=== PATIENT | female | born 1935 | race Caucasian/White ===

== ENCOUNTER 2022-01-13 19:15 | Inpatient (IN) | payer MEDICARE, BC, SELFPAY ==
[2022-01-13 19:25] VITALS: BP 219/109; PULSE 74; RESP 18; TEMP 36.2; O2SAT 95; BMI 26.1
[2022-01-13 19:30] VITALS: BP 208/107; PULSE 71; RESP 16; O2SAT 97
--- NOTE | 2022-01-13 19:49 | ED.GENADULT ---
HPI - General Adult General Chief complaint: Weakness Stated complaint: Diarrhea, Shaking, med reaction Time Seen by Provider: 01/13/22 19:42 History of Present Illness HPI narrative: This 86-year-old female comes in reporting 3 days of symptoms including generalized weakness, nausea, lightheadedness, dry mouth, decreased appetite. She states that she started taking Zoloft 25 mg just before these symptoms began. Prior to this she was in her normal health with prior history of hypertension and back pain. It was after taking the Zoloft that she began having these symptoms. She states that she did not take this medicine today. Her last dose was yesterday morning. She does not report any fevers or chest pain. She does not have any shortness of breath. Related Data Home Medications Medication Instructions Recorded Confirmed hydrochlorothiazide 25 mg tablet mg 01/13/22 potassium chloride 20 mEq meq PO 01/13/22 tablet,extended release(part/cryst) sertraline 25 mg tablet mg 01/13/22 simvastatin 20 mg tablet mg 01/13/22 triamcinolone acetonide 0.1 % applic topical 01/13/22 topical cream Allergies Allergy/AdvReac Type Severity Reaction Status Date / Time lisinopril Allergy Mild Verified 01/13/22 19:35 losartan Allergy Verified 01/13/22 19:35 Penicillins Allergy Verified 01/13/22 19:35 Review of Systems Status of ROS: Reports: 10 or more systems reviewed and unremarkable except as noted in History and below Narrative: Constitutional: No fevers, no weight gain or loss. Eyes: No discharge. No vision changes. HENT: No congestion, no sore throat, no ear pain. Cardiovascular: No chest pain, no palpitations. Respiratory: No shortness of breath, no wheezes, no cough. Gastrointestinal: No abdominal pain, no vomiting, no diarrhea. She does report nausea and loss of appetite. Genitourinary: No dysuria, no hematuria. Musculoskeletal: Normal range of motion. Skin: No rashes, no pruritis. Neurological: No dizziness, weakness, sensory change, speech change. Endo/Heme/Allergies: No bruising or bleeding. No polydipsia. Pysch: no suicidality, no anxiety, no insomnia. All other systems reviewed and are negative. [facility] Medical History (Updated 01/13/22 @ 23:58 by Rajiv Roberts MD) Anxiety Cholesteatoma HTN (hypertension) Hypokalemia Osteoarthritis of right knee Osteopenia Squamous cell carcinoma in situ Social History Smoking Status: Never smoker Do you use any of these nicotine containing products: None Non-prescribed substance use: denies use Exam Narrative: Exam Narrative: Constitutional: Well-developed, well-nourished, no acute distress. HEENT: Normocephalic, atraumatic. Neck: Normal range of motion. Nontender. Supple. Heart: Regular. No murmurs. Normal rate. Intact distal pulses. Lungs: Clear to auscultation. No chest discomfort. No wheezes, rhonchi, or rales. Abdomen: Normal bowel sounds. Nontender. No rebound tenderness. Genitalia: Deferred. Back: No midline tenderness. Normal range of motion. Extremities: Normal range of motion. No injury. Skin: Intact. No rash. Warm. No erythema or pallor. Neurologic: No altered sensation. No weakness. Alert and oriented. Psychiatric: No suicidality. No anxiety or depression. No insomnia. Nursing notes and vitals signs are reviewed. Const: Vital Signs, click to edit/add: Vital Signs - 24 hr 01/13/22 19:25 01/13/22 20:32 01/13/22 20:00 Temperature 97.1 F L Pulse Rate [Pulse Oximeter] 74 74 75 Respiratory Rate 18 16 16 Blood Pressure [Ri ght Upper Arm] 219/109 H 206/106 H 204/111 H Pulse Oximetry 95 98 98 Oxygen Delivery Me thod Room Air Room Air Room Air 01/13/22 19:30 01/13/22 22:00 Temperature Pulse Rate [Pulse Oximeter] 71 80 Respiratory Rate 16 16 Blood Pressure [Ri ght Upper Arm] 208/107 H 177/94 H Pulse Oximetry 97 93 Oxygen Delivery Me thod Room Air Room Air Course Vital Signs Vital signs: Initial Vital Signs Temperature 97.1 F L 01/13/22 19:25 Temperature Source Temporal Artery Scan 01/13/22 19:25 Pulse Rate 74 01/13/22 19:25 Pulse Rhythm 01/13/22 19:25 Respiratory Rate 18 01/13/22 19:25 Blood Pressure 219/109 H 01/13/22 19:25 Blood Pressure Mean 145 01/13/22 19:25 Blood Pressure Position Supine 01/13/22 19:25 Pulse Oximetry 95 01/13/22 19:25 Oxygen Delivery Method 01/13/22 19:25 Vital Signs Temperature 97.1 F L 01/13/22 19:25 Pulse Rate 74 01/13/22 19:25 Respiratory Rate 18 01/13/22 19:25 Blood Pressure 219/109 H 01/13/22 19:25 Pulse Oximetry 95 01/13/22 19:25 Oxygen Delivery Method 01/13/22 19:25 Temperature 97.1 F L 01/13/22 19:25 Pulse Rate 80 01/13/22 22:00 Respiratory Rate 16 01/13/22 22:00 Blood Pressure 177/94 H 01/13/22 22:00 Pulse Oximetry 93 01/13/22 22:00 Oxygen Delivery Method 01/13/22 22:00 Medical Decision Making MDM Narrative Medical decision making narrative: This patient comes in reporting generalized weakness with nausea and other vague complaints over the past few days. She was thinking that this is adverse effects related to taking a new medication for depression, namely Zoloft. Lab results however give a better explanation with significant hyponatremia with sodium at 118. In addition to this her potassium is at 2.8. The patient did receive a bolus of 500 mL of normal saline. After this I attempted to admit this patient but the hospital is full for the time being but beds were to open up and become available close to midnight. I was instructed by the hospitalist occupational therapy supervisor, Dr. Mcbride, to speak with the overnight physician about admitting this patient. So the patient received a maintenance IV fluids at 150 mL/hr and a 10 mEq infusion of potassium. Her hyponatremia and hypokalemia may have been brewing for several days so replenishing these deficiencies needs to happen slowly. Lab Data Labs: Lab Results 01/13/22 01/13/22 01/13/22 Range/Units 20:02 20:02 20:02 WBC 7.17 (4.50-11.00) K/uL RBC 5.08 (4.00-5.20) m/uL Hgb 14.5 (12.0-16.0) gm/dL Hct 40.9 (33.0-51.0) % MCV 81 (80-100) fL MCH 29 (26-34) pg MCHC 36 (32-36) gm/dL RDW Coeff of Aimee 12.1 (11.5-15.5) % Plt Count 223 (140-440) K/uL Neut % (Auto) 73.6 H (42.0-72.0) % Lymph % (Auto) 17.0 L (20-44) % [place] % (Auto) 8.4 (0.0-11.0) % Eos % (Auto) 0.3 (0.0-7.0) % Baso % (Auto) 0.4 (0.0-3.0) % Neut # (Auto) 5.30 (1.7-7.0) K/uL Lymph # (Auto) 1.20 (0.90-2.90) K/uL [place] # (Auto) 0.60 (0.00-0.90) K/UL Eos # (Auto) 0.02 (0.00-0.50) K/uL Baso # (Auto) 0.03 (0.00-0.30) K/uL Abs Immat Gran (auto) 0.02 (0.00-0.30) K/uL Sodium 118 L* (135-149) mmol/L Potassium 2.8 L* (3.6-5.1) mmol/L Chloride 81 L (96-114) mmol/L Carbon Dioxide 26 (20-32) mmol/L BUN 9 (7-30) mg/dL Creatinine 0.5 (0.5-1.5) mg/dL Estimated Creat Clear 40.72 Estimated GFR 92 ml/min Glucose 131 H (60-115) mg/dL Calcium 9.0 (8.4-10.6) mg/dL SARS-CoV-2 (PCR) (Negative) POC Troponin I 0.00 L (0.01-0.04) ng/ml 01/13/22 Range/Units 22:35 WBC (4.50-11.00) K/uL RBC (4.00-5.20) m/uL Hgb (12.0-16.0) gm/dL Hct (33.0-51.0) % MCV (80-100) fL MCH (26-34) pg MCHC (32-36) gm/dL RDW Coeff of Aimee (11.5-15.5) % Plt Count (140-440) K/uL Neut % (Auto) (42.0-72.0) % Lymph % (Auto) (20-44) % [place] % (Auto) (0.0-11.0) % Eos % (Auto) (0.0-7.0) % Baso % (Auto) (0.0-3.0) % Neut # (Auto) (1.7-7.0) K/uL Lymph # (Auto) (0.90-2.90) K/uL [place] # (Auto) (0.00-0.90) K/UL Eos # (Auto) (0.00-0.50) K/uL Baso # (Auto) (0.00-0.30) K/uL Abs Immat Gran (auto) (0.00-0.30) K/uL Sodium (135-149) mmol/L Potassium (3.6-5.1) mmol/L Chloride (96-114) mmol/L Carbon Dioxide (20-32) mmol/L BUN (7-30) mg/dL Creatinine (0.5-1.5) mg/dL Estimated Creat Clear Estimated GFR ml/min Glucose (60-115) mg/dL Calcium (8.4-10.6) mg/dL SARS-CoV-2 (PCR) Negative SARS-CoV-2 (Negative) POC Troponin I (0.01-0.04) ng/ml ECG Data Attestation: I personally reviewed and interpreted this ECG as follows: Interpretation: Normal sinus rhythm. Rate is 71 beats per minute. There are no specific ST or T-wave abnormalities. Discharge Plan Discharge Clinical Impression: Hyponatremia, Hypokalemia Patient Disposition: Admitted As Inpatient Condition: Unchanged Prescriptions: No Action triamcinolone acetonide 0.1 % cream TOPICAL Label Comments: APPLY TOPICALLY TO THE AFFECTED AREA TWICE DAILY. DO NOT USE ON FACE potassium chloride 20 mEq tablet,ER particles/crystals PO simvastatin 20 mg tablet sertraline 25 mg tablet hydrochlorothiazide 25 mg tablet Follow Up/Referrals: Trav Kinney MD [Primary Care Provider] -
[2022-01-13 20:00] VITALS: BP 204/111; PULSE 75; RESP 16; O2SAT 98
[2022-01-13] MEDS: 0.9 % SODIUM CHLORIDE 500 ML 500 ML IV (20:12)
[2022-01-13] MEDS: ONDANSETRON 2 MG/ML inj 4 MG IVP (20:12)
[2022-01-13 20:15] LABS: Basophils Absolute Auto 0.03 K/uL (0.00-0.30); Basophils Percent Auto 0.4 % (0.0-3.0); Eosinophils Absolute Auto 0.02 K/uL (0.00-0.50); Eosinophils Percent Auto 0.3 % (0.0-7.0); Hematocrit 40.9 % (33.0-51.0); Hemoglobin* 14.5 gm/dL (12.0-16.0); Immature Granulocytes Abs Auto 0.02 K/uL (0.00-0.30); Mean Corpuscular HGB Conc 36 gm/dL (32-36); Mean Corpuscular Hemoglobin 29 pg (26-34); Mean Corpuscular Volume 81 fL (80-100); Monocytes Percent Auto 8.4 % (0.0-11.0); Neutrophils Percent Auto 73.6 % (42.0-72.0); Platelet Count* 223 K/uL (140-440); RDW Coefficient of Variation % 12.1 % (11.5-15.5); Red Blood Count 5.08 m/uL (4.00-5.20); White Blood Count* 7.17 K/uL (4.50-11.00)
[2022-01-13 20:17] LABS: Slide Review Reflex No
[2022-01-13 20:30] LABS: Chloride* 81 mmol/L (96-114)
[2022-01-13 20:32] VITALS: BP 206/106; PULSE 74; RESP 16; O2SAT 98
[2022-01-13 20:33] LABS: Blood Urea Nitrogen* 9 mg/dL (7-30); Carbon Dioxide* 26 mmol/L (20-32); Creatinine* 0.5 mg/dL (0.5-1.5); Est. Creatinine Clearance* 40.72; Estimated Glomerular Filt Rate 92 ml/min; Glucose* 131 mg/dL (60-115)
--- NOTE | 2022-01-13 20:37 | ED.NURSE ---
MD Roberts updated on pt VS.
[2022-01-13 20:38] LABS: Potassium* 2.8 mmol/L (3.6-5.1)
[2022-01-13 20:39] LABS: Sodium* 118 mmol/L (135-149)
[2022-01-13] MEDS: POTASSIUM CHLORIDE 10 MEQ/100 ML PIGGYBACK 100 MEQ IVPB (21:11)
[2022-01-13] MEDS: 0.9 % SODIUM CHLORIDE 1000 ml 1,000 ML 150 ML IV (21:11)
[2022-01-13] MEDS: cloNIDine HCL 0.1 MG TABLET 0.2 MG PO (21:14)
--- NOTE | 2022-01-13 21:40 | ED.NURSE ---
- Lisbet friend/contact - pt states this person is allowed any information on her care here.
[2022-01-13 22:00] VITALS: BP 177/94; PULSE 80; RESP 16; O2SAT 93
--- NOTE | 2022-01-13 22:34 | ED.NURSE ---
Pt oxygen saturation 86-89% while sleeping, when awake pt returns to mid 90%, MD Roberts updated, 2L nc applied for sleeping. pt denies any SOB or change from normal breathing.
[2022-01-13 23:00] VITALS: BP 144/82; PULSE 76; RESP 16; O2SAT 95
[2022-01-13 23:28] LABS: SARS PCR* Negative SARS-CoV-2 (Negative)
[2022-01-14] VITALS (11 sets, daily range): BP systolic 127–155; BP diastolic 65–89; PULSE 66–83; RESP 14–20; TEMP 36.6–36.7; O2SAT 93–96; BMI 25.7
--- NOTE | 2022-01-14 03:00 | P.CCN_ITS ---
Subjective Subjective Interval history: Thank you for [facility]. This service is available for further assistance as requested by your care team by calling [phone].
--- NOTE | 2022-01-14 03:00 | W.PM.CROSSCO ---
Subjective Subjective Interval history: [facility] This service is available for further assistance as requested by your care team by calling [phone].
--- NOTE | 2022-01-14 03:38 | PM.IMPN1 ---
Subjective Interval history: [facility] hospitalist eHospitalist was contacted with request of consultation on Kiley Mccord. Ms Mccord presented to the hospital with 3 days of nasuea and vomiting as well as feeling tired/weak. she started taking zoloft few days ago and she takes HCTZ for HTN for many years. she indicated she had no fever or chills. no abd pain, chest pain or shortness of breath. Home medications: see EMR PMH: see EMR PSH: see EMR exam: performed via interactive vidoe with the help of her nurse at the bedside alert, cooperative, not in acute distress oral mucosa moist CTAB, no added sounds S1S2+0 no tenderness in the abodmen when palpated by her primary nurse alert and oriented, no focal deficit no rash, ulcers or lesions no pitting edema labs and imaging were reviewed A/P: hyponatremia hypokaelmia likely related to HCTZ and zoloft I couneled the pt she should not take any again in the future aggressive K replacement gentle IV NS will trend BMP Thanks for contacting [facility] Exam Const: Vital Signs, click to edit/add: Vital Signs - 24 hr 01/13/22 19:25 01/13/22 20:32 01/13/22 20:00 Temperature 97.1 F L Pulse Rate [Left P ulse Oximeter] Pulse Rate [Pulse Oximeter] 74 74 75 Respiratory Rate 18 16 16 Blood Pressure [Ri ght Arm] Blood Pressure [Ri ght Upper Arm] 219/109 H 206/106 H 204/111 H Pulse Oximetry 95 98 98 Oxygen Delivery Me thod Room Air Room Air Room Air Oxygen Flow Rate 01/13/22 19:30 01/13/22 22:00 01/13/22 23:00 Temperature Pulse Rate [Left P ulse Oximeter] Pulse Rate [Pulse Oximeter] 71 80 76 Respiratory Rate 16 16 16 Blood Pressure [Ri ght Arm] Blood Pressure [Ri ght Upper Arm] 208/107 H 177/94 H 144/82 H Pulse Oximetry 97 93 95 Oxygen Delivery Me thod Room Air Room Air Nasal Cannula Oxygen Flow Rate 2 01/14/22 00:07 01/14/22 01:32 Temperature 97.9 F Pulse Rate [Left P ulse Oximeter] 66 Pulse Rate [Pulse Oximeter] 80 Respiratory Rate 16 16 Blood Pressure [Ri ght Arm] 141/78 H Blood Pressure [Ri ght Upper Arm] 155/89 H Pulse Oximetry 96 94 Oxygen Delivery Me thod Nasal Cannula Room Air Oxygen Flow Rate 2 Labs Labs: Laboratory Results - last 24 hr 01/13/22 01/13/22 01/13/22 20:02 20:02 20:02 WBC 7.17 RBC 5.08 Hgb 14.5 Hct 40.9 MCV 81 MCH 29 MCHC 36 RDW Coeff of Aimee 12.1 Plt Count 223 Neut % (Auto) 73.6 H Lymph % (Auto) 17.0 L [place] % (Auto) 8.4 Eos % (Auto) 0.3 Baso % (Auto) 0.4 Neut # (Auto) 5.30 Lymph # (Auto) 1.20 [place] # (Auto) 0.60 Eos # (Auto) 0.02 Baso # (Auto) 0.03 Abs Immat Gran (auto) 0.02 Sodium 118 L* Potassium 2.8 L* Chloride 81 L Carbon Dioxide 26 BUN 9 Creatinine 0.5 Estimated Creat Clear 40.72 Estimated GFR 92 Glucose 131 H Calcium 9.0 SARS-CoV-2 (PCR) POC Troponin I 0.00 L 01/13/22 22:35 WBC RBC Hgb Hct MCV MCH MCHC RDW Coeff of Aimee Plt Count Neut % (Auto) Lymph % (Auto) [place] % (Auto) Eos % (Auto) Baso % (Auto) Neut # (Auto) Lymph # (Auto) [place] # (Auto) Eos # (Auto) Baso # (Auto) Abs Immat Gran (auto) Sodium Potassium Chloride Carbon Dioxide BUN Creatinine Estimated Creat Clear Estimated GFR Glucose Calcium SARS-CoV-2 (PCR) Negative SARS-CoV-2 POC Troponin I
[2022-01-14 04:05] LABS: Chloride* 85 mmol/L (96-114)
[2022-01-14 04:07] LABS: Creatinine* 0.5 mg/dL (0.5-1.5); Est. Creatinine Clearance* 42.25; Estimated Glomerular Filt Rate 92 ml/min
--- NOTE | 2022-01-14 04:07 | PM.IMCN1 ---
Date of Consult Consult date: 01/14/22 Primary Care Provider: Trav Kinney MD Consult Narrative Narrative[facility] with request of consultation on Kiley Mccord. Ms Mccord presented to the hospital with 3 days of nasuea and vomiting as well as feeling tired/weak. she started taking zoloft few days ago and she takes HCTZ for HTN for many years. she indicated she had no fever or chills. no abd pain, chest pain or shortness of breath. Home medications: see EMR PMH: see EMR PSH: see EMR exam: performed via interactive vidoe with the help of her nurse at the bedside alert, cooperative, not in acute distress oral mucosa moist CTAB, no added sounds S1S2+0 no tenderness in the abodmen when palpated by her primary nurse alert and oriented, no focal deficit no rash, ulcers or lesions no pitting edema labs and imaging were reviewed A/P: hyponatremia hypokaelmia likely related to HCTZ and zoloft I couneled the pt she should not take any again in the future aggressive K replacement gentle IV NS will trend BMP [facility] Please reach out to us with any questions or concerns. [facility] Medical History (Updated 01/13/22 @ 23:58 by Rajiv Roberts MD) Anxiety Cholesteatoma HTN (hypertension) Hypokalemia Osteoarthritis of right knee Osteopenia Squamous cell carcinoma in situ Surgical History (Updated 01/14/22 @ 01:23 by Jessica Jolly RN) History of hysterectomy Social History Highest level of school completed/degree received: some college, no degree Smoking Status: Never smoker Do you use any of these nicotine containing products: None Second hand tobacco smoke exposure: No How often do you have a drink containing alcohol: 2-3 times a week How many standard drinks containing alcohol do you have on a typical day: 1 or 2 How often do you have six or more drinks on one occasion: Never AUDIT-C Alcohol total score: 3 Non-prescribed substance use: denies use Caffeine: Yes (2-3 cups of coffee) service: No Meds Home Medications and Allergies Home Medications Medication Instructions Recorded Confirmed Type hydrochlorothiazide 25 mg tablet mg 01/13/22 History potassium chloride 20 mEq meq PO 01/13/22 History tablet,extended release(part/cryst) sertraline 25 mg tablet mg 01/13/22 History simvastatin 20 mg tablet mg 01/13/22 History triamcinolone acetonide 0.1 % applic topical 01/13/22 History topical cream Allergies Allergy/AdvReac Type Severity Reaction Status Date / Time lisinopril Allergy Mild Verified 01/13/22 19:35 losartan Allergy Verified 01/13/22 19:35 Penicillins Allergy Verified 01/13/22 19:35 Exam Const: Vital Signs, click to edit/add: Vital Signs - 24 hr 01/13/22 19:25 01/13/22 20:32 01/13/22 20:00 Temperature 97.1 F L Pulse Rate [Left P ulse Oximeter] Pulse Rate [Pulse Oximeter] 74 74 75 Respiratory Rate 18 16 16 Blood Pressure [Ri ght Arm] Blood Pressure [Ri ght Upper Arm] 219/109 H 206/106 H 204/111 H Pulse Oximetry 95 98 98 Oxygen Delivery Me thod Room Air Room Air Room Air Oxygen Flow Rate 01/13/22 19:30 01/13/22 22:00 01/13/22 23:00 Temperature Pulse Rate [Left P ulse Oximeter] Pulse Rate [Pulse Oximeter] 71 80 76 Respiratory Rate 16 16 16 Blood Pressure [Ri ght Arm] Blood Pressure [Ri ght Upper Arm] 208/107 H 177/94 H 144/82 H Pulse Oximetry 97 93 95 Oxygen Delivery Me thod Room Air Room Air Nasal Cannula Oxygen Flow Rate 2 01/14/22 00:07 01/14/22 01:32 Temperature 97.9 F Pulse Rate [Left P ulse Oximeter] 66 Pulse Rate [Pulse Oximeter] 80 Respiratory Rate 16 16 Blood Pressure [Ri ght Arm] 141/78 H Blood Pressure [Ri ght Upper Arm] 155/89 H Pulse Oximetry 96 94 Oxygen Delivery Me thod Nasal Cannula Room Air Oxygen Flow Rate 2 Labs Labs: Short CBC 01/13/22 Range/Units 20:02 WBC 7.17 (4.50-11.00) K/uL Hgb 14.5 (12.0-16.0) gm/dL Hct 40.9 (33.0-51.0) % Plt Count 223 (140-440) K/uL BMP 01/13/22 20:02 Sodium 118 L* Potassium 2.8 L* Chloride 81 L Carbon Dioxide 26 BUN 9 Creatinine 0.5 Glucose 131 H Calcium 9.0
[2022-01-14 04:08] LABS: Blood Urea Nitrogen* 8 mg/dL (7-30); Carbon Dioxide* 29 mmol/L (20-32); Glucose* 107 mg/dL (60-115)
[2022-01-14 04:10] LABS: Potassium* 2.7 mmol/L (3.6-5.1); Sodium* 120 mmol/L (135-149)
[2022-01-14] MEDS: 0.9 % SODIUM CHLORIDE 1000 ml 1,000 ML 75 ML IV (04:20)
[2022-01-14] MEDS: POTASSIUM CHLORIDE 10 MEQ/100 ML PIGGYBACK 100 MEQ IVPB ×2 (04:20→06:53)
[2022-01-14] MEDS: POTASSIUM CHLORIDE 10 MEQ CAPSULE ER 40 MEQ PO (04:26)
--- NOTE | 2022-01-14 04:31 | PC.NURSE ---
Called by lab Na+ 120, K+2.7 with replacement medications yet to be administered so no calls made
--- NOTE | 2022-01-14 06:05 | PC.NURSE ---
Admission Note [id number]: Pt pleasant and cooperative, VSS, afebrile, back pain consistently 0/10. Episode of nausea post PO medication intake x1, order for Zofran obtained, see eMAR for medication administration. Pt marginally tolerating infusion of potassium. Pt O2 sats noted to dip into 80s while sleeping, Pt denies Dx of BARBARA. No episodes of diarrhea reported since early AM 01/13, BS active upon admission, hyperactive post PO intake, audible without stethoscope.
[2022-01-14 08:57] LABS: Magnesium* 1.3 mg/dL (1.5-2.6)
[2022-01-14] MEDS: POTASSIUM CHLORIDE 10 MEQ, LIDOCAINE 1 % 1 ML in 0.9 % SODIUM CHLORIDE 100 ml 100 ML 106 MEQ IVPB (09:12)
[2022-01-14] MEDS: POTASSIUM BICARB 25 MEQ EFFERVESCENT TAB 50 MEQ PO (10:40)
[2022-01-14 13:52] LABS: Chloride* 88 mmol/L (96-114); Potassium* 4.4 mmol/L (3.6-5.1)
--- NOTE | 2022-01-14 13:52 | PC.NURSE ---
End of Shift Note: Patient has been alert and orientated for all of my shift. She has sat up in the chair for a while. Is not tolerating her diet very well c/o having diarrhea right after eating. States this has been going on even before she came into the hospital. Explain that we will continue to monitor and update MD as needed. Will give report to the next shift shortly.
[2022-01-14 13:55] LABS: Blood Urea Nitrogen* 9 mg/dL (7-30); Carbon Dioxide* 29 mmol/L (20-32); Creatinine* 0.6 mg/dL (0.5-1.5); Est. Creatinine Clearance* 42.25; Estimated Glomerular Filt Rate 88 ml/min; Glucose* 117 mg/dL (60-115)
[2022-01-14 13:56] LABS: Calcium* 8.4 mg/dL (8.4-10.6)
[2022-01-14 14:03] LABS: Sodium* 123 mmol/L (135-149)
--- NOTE | 2022-01-14 14:18 | PM.IMHP1 ---
Hospitalist- H&P: HPI History of Present Illness Date Seen: 01/14/22 Chief complaint: Diarrhea, Shaking, med reaction Narrative: Kiley Mccord is a 86 year old female admitted to the hospital with several days of progressive shakiness, weakness, diarrhea. Patient reports that 1-2 weeks ago she was in her usual state of good health. She began to feel shakiness and unsteadiness. She reports her head was in a fog. She developed diarrhea and lost her appetite as well. She does note that her appetite has been poor for up to a month. She has not had vomiting but she has had nausea as well. She was seen in clinic where she was found to have low sodium and was referred to the hospital for that. She is at longstanding therapy for hypertension with hydrochlorothiazide 25 mg daily. Her sodium was last checked in clinic in June and was 134. Few days ago she was started on sertraline 25 mg daily for anxiety. She has been prescribed potassium 20 mEq to take 3 times a day chronically. She reports that the pills are big and hard to swallow and she typically takes these pills only twice a day. Review of Systems Narrative: Patient reports that she has been having back problems in the past few months. She was scheduled for a an injection in her back today. She was advised to lose weight as a part of a treatment for her back problems. She did have some intentional weight loss but then reports in the last month she thinks she has been losing weight because she has lost her appetite. She is not having any postprandial pain or nausea. Just reports a poor appetite. Normally she is constipated but in the last few days she has also had diarrhea. There is no black or bloody stools. Not had a fever or abdominal pain. [facility] Medical History (Updated 01/14/22 @ 14:29 by Rick Grimes MD) Anxiety Cholesteatoma HTN (hypertension) Hypokalemia Osteoarthritis of right knee Osteopenia Squamous cell carcinoma in situ Surgical History History of hysterectomy Family History (Updated 01/14/22 @ 14:23 by Rick Grimes MD) Mother High blood pressure Social History (Updated 01/14/22 @ 14:24 by Rick Grimes MD) Narrative: She lives at [address] [place] [address], independent apartments. She reports generally this is going well for her. She was a few years ago and does find that sometimes his heart being alone. 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 Her son Danny is healthcare power of soybean specialties cook. Code status is full. Highest level of school completed/degree received: some college, no degree Smoking Status: Never smoker Do you use any of these nicotine containing products: None Second hand tobacco smoke exposure: No How often do you have a drink containing alcohol: 2-3 times a week How many standard drinks containing alcohol do you have on a typical day: 1 or 2 How often do you have six or more drinks on one occasion: Never AUDIT-C Alcohol total score: 3 Non-prescribed substance use: denies use Caffeine: Yes (2-3 cups of coffee) service: No Meds Home Medications and Allergies Home Medications Medication Instructions Recorded Confirmed Type hydrochlorothiazide 25 mg tablet 25 mg PO DAILY 01/13/22 01/14/22 History potassium chloride 20 mEq 20 meq PO TIDWM 01/13/22 01/14/22 History tablet,extended release(part/cryst) sertraline 25 mg tablet 25 mg PO DAILY 01/13/22 01/14/22 History simvastatin 20 mg tablet 20 mg PO HS 01/13/22 01/14/22 History calcium carbonate 600 mg-vitamin 1 tab PO BID 01/14/22 01/14/22 History D3 20 mcg (800 unit) tablet (Caltrate with Vitamin D3) lorazepam 0.5 mg tablet (Ativan) 0.25 mg PO DAILY PRN 01/14/22 01/14/22 History polyethylene glycol 3350 17 17 g PO DAILY PRN 01/14/22 01/14/22 History gram/dose oral powder (Miralax) Allergies Allergy/AdvReac Type Severity Reaction Status Date / Time lisinopril Allergy Mild Verified 01/13/22 19:35 losartan Allergy Verified 01/13/22 19:35 Penicillins Allergy Verified 01/13/22 19:35 Exam Narrative: Exam Narrative: She is alert and appears in no distress. She gives her own history with good detail. Head is without trauma. Eyes are normal. Extraocular movements are full. Visual ruiz are intact. Oropharynx with dry mucous membranes. No facial asymmetry. Neck is supple without mass or adenopathy. Respirations are clear to auscultation. Cardiovascular: S1, S2, regular rate and rhythm. No murmur gallop or rub. Abdomen: Bowel sounds active. Abdomen is soft without tenderness or mass. Extremities without significant edema. She has intact pulses. She moves all 4 extremities well. Const: Vital Signs, click to edit/add: Vital Signs - 24 hr 01/13/22 19:25 01/13/22 20:32 01/13/22 20:00 Temperature 97.1 F L Pulse Rate Pulse Rate [Left P ulse Oximeter] Pulse Rate [Pulse Oximeter] 74 74 75 Respiratory Rate 18 16 16 Blood Pressure [Ri ght Arm] Blood Pressure [Ri ght Upper Arm] 219/109 H 206/106 H 204/111 H Pulse Oximetry 95 98 98 Oxygen Delivery Me thod Room Air Room Air Room Air Oxygen Flow Rate 01/13/22 19:30 01/13/22 22:00 01/13/22 23:00 Temperature Pulse Rate Pulse Rate [Left P ulse Oximeter] Pulse Rate [Pulse Oximeter] 71 80 76 Respiratory Rate 16 16 16 Blood Pressure [Ri ght Arm] Blood Pressure [Ri ght Upper Arm] 208/107 H 177/94 H 144/82 H Pulse Oximetry 97 93 95 Oxygen Delivery Me thod Room Air Room Air Nasal Cannula Oxygen Flow Rate 2 01/14/22 00:07 01/14/22 01:32 01/14/22 04:41 Temperature 97.9 F Pulse Rate Pulse Rate [Left P ulse Oximeter] 66 Pulse Rate [Pulse Oximeter] 80 Respiratory Rate 16 16 16 Blood Pressure [Ri ght Arm] 141/78 H Blood Pressure [Ri ght Upper Arm] 155/89 H Pulse Oximetry 96 94 94 Oxygen Delivery Me thod Nasal Cannula Room Air Room Air Oxygen Flow Rate 2 01/14/22 01:01 01/14/22 05:25 01/14/22 08:25 Temperature 97.9 F 97.8 F 98.1 F Pulse Rate Pulse Rate [Left P ulse Oximeter] 66 71 74 Pulse Rate [Pulse Oximeter] Respiratory Rate 16 18 20 Blood Pressure [Ri ght Arm] 141/78 H 127/74 141/79 H Blood Pressure [Ri ght Upper Arm] Pulse Oximetry 94 94 96 Oxygen Delivery Me thod Room Air Room Air Room Air Oxygen Flow Rate 2 01/14/22 10:54 Temperature Pulse Rate 70 Pulse Rate [Left P ulse Oximeter] Pulse Rate [Pulse Oximeter] Respiratory Rate Blood Pressure [Ri ght Arm] Blood Pressure [Ri ght Upper Arm] Pulse Oximetry Oxygen Delivery Me thod Oxygen Flow Rate Hospitalist - H&P: Result Labs Labs: Short CBC 01/13/22 Range/Units 20:02 WBC 7.17 (4.50-11.00) K/uL Hgb 14.5 (12.0-16.0) gm/dL Hct 40.9 (33.0-51.0) % Plt Count 223 (140-440) K/uL BMP 01/13/22 01/14/22 01/14/22 20:02 03:45 13:32 Sodium 118 L* 120 L* 123 L* Potassium 2.8 L* 2.7 L* 4.4 Chloride 81 L 85 L 88 L Carbon Dioxide 26 29 29 BUN 9 8 9 Creatinine 0.5 0.5 0.6 Glucose 131 H 107 117 H Calcium 9.0 8.0 L 8.4 Assessment and Plan Assessment and plan (1) Hyponatremia: Problem comment: Likely due to hydrochlorothiazide, sertraline, recent diarrhea and loss of appetite. Status: Acute Assessment and Plan: Gradual correction by fluid restriction, holding hydrochlorothiazide, hydration and increased sodium in the diet. (2) Hypokalemia: Status: Acute Assessment and Plan: Replace with oral potassium. (3) HTN (hypertension): Status: Acute Assessment and Plan: Will stop her hydrochlorothiazide and replace it with torsemide. I did discuss heard possible adverse drug reaction to lisinopril which is a cough and losartan which sounds like it might be a rash. Patient tells me that she has chronic rash so losartan may not be the cause for this and may be consideration for blood pressure control in the future. It might decrease her need for potassium supplementation. (4) Anorexia: Problem comment: Cause is uncertain. Will see how she responds to correction of her sodium Status: Acute Assessment and Plan: Reassess her appetite and oral intake as her sodium corrects. (5) Diarrhea: Status: Acute Assessment and Plan: Continue to monitor. Further evaluation is warranted if this does not resolve on its own (6) Hypomagnesemia: Status: Acute Assessment and Plan: Replaced with IV and oral. Plan Patient will be admitted to the hospital for correction and monitoring of electrolytes, as well as symptoms of diarrhea, nausea, anorexia, shakiness and sense of head in the fog. Some of the symptoms should improve with correction of her sodium. Total time spent today is 70 minutes, 40 minutes in coordination of care and discussing with patient and other providers management of symptoms, hypertension and abnormal electrolytes.
[2022-01-14] MEDS: TORSEMIDE 5 MG TABLET PO (16:30)
[2022-01-14] MEDS: SODIUM CHLORIDE 1 GM TABLET PO (17:50)
[2022-01-14] MEDS: POTASSIUM CHLORIDE 10 MEQ CAPSULE ER 30 MEQ PO (17:50)
[2022-01-14] MEDS: SIMVASTATIN 20 MG TABLET PO (20:48)
--- NOTE | 2022-01-14 22:47 | PC.NURSE ---
Shift [id number]- Patient is up ad toi and tolerates well. She denies pain and is alert and oriented. Appetite is intact. She appears to sleep this evening.
[2022-01-15 02:49] VITALS: BP 137/77; PULSE 72; RESP 16; TEMP 36.6; O2SAT 93
--- NOTE | 2022-01-15 06:10 | PC.NURSE ---
Shift Note 23-07: Pt pleasant and cooperative, VSS, afebrile, denies pain, up ad toi in the room. Pt slept soundly for most of the shift.
[2022-01-15 07:31] LABS: Chloride* 95 mmol/L (96-114); Potassium* 3.9 mmol/L (3.6-5.1); Sodium* 130 mmol/L (135-149)
[2022-01-15 07:33] LABS: Creatinine* 0.6 mg/dL (0.5-1.5); Est. Creatinine Clearance* 42.25; Estimated Glomerular Filt Rate 88 ml/min
[2022-01-15 07:34] LABS: Blood Urea Nitrogen* 12 mg/dL (7-30); Calcium* 8.5 mg/dL (8.4-10.6); Carbon Dioxide* 30 mmol/L (20-32); Glucose* 99 mg/dL (60-115)
[2022-01-15 07:35] LABS: Magnesium* 2.1 mg/dL (1.5-2.6)
[2022-01-15 07:45] VITALS: BP 152/77; PULSE 85; RESP 18; TEMP 36.5; O2SAT 93
[2022-01-15] MEDS: TORSEMIDE 5 MG TABLET PO (07:50)
[2022-01-15] MEDS: POTASSIUM CHLORIDE 10 MEQ CAPSULE ER 30 MEQ PO (07:51)
[2022-01-15] MEDS: SODIUM CHLORIDE 1 GM TABLET PO (07:51)
[2022-01-15] MEDS: MAGNESIUM OXIDE 400 MG TABLET PO (07:51)
[2022-01-15 08:55] VITALS: PULSE 78
--- NOTE | 2022-01-15 08:59 | PM.DS1 ---
DS: Providers Provider Date Seen: 01/15/22 Date of admission: 01/14/22 08:57 Primary care physician: Clover Kerr Admitting Clinician: Rajiv Roberts MD Attending Physician on discharge: Crispin Grimes MD Date of Discharge: 01/15/22 DS: Diagnosis Discharge Diagnosis (1) Hyponatremia: Status: Acute Problem details: Likely due to hydrochlorothiazide, sertraline, recent diarrhea and loss of appetite. Sodium on discharge is 130 (2) Anorexia: Status: Acute Problem details: Appetite is improved today. Continue to monitor as outpatient (3) Hypomagnesemia: Status: Acute Problem details: Magnesium 2.1 on discharge (4) Hypokalemia: Status: Acute Problem details: Resolved with potassium replacement. Change size of potassium pill to 10 mEq so they are easier to swallow and twice daily dosing to improve compliance (5) Diarrhea: Status: Acute Problem details: Improved. Follow up as an outpatient. (6) HTN (hypertension): Status: Acute Problem details: Follow up as outpatient with medication changes DS: Summary Hospital Course Hospital Course: 86-year-old female admitted to the hospital with recent onset of dizziness, loss of appetite, diarrhea, weakness. At the time of admission she was found to have low potassium, low sodium and low magnesium. During her hospital stay her electrolyte abnormalities were corrected. Sodium today is 130. Her low sodium was thought secondary to hydrochlorothiazide and possibly also sertraline so these were discontinued. With this all of her symptoms improved as well. Specifically her diarrhea seems better. Her appetite is improved and she feels that the sense that her head was in a fog is also better. Status at Discharge Functional status at discharge: independent ambulation Overall status at discharge: patient is back to baseline Time Spent with Patient Time attestation: Total time spent providing and/or coordinating discharge services: 35 minutes Time spent: Greater than 30 minutes Exam Narrative: Exam Narrative: She is alert and appears in no distress. Speech is normal. She is oriented to her circumstances. Respirations are clear to auscultation. Cardiovascular: S1, S2, regular rate and rhythm. Abdomen: Bowel sounds active. Abdomen is soft without tenderness or mass. She has no edema. Const: Vital Signs, click to edit/add: Vital Signs - 24 hr 01/14/22 10:54 01/14/22 16:05 01/14/22 15:28 Temperature 98.1 F Pulse Rate 70 68 Pulse Rate [Left P ulse Oximeter] 73 Respiratory Rate 16 Blood Pressure [Ri ght Arm] 144/69 H Pulse Oximetry 94 Oxygen Delivery Me thod Room Air 01/14/22 19:13 01/14/22 23:30 01/14/22 23:30 Temperature 97.8 F Pulse Rate 68 Pulse Rate [Left P ulse Oximeter] 83 68 Respiratory Rate 16 14 Blood Pressure [Ri ght Arm] 133/65 Pulse Oximetry 93 Oxygen Delivery Me thod Room Air 01/14/22 23:30 01/15/22 02:49 Temperature 97.9 F Pulse Rate Pulse Rate [Left P ulse Oximeter] 68 72 Respiratory Rate 14 16 Blood Pressure [Ri ght Arm] 137/77 Pulse Oximetry 93 Oxygen Delivery Me thod Room Air Documenting provider has reviewed patient's vital signs: yes DS: Data Data Completed and Pending Labs on day of discharge: Labs from last 24 hours 01/15/22 01/14/22 01/14/22 06:07 13:32 03:45 Sodium 130 L 123 L* Potassium 3.9 4.4 Chloride 95 L 88 L Carbon Dioxide 30 29 BUN 12 9 Creatinine 0.6 0.6 Estimated Creat Clear 42.25 42.25 Estimated GFR 88 88 Glucose 99 117 H Calcium 8.5 8.4 Magnesium 2.1 1.3 L Discharge Plan Discharge Disposition: Home, Self-Care Date of Admission: 01/14/22 08:57 Attending Provider on Discharge: Rick Grimes Primary Care Provider: Trav Kinney Condition: Unchanged Anticipated Discharge Date/Time: 01/15/22 10:00 Discharge Medications: New potassium chloride 10 mEq Capsule, Extended Release 30 meq PO BIDWM Qty: 180 0RF magnesium oxide 400 mg (241.3 mg magnesium) Tablet 400 mg PO DAILY Qty: 30 0RF torsemide 10 mg tablet 10 mg PO DAILY Qty: 30 2RF Continued simvastatin 20 mg tablet 20 mg PO HS lorazepam [Ativan] 0.5 mg tablet 0.25 mg PO DAILY PRN calcium carbonate-vitamin D3 [Caltrate with Vitamin D3] 600 mg-20 mcg (800 unit) tablet 1 tab PO BID polyethylene glycol 3350 [Miralax] 17 gram/dose powder 17 g PO DAILY PRN Discontinued potassium chloride 20 mEq tablet,ER particles/crystals 20 meq PO TIDWM sertraline 25 mg tablet 25 mg PO DAILY hydrochlorothiazide 25 mg tablet 25 mg PO DAILY Discharge Orders: Discharge Order (Routine); Ordered 01/15/22 Ordered By: Rick Grimes Activity Level: No Restrictions Discharge Diet: Regular Follow Up Appointments: Clover Rice, THU [Referring] - (Appointment in 1 week to follow up abnormal electrolytes including sodium, potassium, magnesium as well as follow-up blood pressure, headache, loss of appetite, diarrhea) Forms: [facility] Info Instructions Discharge Comment: Check magnesium, basic metabolic panel
== END 2022-01-15 10:35 | disposition home or self-care (01) | DRG 641 ==
LOC: ED 23:58 → MEDSURG 01-14 00:49
PROVIDERS: Family Medicine; Student in an Organized Health Care Education/Training Program; Admitting Provider Emergency Medicine Emergency Medical Services; Emergency Provider Emergency Medicine Emergency Medical Services; PCP Family Medicine; Visit Provider Family Medicine
DX: E87.1 Hypo-osmolality and hyponatremia (principal); E87.6 Hypokalemia; I10 Essential (primary) hypertension; F41.9 Anxiety disorder, unspecified; Z85.828 Personal history of other malignant neoplasm of skin; R63.0 Anorexia; R19.7 Diarrhea, unspecified; E83.42 Hypomagnesemia; F32.A Depression, unspecified
CPT/HCPCS: 36415; 80048; 83735; 84484; 85025; 87635; 93005; 97162; 99284; 99285; A9270; G0378; J2405; J3475; J3480; J7030; J7120

== ENCOUNTER 2022-03-18 07:45 | Outpatient (CLI) | payer MEDICARE, BC, SELFPAY | END 2022-03-18 07:46 | disposition home or self-care (01) | PROVIDERS: PCP Physician Assistant Medical; Visit Provider Family Medicine | DX: M54.16 Radiculopathy, lumbar region (principal); M51.36 Other intervertebral disc degeneration, lumbar region | CPT/HCPCS: 62323; J0702; Q9966 ==

== ENCOUNTER 2022-09-23 14:45 | Outpatient (CLI) | payer MEDICARE, BC, SELFPAY | END 2022-09-23 14:46 | disposition home or self-care (01) | PROVIDERS: PCP Physician Assistant Medical; Visit Provider Family Medicine | DX: M17.12 Unilateral primary osteoarthritis, left knee (principal); M25.562 Pain in left knee | CPT/HCPCS: 64454 ==

== ENCOUNTER 2022-11-19 06:37 | Day surgery (SDC) | payer MEDICARE, BC, SELFPAY ==
[2022-11-19] MEDS: KETOROLAC OPHTH 0.5% 1 DROP EYE-RIGHT ×3 (06:51→07:34)
[2022-11-19] MEDS: TETRACAINE 0.5% OPHTH 1 DROP EYE-RIGHT ×2 (06:51→07:09)
[2022-11-19 07:05] VITALS: BMI 26.4
[2022-11-19 07:10] VITALS: BP 153/90; PULSE 79; RESP 16; TEMP 36.7; O2SAT 98
[2022-11-19] MEDS: SODIUM CHLORIDE 0.9 % (FLUSH) 10 ML SYRINGE IVF (07:15)
--- NOTE | 2022-11-19 07:45 | W.ANESCHARGE ---
Anesthesia Charges Start Date/Time Anesthesia Start Date: 11/19/22 Anesthesia Start Time: 07:47 Stop Date/Time Anesthesia Stop Date: 11/19/22 Anesthesia Stop Time: 08:28 Summary Extremes of Age - Over 70 or under 1: MDA
[2022-11-19] MEDS: TETRACAINE 0.5% OPHTH 2 DROP EYE-RIGHT (07:55)
[2022-11-19] MEDS: BALANCED SALT IRRIG SOLN 15 ML EYE-RIGHT (07:55)
--- NOTE | 2022-11-19 07:57 | W.ANESCHARGE ---
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
--- NOTE | 2022-11-19 08:11 | SUR.PREOP ---
The eye drops brought by the patient (Ketorolac and Prednisolone) are examined and I have determined they are labeled by the patient's pharmacy for this patient as prescribed by the surgeon. The bottles are intact, recently obtained and appear to be correct. Paulie RUDD
[2022-11-19 08:26] VITALS: BP 158/82; PULSE 85; RESP 16; TEMP 36.4; O2SAT 96
--- NOTE | 2022-11-19 09:12 | P.OPTPRC_ITS ---
Procedure Note Date of procedure: 11/19/22 Will [facility] bill your pro fee for this procedure?: Yes Procedure Description: SURGEON: Ina Villalpando MD PREOPERATIVE DIAGNOSIS: Mature cataract, right eye. POSTOPERATIVE DIAGNOSIS: Mature cataract, right eye. NAME OF OPERATION: Phacoemulsification of cataract with posterior chamber intraocular lens implantation in the right eye. ANESTHESIA: Topical. ESTIMATED BLOOD LOSS: Less than 2 cc. COMPLICATIONS: None. PATHOLOGY SPECIMEN: None. INDICATIONS: See consult note for details. The risks, benefits and alternatives of the procedure were explained to the patient, who elected to proceed and signed informed consent to do so. PROCEDURE: The patient was brought to the pre-holding area where the right eye was identified as the operative eye. I placed my initials above this eye. The patient received eye drops consisting of 0.5% tetracaine, 1% tropicamide, 10% phenylephrine, and 0.5% ketorolac. The patient was then brought to the operating room where the right eye was again identified as the operative eye. The eye was prepped with Betadine and draped in the usual sterile ophthalmic fashion. A #15 super-sharp blade was used to create a paracentesis site. 1% non-preserved intracameral lidocaine was injected into the anterior chamber. Endocoat was injected into the anterior chamber. A 2.4 mm keratome was used to create a three-plane self-sealing incision 1 mm anterior to the temporal limbus. A cystotome was used to create an anterior capsular leaflet. The Utrata forceps were used to extend this to form a continuous curvilinear capsulorrhexis. Hydrodissection was performed. The cataract was removed with phacoemulsification using the [id number] technique. The irrigation and aspiration tip was used to remove the remaining cortex. Healon was injected into the capsular bag. An OJ ZCB00 intraocular lens of 20.5 diopters was injected into the capsular bag. The irrigation and aspiration tip was used to remove the remaining viscoelastic. Balanced salt solution on a cannula was used to hydrate the wound, and the wound was found to be watertight. The pupil was noted to be round. DISPOSITION: The patient was taken to the recovery room and discharged to home in stable condition. The patient was instructed to call me or go to the emergency department with any sudden change, including dramatic loss of vision, severe pain in the eye or eyebrow region, nausea, or vomiting. The patient will follow up in the clinic tomorrow morning.
== END 2022-11-19 09:04 | disposition home or self-care (01) ==
PROVIDERS: PCP Physician Assistant Medical; Visit Provider Ophthalmology
PROC: (CPT 66984; principal; 2022-11-19 06:45)
DX: H25.89 Other age-related cataract (principal)
CPT/HCPCS: 66984; 00142; 99100; A9270; J2250; J3010; V2632

== ENCOUNTER 2022-12-03 06:45 | Day surgery (SDC) | payer MEDICARE, BC, SELFPAY ==
[2022-12-03] MEDS: KETOROLAC OPHTH 0.5% 1 DROP EYE-LEFT ×3 (07:00→07:10)
[2022-12-03] MEDS: TETRACAINE 0.5% OPHTH 1 DROP EYE-LEFT ×2 (07:00→07:05)
[2022-12-03 07:01] VITALS: BP 141/75; PULSE 79; RESP 16; TEMP 36.5; O2SAT 97; BMI 26.6
--- NOTE | 2022-12-03 07:10 | SUR.PREOP ---
The eye drops brought by the patient (Ketorolac, Olaxacin and Prednisolone) are examined and I have determined they are labeled by the patient's pharmacy for this patient as prescribed by the surgeon. The bottles are intact, recently obtained and appear to be correct.
[2022-12-03] MEDS: SODIUM CHLORIDE 0.9 % (FLUSH) 10 ML SYRINGE IVF (07:31)
--- NOTE | 2022-12-03 07:49 | W.ANESCHARGE ---
Anesthesia Charges Start Date/Time Anesthesia Start Date: 12/03/22 Anesthesia Start Time: 07:52 Stop Date/Time Anesthesia Stop Date: 12/03/22 Anesthesia Stop Time: 08:25 Summary Extremes of Age - Over 70 or under 1: MDA
[2022-12-03] MEDS: TETRACAINE 0.5% OPHTH 2 DROP EYE-LEFT (07:55)
[2022-12-03] MEDS: BALANCED SALT IRRIG SOLN 15 ML EYE-LEFT (07:59)
--- NOTE | 2022-12-03 08:01 | W.ANESCHARGE ---
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
[2022-12-03 08:22] VITALS: BP 162/81; PULSE 84; RESP 16; TEMP 36.7; O2SAT 95
--- NOTE | 2022-12-03 08:27 | W.PM.OPTPROC ---
Procedure Note Date of procedure: 12/03/22 Will [facility] bill your pro fee for this procedure?: Yes Procedure Description: SURGEON: Ina Villalpando MD PREOPERATIVE DIAGNOSIS: Nuclear sclerotic cataract, left eye. POSTOPERATIVE DIAGNOSIS: Nuclear sclerotic cataract, left eye. NAME OF OPERATION: Phacoemulsification of cataract with posterior chamber intraocular lens implantation in the left eye. ANESTHESIA: Topical. ESTIMATED BLOOD LOSS: Less than 2 cc. COMPLICATIONS: None. PATHOLOGY SPECIMEN: None. INDICATIONS: See consult note for details. The risks, benefits and alternatives of the procedure were explained to the patient, who elected to proceed and signed informed consent to do so. PROCEDURE: The patient was brought to the pre-holding area where the left eye was identified as the operative eye. I placed my initials above this eye. The patient received eye drops consisting of 0.5% tetracaine, 1% tropicamide, 10% phenylephrine, and 0.5% ketorolac. The patient was then brought to the operating room where the left eye was again identified as the operative eye. The eye was prepped with Betadine and draped in the usual sterile ophthalmic fashion. A #15 super-sharp blade was used to create a paracentesis site. 1% non-preserved intracameral lidocaine was injected into the anterior chamber. Endocoat was injected into the anterior chamber. A 2.4 mm keratome was used to create a three-plane self-sealing incision 1 mm anterior to the temporal limbus. A cystotome was used to create an anterior capsular leaflet. The Utrata forceps were used to extend this to form a continuous curvilinear capsulorrhexis. Hydrodissection was performed. The cataract was removed with phacoemulsification using the [id number] technique. The irrigation and aspiration tip was used to remove the remaining cortex. Healon was injected into the capsular bag. An OJ ZCB00 intraocular lens of 20.5 diopters was injected into the capsular bag. The irrigation and aspiration tip was used to remove the remaining viscoelastic. Balanced salt solution on a cannula was used to hydrate the wound, and the wound was found to be watertight. The pupil was noted to be round. DISPOSITION: The patient was taken to the recovery room and discharged to home in stable condition. The patient was instructed to call me or go to the emergency department with any sudden change, including dramatic loss of vision, severe pain in the eye or eyebrow region, nausea, or vomiting. The patient will follow up in the clinic tomorrow morning.
== END 2022-12-03 08:47 | disposition home or self-care (01) ==
PROVIDERS: PCP Physician Assistant Medical; Visit Provider Ophthalmology
PROC: (CPT 66984; principal; 2022-12-03 06:45)
DX: H25.12 Age-related nuclear cataract, left eye (principal)
CPT/HCPCS: 66984; 00142; 99100; A9270; J2250; J3010; V2632

== ENCOUNTER 2023-04-07 06:53 | Day surgery (SDC) | payer MEDICARE, BC, SELFPAY ==
[2023-04-07] MEDS: LACTATED RINGERS 1000 ML 1,000 ML 100 ML IV (07:25)
[2023-04-07 07:55] VITALS: BP 143/77; PULSE 76; RESP 16; TEMP 36.7; O2SAT 95
[2023-04-07] MEDS: SODIUM CHLORIDE 0.9 % (FLUSH) 10 ML SYRINGE IVF (07:59)
--- NOTE | 2023-04-07 08:40 | W.PM.H&PU ---
History & Physical Update History & Physical Update H&P Reviewed and patient assessed: No changes noted
--- NOTE | 2023-04-07 08:40 | PM.GSPRC ---
Operative Note Pre-op diagnosis: 1. Left lower leg squamous cell carcinoma. Post-op diagnosis: Same Type of Procedure: 1. Excision of left lower anterior leg squamous cell carcinoma with complex incisional closure. Indications: 87-year-old female was seen in clinic for evaluation of a new left lower leg lesion over her rocha. Patient states that she noticed this lesion about 3 weeks ago. She feels that the lesion has increased in size. This was biopsied in clinic and pathology returned as well-differentiated squamous cell carcinoma. On clinical exam over the left lower mid anterior rocha there was a raised lesion measuring approximately 9 mm in diameter. There was no evidence of ulceration. The skin laxity of the lower leg is limited. Given patient's biopsy diagnosis and location of the lesion, excision of this lesion in the operating room was recommended. The procedure was discussed in detail. The risks associated procedure including infection, bleeding, and recurrence were all discussed with the patient, and she agreed to proceed. Procedure Description: After discussing the risks and benefits of the procedure, the patient signed informed consent.? The operative site was marked and the patient was brought to the operating room and placed on the operating table in supine position.? Care was taken to pad the patient's pressure points.?? The patient was then sedated by anesthesia.?? The operative site was then prepped and draped in the usual sterile fashion.? A time-out was then performed. Negative margins were marked medially and laterally in the left lower leg. The incision was marked with a marking pen. Local anesthetic was injected at the surgical site. A vertical elliptical skin incision was made with a scalpel excising the 1.3 cm in diameter squamous cell carcinoma with 0.3 cm medial and 0.3 cm lateral margins. Subcutaneous fat was dissected with cautery until ellipse of skin was excised. It was marked with a single stitch superior and double lateral and sent to pathology for frozen section. The excised ellipse of skin was measuring 15 x 2 cm. Pathologist confirmed that the margins were negative. Lateral and medial skin flaps were then created with cautery. Additional local anesthetic was injected at the surgical site. The incision was then closed in layers with interrupted 2-0 and 3-0 Vicryl sutures. The length of the incision was 15 cm. Steri-Strips and sterile pressure dressings were placed over the incision. The left lower leg was then wrapped in an Ryan wrap. ? The patient was then woken and transported to the recovery area in stable condition. ? The patient tolerated the procedure well. Anesthesia: MAC and local Surgeon: Estrella Ambrosio MD Estimated blood loss (mL): 5 Additional Specimen Information: 1. Left lower anterior leg squamous cell carcinoma. Condition: stable Disposition: same day Date of procedure: 04/07/23
--- NOTE | 2023-04-07 08:53 | W.ANESCHARGE ---
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
[2023-04-07] MEDS: CEFAZOLIN 2 GM INJ IVP (08:57)
[2023-04-07 09:47] VITALS: BP 142/84; PULSE 76; RESP 16; TEMP 36.4; O2SAT 100
[2023-04-07 10:00] VITALS: BP 132/77; PULSE 74; RESP 16; O2SAT 100
--- NOTE | 2023-04-07 10:39 | W.ANESCHARGE ---
Anesthesia Charges Start Date/Time Anesthesia Start Date: 04/07/23 Anesthesia Start Time: 08:41 Stop Date/Time Anesthesia Stop Date: 04/07/23 Anesthesia Stop Time: 09:43 Summary Extremes of Age - Over 70 or under 1: MDA
== END 2023-04-07 10:14 | disposition home or self-care (01) ==
PROVIDERS: PCP Physician Assistant Medical; Visit Provider Surgery
PROC: (CPT 11602; principal; 2023-04-07 08:45)
DX: C44.729 Squamous cell carcinoma of skin of left lower limb, including hip (principal)
CPT/HCPCS: 11602; 12035; 00400; 99100; J0690; J2704; J3010; J7120

== ENCOUNTER 2024-01-01 16:46 | Emergency (ER) | payer MEDICARE, BC, SELFPAY ==
[2024-01-01 16:49] VITALS: BP 161/97; PULSE 94; RESP 18; TEMP 36.3; O2SAT 96; BMI 27.4
--- NOTE | 2024-01-01 17:04 | ED_ITS ---
HPI - General Adult General Chief complaint: Hypertension Stated complaint: high blood pressure, difficulty swallowing Time Seen by Provider: 01/01/24 16:56 Source: patient Mode of arrival: ambulatory Limitations: no limitations History of Present Illness HPI narrative: A 8-year-old female coming in today concerned about a few things. 1. Elevated blood pressure. Patient takes her blood pressure is fairly regularly and they are usually very well controlled. She takes home certain a and torsemide. She states that she took her blood pressure today and it was elevated in the 170 systolic which is very unusual for her. She denies any chest pain, shortness of breath, weakness or lethargy. She denies headaches or blurry vision. No ringing in her ears. No changes in her appetite. Her 2nd issue she is con cerned about is she believes that the gabapentin she started taking 20 days ago was giving her side effects. She is taking 300 mg daily for what sounds like back pain. She states that it is not really doing anything for her back. She was also told would help her sleep, is not helping her sleep. At this point she would like to stop taking it and she read in her instructions that you need a doctor's permission to stop taking it. Lastly, she had an episode this morning she was trying to swallow the gabapentin and she kind of choked on it momentarily. She was able to finally get it down. She has been eating and drinking without difficulty since. Again no coughing or shortness of breath. Related Data Home Medications ?Medication ?Instructions ?Recorded ?Confirmed simvastatin 20 mg tablet 20 mg PO HS 01/13/22 01/01/24 calcium carbonate 600 mg-vitamin 1 tab PO BID 01/14/22 01/01/24 D3 20 mcg (800 unit) tablet (Caltrate with Vitamin D3) polyethylene glycol 3350 17 17 g PO DAILY PRN 01/14/22 01/01/24 gram/dose oral powder (Miralax) olmesartan 20 mg tablet 20 mg PO DAILY 11/02/22 01/01/24 gabapentin 300 mg capsule 300 mg PO DAILY 01/01/24 01/01/24 Previous Rx's ?Medication ?Instructions ?Recorded potassium chloride 10 mEq 30 meq (3 x 10 mEq) PO BIDWM #180 01/15/22 capsule,extended release caps torsemide 10 mg tablet 10 mg PO DAILY #30 tabs 01/15/22 hydrocodone 5 mg-acetaminophen 325 1 tab PO Q6H PRN pain #7 tabs 04/07/23 mg tablet Allergies Allergy/AdvReac Type Severity Reaction Status Date / Time aluminum [From Drysol] Allergy Severe Blister Verified 01/01/24 16:54 lisinopril Allergy Mild Verified 01/01/24 16:54 losartan Allergy Verified 01/01/24 16:54 Penicillins Allergy Verified 01/01/24 16:54 sertraline [From Zoloft] Allergy Verified 01/01/24 16:54 Review of Systems Status of ROS: Reports: 10 or more systems reviewed and unremarkable except as noted in History and below [facility] Medical History Major depressive disorder, single episode, mild ?F32.0 - Major depressive disorder, single episode, mild (ICD-10) Sensorineural hearing loss, bilateral ?H90.3 - Sensorineural hearing loss, bilateral (ICD-10) Hyperlipidemia, unspecified ?E78.5 - Hyperlipidemia, unspecified (ICD-10) Osteoarthritis of right knee ?M17.11 - Unilateral primary osteoarthritis, right knee (ICD-10) Hypokalemia ?E87.6 - Hypokalemia (ICD-10) Anxiety ?F41.9 - Anxiety disorder, unspecified (ICD-10) Squamous cell carcinoma in situ ?D09.9 - Carcinoma in situ, unspecified (ICD-10) Cholesteatoma ?H71.90 - Unspecified cholesteatoma, unspecified ear (ICD-10) HTN (hypertension) ?I10 - Essential (primary) hypertension (ICD-10) Osteopenia ?M85.80 - Other specified disorders of bone density and structure, unspecified site (ICD-10) Surgical History History of hysterectomy ?Z90.710 - Acquired absence of both cervix and uterus (ICD-10) Family History Mother High blood pressure Social History Narrative: She lives at [address] [place] [address], independent apartments. She reports generally this is going well for her. She was a few years ago and does find that sometimes his heart being alone. 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 Her son Danny is healthcare power of commonwealth attorney. Code status is full. Highest level of school completed/degree received: some college, no degree Smoking Status: Never smoker Do you use any of these nicotine containing products: None Second hand tobacco smoke exposure: No How often do you have a drink containing alcohol: 2-3 times a week How many standard drinks containing alcohol do you have on a typical day: 1 or 2 How often do you have six or more drinks on one occasion: Never AUDIT-C Alcohol total score: 3 Non-prescribed substance use: denies use Caffeine: Yes (2-3 cups of coffee) Are you using contraception or practicing any form of control: No service: No Exam Narrative: Exam Narrative: Well-nourished well-developed patient in no acute distress. Alert and oriented. Answers questions appropriately. Mood and affect are appropriate. Thoughts are goal oriented and rational. No tangential or magical thinking noted. Patient speaks in full sentences without needing to catch her breath. HEENT: Normocephalic atraumatic. Pupils are equally round reactive to light. Extraocular muscles are intact. Conjunctivae are moist without any icterus not ed. Moist mucous membranes. Cardiovascular: Heart is regular rate and rhythm . Lungs: Clear to auscultation bilaterally no wheezes rhonchi or rales are appreciated. Patient takes deep breaths without any discomfort. Skin: Well perfused. Const: Vital Signs, click to edit/add: Vital Signs - 24 hr 01/01/24 16:49 Temperature 97.3 F L Pulse Rate [Right Pulse Oximeter] 94 Respiratory Rate 18 Blood Pressure [Ri ght Upper Arm] 161/97 H Pulse Oximetry 96 Oxygen Delivery Me thod Room Air Course Vital Signs Vital signs: Initial Vital Signs Temperature 97.3 F L 01/01/24 16:49 Temperature Source Temporal Artery Scan 01/01/24 16:49 Pulse Rate 94 01/01/24 16:49 Pulse Rhythm Regular 01/01/24 16:49 Respiratory Rate 18 01/01/24 16:49 Blood Pressure 161/97 H 01/01/24 16:49 Blood Pressure Mean 118 H 01/01/24 16:49 Blood Pressure Position Sitting 01/01/24 16:49 Pulse Oximetry 96 01/01/24 16:49 Oxygen Delivery Method Room Air 01/01/24 16:49 Vital Signs Temperature 97.3 F L 01/01/24 16:49 Pulse Rate 94 01/01/24 16:49 Respiratory Rate 18 01/01/24 16:49 Blood Pressure 161/97 H 01/01/24 16:49 Pulse Oximetry 96 01/01/24 16:49 Oxygen Delivery Method Room Air 01/01/24 16:49 Temperature 97.3 F L 01/01/24 16:49 Pulse Rate 94 01/01/24 16:49 Respiratory Rate 18 01/01/24 16:49 Blood Pressure 161/97 H 01/01/24 16:49 Pulse Oximetry 96 01/01/24 16:49 Oxygen Delivery Method Room Air 01/01/24 16:49 Medical Decision Making MDM Narrative Medical decision making narrative: 88-year-old female with the followin. Hypertension no changes at this time. We discussed multiple causes of elevated blood pressures. This is just 1 day that her blood pressures have been elevated. Would follow up as needed with her primary doctor. 2. Gabapentin dosing. We discussed that she is on a low-dose she can try increasing the instead to see if it will help with her pain, patient states she wished not to do that wants to stop it instead. 3. Difficulty swallowing pills time 1 this morning without any residual symptoms. Patient reassured. Discharge Plan Discharge Clinical Impression: Hypertension Patient Disposition: Home, Self-Care Condition: Stable Additional Instructions: Would not be concerned about elevated blood pressure readings today. Would not recommend increasing the frequency which you check your blood pressures. However, they continue to be elevated I would follow-up with your primary care provider. Okay to stop the gabapentin, but let Dr. Lopze know. Return to the ER if you develop weakness, vomiting, or severe headache. Prescriptions: No Action simvastatin 20 mg tablet 20 mg PO HS calcium carbonate-vitamin D3 [Caltrate with Vitamin D3] 600 mg-20 mcg (800 unit) tablet 1 tab PO BID polyethylene glycol 3350 [Miralax] 17 gram/dose powder 17 g PO DAILY PRN potassium chloride 10 mEq Capsule, Extended Release 30 meq PO BIDWM Qty: 180 0RF torsemide 10 mg tablet 10 mg PO DAILY Qty: 30 2RF olmesartan 20 mg tablet 20 mg PO DAILY hydrocodone-acetaminophen 5-325 mg tablet 1 tab PO Q6H PRN (Reason: pain) Qty: 7 0RF gabapentin 300 mg capsule 300 mg PO DAILY Follow Up/Referrals: Clover Rice PA-C [Primary Care Provider] - Stand Alone Forms: MyHealth Info Instructions
--- OUTSIDE RECORDS SUMMARY | 2024-01-01 17:15 | XMS_ITS | Clinical Summary ---
Author Organization [facility] Address [place], [place] [address] Care Team Providers Care Retail Account Specialist Name Role Phone Ofelia Mina MD Unavailable [phone] Cori Castellon Unavailable Unavailab Clover Blackmon Primary Care Provider Allergies Active Allergy Reactions Criticality Noted Date Comments Aluminum Chloride Rash 12/22/2022 Lisinopril Cough 07/21/2019 Losartan Rash 10/14/2021 Penicillins Rash 03/19/2007 Sertraline Diarrhea 02/18/2022 Electrolyte imbalance due to diarrhea Medications Medication Sig Dispensed Refills Start Date End Date Status CALTRATE PLUS 600 MG-400 UNIT TAB twice daily 0 04/20/2009 Active clotrimazole (LOTRIMIN) 1 % creamIndications:Tin ea corporis Apply topically to affected area(s) 2 times daily. 30 g 07/10/2021 Active glycerin suppository Insert 1 Suppository (1 g) rectally once daily if needed for Constipation. 0 11/22/2021 Active polyethylene glycoL (MIRALAX) 17 gram/scoop powder Mix in liquid then take by mouth. 01/14/2022 Active torsemide (DEMADEX) 10 mg tabletIndications:Es sential hypertension,Ankle edema, bilateral Take 1 Tablet (10 mg) by mouth once daily. 90 Tablet 3 05/27/2023 Active olmesartan (BENICAR) 20 mg tabletIndications:Es sential hypertension Take 1 Tablet (20 mg) by mouth once daily. 90 Tablet 3 09/04/2023 Active simvastatin (ZOCOR) 20 mg tabletIndications:Mi xed hyperlipidemia Take 1 Tablet (20 mg) by mouth at bedtime. 90 Tablet 3 09/04/2023 Active potassium chloride (MICRO-K) 10 mEq Controlled-release capsuleIndications:E ssential hypertension Take 3 Capsules (30 mEq) by mouth two times daily with meals. 540 Capsule 3 09/04/2023 Active gabapentin (NEURONTIN) 300 mg capsuleIndications:L umbar radiculopathy Take 1 Capsule (300 mg) by mouth at bedtime. 30 Capsule 3 12/09/2023 Active Active Problems Problem Noted Date Diagnosed Date SCC (spinal cord compression) 09/04/2023 Depression, major, single episode, mild 06/30/19 23 Left leg pain 03/19/2022 Overview: ~ February 2022: L4-L5 [place] epidural steroid injection by Dr. Miller. Primary osteoarthritis of right knee 08/07/2021 Overview: July 2021: Dr. Young did cortisone injection to right knee. At 2 weeks, is 100% pain relief per [facility] Message. Muscle cramps 10/01/2020 Hypokalemia 07/21/2019 Anxiety 10/12/2015 Routine general medical exam ination at a health care facility 07/28/2014 Overview: Colonoscopy 2011. No need for further testing. Squamous cell carcinoma in situ 04/18/2014 Overview: Calf. 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 Discussed and will not repeat test. Diana Kay M.D. 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 07/20/2012 Pelvic mass 05/30/2011 07/20/2012 Encounters Date Type Department Care Team Description 01/01/2024 Nurse Triage [facility] [address] [facility] [place] [address] Clover Rice PA Throat Problem; High Blood Pressure 01/01/2024 Telephone [facility] [address] [facility] [place] [address] Clover Rice PA Questions (COVID-19 QUESTIONS ) 01/01/[address] [address] Clover Rice PA Refill Request (Triamcinolone) 12/31/2023 11:45 AM CDT Ancillary Procedure [address] [place] [address] Arrived 12/31/2023 Travel 12/28/2023 Travel 12/09/2023 9:40 AM CDT Office Visit [address] [address] Werner Miller MD Musculoskeletal Problem (Follow up back and knee pain) 12/09/2023 Travel 12/06/2023 Travel 12/02/2023 Nurse Triage [address] [address] Clover Rice PA Questions 10/07/2023 1:30 PM CDT Orders Only [address] [address] [facility], [place] [facility] 10/07/2023 Travel from Last 3 Months Immunizations Name Administration Dates Next Due AMB INFLUENZA IIV3 (AGE 65+ YRS) PF (Flu Clinic Only) 03/08/2019 AMB Influenza, IIV3 (Age >=3 years)(Flu Clinic Only) 03/05/2012 Amb Influenza, Inact (High-d ose) (Flu Clinic Only) 03/02/2015,02/28/2014 Amb Influenza, Inactivated A IIV4 (Age 65+ Years) Preserv Free 02/09/2020 COVID-19 Vaccine Spikevax (M oderna 50mcg/0.5mL) 12YO+ 6617-1504 Formula PF 02/18/2023 COVID-19 vaccine (Moderna 50mcg/0.5mL) 12YO+ BIVALENT PF, MDV 02/10/2022 COVID-19 vaccine (Pfizer-Bio NTech 30mcg/0.3mL) PF, MDV 02/15/2021,07/14/2020,06/23/2020 Influenza, High-dose Inactivated 03/28/2016,100 01/2015,02/28/2014 Influenza, IIV3 (Age 6-35 mos) 04/20/2009 Influenza, IIV3 (Age >=3 years) 03/08/20 13,03/05/2012,05/30/2011,2009,04/20/2009,03/24/2008,03/19/2007,1 06/22/2005,04/12/2005,03/14/2004, 003 Influenza, Inactivated AIIV4 (Age 65+ Years) Preserv Free 03/06/2023,02/18/2022,03/06/2021 Influenza, Inactivated IIV3 (Age 65+ Years) Preserv Free 01/20/2018,03/19/2017 Pneumococcal Poly,23-Valent (Pneumovax) 12/05/2003 Pneumococcal conj 13-Valent (Prevnar 13) 07/28/2014 Td (Age >=7 Years) 01/28/2006 Tdap 06/04/2012 Zoster (Shingrix-RZV, recombinant) 12/11/2020,,05/30/2020 Zoster (Zostavax-ZVL, live) 05/30/2011 Family History Medical History Relation Name Comments Hypertension Mother Other Mother bowel obstructi on Psychiatric illness Mother Relation Name Status Comments Father (Age 55) cirrosis o f Liver Mother (Age 61) post surgi ariel complications Social History Tobacco Use Types Packs/Day Years Used Date Smoking Tobacco: Never Smokeless Tobacco: Never Tobacco Cessation:Counseling Given: Yes Alcohol Use Standard Drinks/Week Comments Yes 5 (1 standard drink = 0.6 oz pur e alcohol) PHQ-2 Answer Date Recorded PHQ-2 TOTAL SCORE 0 09/04/2023 Social Connections Answer Date Recorded Frequency of Communication with Friends and Fami ly Not on file 12/24/2023 Financial Resource Strain Answer Date R ecorded Difficulty of Paying Living Expenses 3 12/22/2022 Difficulty of Paying Living Expenses Not on file 12/22/2022 Food Insecurity Answer Date Recorded Worried About Running Out of Food in the Last Ye ar 1 12/22/2022 Transportation Needs Answer Date Record ed Lack of Transportation (Medical) 1 12/22/2022 Housing Stability Answer Date Recorded Unable to Pay for Housing in the Last Year 1 12/22/2022 Sex and Gender Information Value Date Recorded Sex Assigned at Not on file Gender Identity Not on file Sexual Orientation Not on file Obstetrics History Last Filed Vital Signs Vital Sign Reading Time Taken Comments Blood Pressure 134/87 12/09/2023 9:45 AM CDT Pulse 86 12/09/2023 9:45 AM CDT Temperature 36.5 ??C (97.7 ??F) 12/09/2023 9:45 AM CD T Respiratory Rate 16 05/17/2022 12:12 PM [employer]HE[employer]IR Oxygen Saturation 97% 12/09/2023 9:45 AM CDT Inhaled Oxygen Concentration - - Weight 77.7 kg (171 lb 3.2 oz) 12/09/2023 9:45 A M CDT shoes on Height 167.6 cm (5' 6) 09/04/2023 10:43 AM CDT Body Mass Index 27.63 09/04/2023 10:43 AM CDT Plan of Treatment Health Maintenance Due Date Last Done Comments Tetanus booster 06/04/2022 06/04/2012, 01/28/2006 COVID-19 vaccine series ( season) 2023 02/18/2023, 02/10/2022, 08/28/2021, Additional history exists Influenza for age 65+ 01/24/2024 03/06/2023 , 02/18/2022, 03/06/2021, Additional history exists BMI (ht and wt on same day) for age 18+ 09/03/2024 09/04/2023, 12/22/2022, 09/01/2022, Additional history exists Depression screening for age 12+ 09/03/2024 09/04/2023, 09/12/2022, 09/02/2022, Additional history exists Medicare Wellness for age 65+ 09/04/2024, 09/01/2022, 08/29/2016, Additional history exists Tdap Completed 06/04/2012 Pneumococcal series for age 65+ Completed 5, 12/05/2003 DEXA/DXA scan for age 65+ Completed 08/23/2015, 03/2009 Zoster (shingles) series for age 50+ Completed 12/11/2020, 09/18/2020, 05/30/2020, Additional history exists Procedures Procedure Name Priority Date/Time Associated Diagnosis Comments MR SPINE LUMBAR WO Routine 12/31/2023 12 :12 PM CDT Lumbar radiculopathy Lumbar degenerative disc disease DDD (degenerative disc disease), lumbar HEMOGLOBIN A1C SCREENING Routine 10/07/2023 1:22 PM CDT Elevated glucose XR DXA BONE DENSITY 2 SITES AXIAL Routine 08/23/2015 8:42 AM CDT Osteopenia from Last 3 Months or Most Recently Relevant to Health Maintenance Results * MR SPINE LUMBAR WO (12/31/2023 12:12 PM CDT) Anatomical Region Laterality Modality Spine, LUMBAR SPINE Magnetic Res onance 01/01/2024 12:4 9 PM CDT Narrative 01/01/2024 12:49 PM CDT For Patients: ??As a result of the Century Cures Act, medical imaging exams and procedure reports are released immediately into your electronic medical record. ??You may view this report before your referring provider. ??If you have questions, please contact your health care provider. Indication: Lumbar radiculopathy. Technique: Multisequence multiplanar MRI of the lumbar spine without the use of intravenous contrast. Comparison: MRI lumbar spine dated 12/10/2021. Findings: Stable lumbar curvature to the left with apex at the L2-L3 level. Vertebral body heights are preserved. The conus medullaris terminates normally at the lower L1 level. Multilevel disc desiccation and height loss again most pronounced at L3- L4, where there is edema the opposing endplates likely representing Modic type 1 degenerative signal. T12-L1: No significant spinal canal or neural foraminal stenosis. L1-L2: Shallow symmetric disc bulge. No significant spinal canal or neural foraminal stenosis. L2-L3: No significant spinal canal stenosis. Mild right and no significant left neural foraminal narrowing. L3-L4: Mild posterior endplate osteophytic ridging. Shallow symmetric disc bulge. Mild facet joint hypertrophy. Similar mild spinal canal stenosis and mild- moderate right neural foraminal narrowing. No significant left neural foraminal narrowing. L4-L5: Symmetric disc bulge. Mild facet joint hypertrophy. No significant spinal canal or right neural foraminal narrowing. Similar mild-moderate left neural foraminal narrowing. L5-S1: Symmetric disc bulge. Mild facet joint hypertrophy. No significant spinal canal or right neural foraminal stenosis. Mild left neural foraminal narrowing and prominent far left lateral endplate osteophytic ridging. Impression: 1. Unchanged lumbar curvature to the left with apex at L2-L3. 2. Similar advanced multilevel disc height loss with edema in the opposing endplates at L3-L4 likely reflecting Modic type I degenerative signal. 3. At L3-L4, similar mild spinal canal stenosis and mild-moderate right neural foraminal narrowing. 4. At L4-L5, similar mild-moderate left neural foraminal narrowing. 5. At L5-S1, similar mild left neural foraminal narrowing and prominent far left lateral endplate osteophytic ridging. Dictated by Bhupinder Rowe MD @ 01/01/2024 12:49:05 PM (Electronically Signed) Procedure Note Anthony Rowe MD - 01/01/2024 For Patients: As a result of the Century Cures Act, medical imagingexams and procedure reports are released immediately into your electronicmedical record. You may view this report before your referring provider.If you have questions, please contact your health care provider. Indication: Lumbar radiculopathy. Technique: Multisequence multiplanar MRI of the lumbar spine without the use ofintravenous contrast. Comparison: MRI lumbar spine dated 12/10/2021. Findings: Stable lumbar curvature to the left with apex at the L2-L3 level.Vertebral body heights are preserved. The conus medullaris terminatesnormally at the lower L1 level. Multilevel disc desiccation and heightloss again most pronounced at L3-L4, where there is edema the opposingendplates likely representing Modic type 1 degenerative signal. T12-L1: No significant spinal canal or neural foraminal stenosis. L1-L2: Shallow symmetric disc bulge. No significant spinal canal or neuralforaminal stenosis. L2-L3: No significant spinal canal stenosis. Mild right and no significantleft neural foraminal narrowing. L3-L4: Mild posterior endplate osteophytic ridging. Shallow symmetric discbulge. Mild facet joint hypertrophy. Similar mild spinal canal stenosisand mild-moderate right neural foraminal narrowing. No significant leftneural foraminal narrowing. L4-L5: Symmetric disc bulge. Mild facet joint hypertrophy. No significantspinal canal or right neural foraminal narrowing. Similar mild-moderateleft neural foraminal narrowing. L5-S1: Symmetric disc bulge. Mild facet joint hypertrophy. No significantspinal canal or right neural foraminal stenosis. Mild left neuralforaminal narrowing and prominent far left lateral endplate osteophyticridging. Impression: 1. Unchanged lumbar curvature to the left with apex at L2-L3. 2. Similar advanced multilevel disc height loss with edema in the opposingendplates at L3-L4 likely reflecting Modic type I degenerative signal. 3. At L3-L4, similar mild spinal canal stenosis and mild-moderate rightneural foraminal narrowing. 4. At L4-L5, similar mild-moderate left neural foraminal narrowing. 5. At L5-S1, similar mild left neural foraminal narrowing and prominentfar left lateral endplate osteophytic ridging. Dictated by Bhupinder Rowe MD @ 01/01/2024 12:49:05 PM (Electronically Signed) Werner Miller MD MR * HEMOGLOBIN A1C SCREENING (10/07/2023 1:22 PM CDT) HEMOGLOBIN A1C SCREENING 6.1 <=6.4 % 10/08/2023 7:04 AM CDT [facility] Blood BLOOD SPECIMEN / Unknown Venipuncture / Unknown 10/07/2023 1:22 PM CDT 10/07/2023 1:23 PM CDT Narrative [facility] - 10/08/2023 7:04 AM CDT ? (<5.7%) ?Normal ? (5.7% to 6.4%) ? Indicates prediabetes ? (>=6.5%) ? Confirms diabetes Falsely low levels may be seen with: Recent Transfusion, Recent Significant Blood Loss, Hemolytic Diseases, or Falsely elevated levels may be seen with: Untreated Anemias, Splenectomy Clover PANTOJA [facility] [address] [place] [address], * (ABNORMAL) XR DEXA BONE DENSITY 2 SITES [99299.1] (08/23/2015 8:42 AM CDT) Anatomical Region Laterality Modality Spine, HIPS, HIPL, HIPR Other Narrative 08/28/2015 11:39 AM CDT Please see scanned document for results of this study. Clover PANTOJA DEXA from Last 3 Months or Most Recently Relevant to Health Maintenance Advance Directives Documents on File Type Date Recorded Patient Roll Tester Expl anation Healthcare Directive 09/01/2011 * Full Code (Latest Code Status on File) Date Activated Date Inactivated Comments 07/30/2012 10:09 AM 07/30/2012 5:38 PM * Full Code Date Activated Date Inactivated Comments 08/25/2011 9:55 AM 08/29/2011 1:03 PM * Full Code Date Activated Date Inactivated Comments 08/25/2011 5:50 AM 08/25/2011 9:55 AM Care Teams Retail Account Specialist Relationship Specialty Start Date End Date Clover Rice PA [address] [place] [address] PCP - General Physician Dobby Looms Pegger 01/13/22 Ofelia Mina MD Obstetrics and Gynecology 06/04/12 Cori Castellon [facility] 06/04/12
== END 2024-01-01 17:16 | disposition home or self-care (01) ==
LOC: ED 17:13
PROVIDERS: Emergency Provider Family Medicine; PCP Physician Assistant Medical
DX: I10 Essential (primary) hypertension (principal)
CPT/HCPCS: 99283

== ENCOUNTER 2024-01-13 09:45 | Outpatient (RCR) | payer MEDICARE, BC, SELFPAY | END 2024-05-02 15:55 | disposition home or self-care (01) | PROVIDERS: PCP Physician Assistant Medical; Visit Provider Family Medicine | DX: M51.36 Other intervertebral disc degeneration, lumbar region (principal); M50.30 Other cervical disc degeneration, unspecified cervical region; M21.062 Valgus deformity, not elsewhere classified, left knee; M62.81 Muscle weakness (generalized); M54.50 Low back pain, unspecified; M54.16 Radiculopathy, lumbar region; M17.12 Unilateral primary osteoarthritis, left knee; M17.11 Unilateral primary osteoarthritis, right knee; Z51.89 Encounter for other specified aftercare | CPT/HCPCS: 97110; 97161 ==

== ENCOUNTER 2024-02-16 07:30 | Outpatient (CLI) | payer MEDICARE, BC, SELFPAY ==
--- OUTSIDE RECORDS SUMMARY | 2024-02-16 07:32 | XMS_ITS | Clinical Summary ---
Author Organization [employer] [facility] [employer] [facility] Address [place], [place] [address] Care Team Providers Care Tool Clerk Name Role Phone Ofelia Mina MD Unavailable [phone] Cori Castellon Unavailable Unavailab Clover Blackmon Primary Care Provider Allergies Active Allergy Reactions Criticality Noted Date Comments Aluminum Chloride Rash 12/22/2022 Lisinopril Cough 07/21/2019 Losartan Rash 10/14/2021 Penicillins Rash 03/19/2007 Sertraline Diarrhea 02/18/2022 Electrolyte imbalance due to diarrhea Medications Medication Sig Dispensed Refills Start Date End Date Status CALTRATE PLUS 600 MG-400 UNIT TAB twice daily 0 04/20/2009 Active glycerin suppository Insert 1 Suppository (1 [...] with meals. 540 Capsule 3 09/04/2023 Active triamcinolone 0.5 % ointmentIndications: Skin irritation APPLY TOPICALLY TO THE AFFECTED AREA THREE TIMES DAILY 30 g 1 01/04/2024 Active ubidecarenone (coenzyme Q10) 100 mg tab Take 1 Tablet (100 mg) by mouth once every other day. 01/08/2024 Active Active Problems Problem Noted Date Diagnosed Date SCC (spinal cord compression) 09/04/2023 Depression, major, single episode, mild 06/30/19 23 Left leg pain 03/19/2022 Overview (03/19/2022): ~ February 2022: L4-L5 [place] epidural steroid injection by Dr. Miller. Primary osteoarthritis of right knee 08/07/2021 Overview (08/20/2021): July 2021: Dr. Young did cortisone injection to right knee. At 2 weeks, is 100% pain relief per [employer] Message. Muscle cramps 10/01/2020 Hypokalemia 07/21/2019 Anxiety 10/12/2015 Routine general medical exam ination at a health care facility 07/28/2014 Overview (07/28/2014): Colonoscopy 2011. No need for further testing. 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 Discussed and will not repeat test. Diana Kay M.D. 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 07/20/2012 Pelvic mass 05/30/2011 07/20/2012 Encounters Date Type Department Care Team Description 01/26/2024 Telephone [facility] [place] [address] [place] [address] Werner Miller MD SPINE INJECTIONS ORDERS 01/08/2024 1:50 PM CDT Office Visit [facility] [place] [address] [place] [address] Kristina Torres PA Blood Pressure (BP has been high-feeling 'out of sorts' like 'something is wrong'-recently off Gabapentin-feels like she did when electrolytes were off) 01/08/2024 Travel 01/08/2024 Telephone [facility] [place] [address] [place] [address] Werner Miller MD Results (MRI) 01/08/2024 Telephone [facility] [place] [address] [place] [address] Clover Rice PA General Illness/Other (BLOOD PRESSURE ) 01/06/2024 10:10 AM CDT Office Visit [address] [address] Clover Rice PA ER Follow up (Post ER - hypertension); Concerns (Was put on gabapentin by Angela but started to have side effects - rash- chest heaviness - elevate BP, has been off the medication 5 days now and sx are slowly improving. Wants to discuss) 01/06/2024 Travel 01/01/2024 Nurse Triage [facility] [place] [address] [place] [address] Clover Rice PA Throat Problem; High Blood Pressure 01/01/2024 Telephone [facility] [place] [address] [place] [address] Clover Rice PA Questions (COVID-19 QUESTIONS ) 01/01/[address] [address] Clover Rice PA Refill Request (Triamcinolone) 12/31/2023 11:45 AM CDT Ancillary Procedure [facility] [place] [address] [facility] [address] 12/31/2023 Travel 12/28/2023 Travel 12/09/2023 9:40 AM CDT Office Visit [facility] [place] [address] [place] [address] Werner Miller MD Musculoskeletal Problem (Follow up back and knee pain) 12/09/2023 Travel 12/06/2023 Travel 12/02/2023 Nurse Triage [facility] [place] [address] [facility] [address] Clover Rice PA Questions from Last 3 Months Immunizations Name Administration Dates Next Due AMB INFLUENZA IIV3 (AGE 65+ YRS) PF (Flu Clinic Only) 03/08/2019 AMB Influenza, IIV3 (Age >=3 years)(Flu Clinic Only) 03/05/2012 Amb Influenza, Inact (High-d ose) (Flu Clinic Only) 03/02/2015,02/28/2014 Amb Influenza, Inactivated A IIV4 (Age 65+ Years) Preserv Free 02/09/2020 COVID-19 VACCINE SPIKEVAX (M ODERNA 50MCG/0.5ML) 12YO+ PFS 02/18/2023 COVID-19 vaccine (Moderna 50mcg/0.5mL) 12YO+ BIVALENT PF, MDV 02/10/2022 COVID-19 vaccine (Pfizer-Bio NTech 30mcg/0.3mL) PF, MDV 02/15/2021,07/14/2020,06/23/2020 Influenza, High-dose Inactivated 03/28/2016,1001/2015,02/28/2014 Influenza, IIV3 (Age 6-35 mos) 04/20/2009 Influenza, [...] of Communication with Friends and Fami ly 0 01/06/2024 Financial Resource Strain Answer Date R ecorded Difficulty of Paying Living Expenses 3 01/06/2024 Difficulty of Paying Living Expenses Not on file 01/06/2024 Food Insecurity Answer Date Recorded Worried About Running Out of Food in the Last Ye ar 1 01/06/2024 Transportation Needs Answer Date Record ed Lack of Transportation (Medical) 1 01/06/2024 Housing Stability Answer Date Recorded Unable to Pay for Housing in the Last Year 1 01/06/2024 Sex and Gender Information Value Date Recorded Sex Assigned at Not on file Gender Identity Not on file Sexual Orientation Not on file Obstetrics History Last Filed Vital Signs Vital Sign Reading Time Taken Comments Blood Pressure 154/90 01/08/2024 1:47 PM CDT Pulse 91 01/08/2024 1:47 PM CDT Temperature 36.5 ??C (97.7 ??F) 12/09/2023 9:45 AM CD T Respiratory Rate 16 05/17/2022 12:12 PM 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 Oxygen Saturation 97% 01/08/2024 1:47 PM CDT Inhaled Oxygen Concentration - - Weight 75.8 kg (167 lb) 01/08/2024 1:47 PM CDT Height 167.6 cm (5' 6) 09/04/2023 10:43 AM CDT Body Mass Index 26.95 09/04/2023 10:43 AM CDT Plan of Treatment Upcoming Encounters Date Type Department Care Team (Late st Contact Info) Description 02/16/2024 8:20 AM CDT Office Visit [facility] [place] [facility] [address] [place] [phone] Werner Miller MD [address] [place] [address] Health Maintenance Due Date Last Done Comments RSV vaccine for adults or (1 - 1-dose 60+ series) 1997 Tetanus booster 06/04/2022 06/04/2012, 01/28/2006 COVID-19 vaccine series ( season) 2024 02/18/2023, 02/10/2022, 08/28/2021, Additional history exists Influenza [...] Procedure Name Priority Date/Time Associated Diagnosis Comments CBC WITH AUTO DIFFERENTIAL Routine 01/08/2024 2:37 PM CDT HTN (hypertension) MAGNESIUM Routine 01/08/2024 2:37 PM CDT HTN (hypertension) TSH Routine 01/08/2024 2:37 PM CDT HTN (hypertension) COMP METABOLIC PANEL Routine 01/08/2024 2:37 PM CDT HTN (hypertension) IRON PLUS IRON BINDING CAP Routine 01/08/2024 2:37 PM CDT Anemia of unknown etiology FERRITIN Routine 01/08/2024 2:37 PM CDT Anemia of unknown etiology CBC WITH AUTO DIFFERENTIAL Routine 01/08/2024 2:37 PM CDT HTN (hypertension) MR SPINE LUMBAR WO Routine 12/31/2023 12 :12 PM CDT Lumbar radiculopathy Lumbar degenerative disc disease DDD (degenerative disc disease), lumbar XR DXA BONE DENSITY 2 SITES AXIAL Routine 08/23/2015 8:42 AM CDT Osteopenia from Last 3 Months or Most Recently Relevant to Health Maintenance Results * CBC WITH AUTO DIFFERENTIAL (01/08/2024 2:37 PM CDT) Pathologist [facility] WHITE BLOOD COUNT 7.5 4.5 - 11.0 thou/cu mm 01/08/2024 2:43 PM CDT [facility] RED BLOOD COUNT 5.16 4.00 - 5.20 mil/cu mm 01/08/2024 2:43 PM CDT [facility] HEMOGLOBIN 15.3 12.0 - 16.0 g/dL 01/08/2024 2:43 PM CDT [facility] HEMATOCRIT 44.4 33.0 - 51.0 % 01/08/2024 2:43 PM CDT [facility] MCV 86 80 - 100 fL 01/08/2024 2:43 PM CDT [facility] MCH 29.7 26.0 - 34.0 pg 01/08/2024 2:43 PM CDT [facility] MCHC 34.5 32.0 - 36.0 g/dL 01/08/2024 2:43 PM CDT [facility] RDW 13.1 11.5 - 15.5 % 01/08/2024 2:43 PM CDT [facility] PLATELET COUNT 252 140 - 440 thou/cu mm 01/08/2024 2:43 PM CDT [facility] MPV 11.0 6.5 - 11.0 fL 01/08/2024 2:43 PM CDT [facility] % NEUT 60.8 % 01/08/2024 2:43 PM CDT [facility] % LYMPH 26.7 % 01/08/2024 2:43 PM CDT [facility] % MONO 10.9 % 01/08/2024 2:43 PM CDT [facility] % EOS 1.2 % 01/08/2024 2:43 PM CDT [facility] % BASO 0.4 % 01/08/2024 2:43 PM CDT [facility] ABSOLUTE NEUTROPHILS 4.6 1.7 - 7.0 thou/cu mm 01/08/2024 2:43 PM CDT [facility] ABSOLUTE LYMPHOCYTES 2.0 0.9 - 2.9 thou/cu mm 01/08/2024 2:43 PM CDT [facility] ABSOLUTE MONOCYTES 0.8 <0.9 thou/cu mm 01/08/2024 2:43 PM CDT [facility] ABSOLUTE EOSINOPHILS 0.1 <0.5 thou/cu mm 01/08/2024 2:43 PM CDT [facility] ABSOLUTE BASOPHILS 0.0 <0.3 thou/cu mm 01/08/2024 2:43 PM CDT [facility] Blood BLOOD SPECIMEN / Unknown Venipuncture / Unknown 01/08/2024 2:37 PM CDT 01/08/2024 2:38 PM CDT Kristina PANTOJA HEMATOLOGY Performing Organization Address [facility]/ZIP Co de Phone Number [facility] [address] [place] [address], [place] [phone] * TSH (01/08/2024 2:37 PM CDT) TSH 2.00 0.27 - 4.20 uIU/mL 01/08/2024 10:47 PM CDT [facility] Blood BLOOD SPECIMEN / Unknown Venipuncture / Unknown 01/08/2024 2:37 PM CDT 01/08/2024 2:38 PM CDT Narrative [facility] - 01/08/2024 10:47 PM CDT In Adults, TSH values between 5.00 and 10.00 uIU/ml do not necessarily indicate the presence of Hypothyroidism. Correlation with clinical findings such as presence of goiter and/or Thyroperoxidase (TPO) Antibody may be helpful. For more information please refer to KIMMY 2004; 291: 228-238. Kristina PANTOJA CHEMISTRY Performing Organization Address [facility] Co de Phone Number [facility] [address] [place] [address], [place] * IRON PLUS IRON BINDING CAP (01/08/2024 2:37 PM CDT) IRON 53 37 - 145 ug/dL 01/08/2024 10:47 PM CDT [facility] UIBC (UNSATURATED) 331 112 - 347 ug/dL 01/08/2024 10:47 PM CDT [facility] IRON BINDING CAPACITY 384 250 - 400 ug/dL 01/08/2024 10:47 PM CDT [facility] IRON,% SATURATION 14 14 - 50 % 01/08/2024 10:47 PM CDT [facility] Blood BLOOD SPECIMEN / Unknown Venipuncture / Unknown 01/08/2024 2:37 PM CDT 01/08/2024 2:38 PM CDT Kristina PANTOJA CHEMISTRY Performing Organization Address [facility]/ZIP Co de Phone Number [facility] [address] [place] [address], [place] * MAGNESIUM (01/08/2024 2:37 PM CDT) MAGNESIUM 1.7 1.6 - 2.4 mg/dL 01/08/2024 10:47 PM CDT [facility] Blood BLOOD SPECIMEN / Unknown Venipuncture / Unknown 01/08/2024 2:37 PM CDT 01/08/2024 2:38 PM CDT Kristina PANTOJA CHEMISTRY Performing Organization Address [facility] Co de Phone Number [facility] [address] [place] [address], [place] * (ABNORMAL) FERRITIN (01/08/2024 2:37 PM CDT) FERRITIN 368.0(H) 15.0 - 150.0 ng/mL 01/08/2024 10:47 PM CDT [facility] Blood BLOOD SPECIMEN / Unknown Venipuncture / Unknown 01/08/2024 2:37 PM CDT 01/08/2024 2:38 PM CDT Kristina PANTOJA CHEMISTRY Performing Organization Address [facility] Co de Phone Number [facility] [address] [place] [address], [place] * (ABNORMAL) COMP METABOLIC PANEL (01/08/2024 2:37 PM CDT) SODIUM 136 136 - 145 mmol/L 01/08/2024 10:47 PM CDT [facility] POTASSIUM 4.2 3.5 - 5.1 mmol/L 01/08/2024 10:47 PM CDT [facility] CHLORIDE 96(L) 98 - 107 mmol/L 01/08/2024 10:47 PM T [facility] CO2,TOTAL 26 22 - 29 mmol/L 01/08/2024 10:47 PM T [facility] ANION GAP 14 5 - 18 01/08/2024 10:47 PM T [facility] GLUCOSE 113(H) 70 - 99 mg/dL 01/08/2024 10:47 PM T [facility] CALCIUM 10.3(H) 8.8 - 10.2 mg/dL 01/08/2024 10:47 PM [facility] BUN 10 8 - 23 mg/dL 01/08/2024 10:47 PM [facility] CREATININE 0.92(H) 0.50 - 0.90 mg/dL 01/08/2024 10:47 PM [facility] BUN/CREAT RATIO 11 10 - 20 10:47 PM [facility] eGFR 61(L) >90 mL/min/1.7 3m2 01/08/2024 10:47 PM [facility] Comment:As of 2021, eG FR is calculated by the CKD-EPI creatinine equation without race adjustment. ??eGFR can be influenced by muscle mass, exercise, and diet. ??The reported eGFR is an estimation only and is only applicable if the renal function is stable. ALBUMIN 4.8 4.0 - 4.9 g/dL 01/08/2024 10:47 PM T [facility] PROTEIN,TOTAL 7.6 6.0 - 8.0 g/dL 01/08/2024 10:47 PM [facility] BILIRUBIN,TOTAL 0.4 0.0 - 1.2 mg/dL 01/08/2024 10:47 PM [facility] ALK PHOSPHATASE 76 35 - 104 IU/L 01/08/2024 10:47 PM [facility] ALT (SGPT) 26 10 - 35 IU/L 01/08/2024 10:47 PM CDT [facility] AST (SGOT) 38(H) 10 - 35 IU/L 01/08/2024 10:47 PM CDT [facility] Blood BLOOD SPECIMEN / Unknown Venipuncture / Unknown 01/08/2024 2:37 PM CDT 01/08/2024 2:38 PM CDT Kristina PANTOJA CHEMISTRY [facility] [address] [place] [address], * MR SPINE LUMBAR WO (12/31/2023 12:12 PM CDT) Anatomical Region Laterality Modality Spine, LUMBAR SPINE Magnetic Res onance 01/01/2024 12:4 9 PM CDT Narrative 01/01/2024 12:49 PM CDT For Patients: ??As a result of the Cures Act, medical imaging exams and procedure [...] (Electronically Signed) Werner Miller MD MR * (ABNORMAL) XR DEXA BONE DENSITY 2 SITES [96585.1] (08/23/2015 8:42 AM CDT) Anatomical Region Laterality Modality Spine, HIPS, HIPL, HIPR Other Narrative 08/28/2015 11:39 AM CDT Please see scanned document for results of this study. 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 Expl anation Healthcare Directive 09/01/2011 * Full Code (Latest Code Status on File) Date Activated Date Inactivated Comments 07/30/2012 10:09 AM 07/30/2012 5:38 PM * Full Code Date Activated Date Inactivated Comments 08/25/2011 9:55 AM 08/29/2011 1:03 PM * Full Code Date Activated Date Inactivated Comments 08/25/2011 5:50 AM 08/25/2011 9:55 AM Care Teams Tool Clerk Relationship Specialty Start Date End Date Clover Rice PA [address] [place] [address] PCP - General Physician Operations Dispatcher 01/13/22 Ofelia Mina MD Obstetrics and Gynecology 06/04/12 Cori Castellon [facility] 06/04/12
== END 2024-02-16 07:31 | disposition home or self-care (01) ==
LOC: INJ CL 07:30
PROVIDERS: PCP Physician Assistant Medical; Visit Provider Family Medicine
DX: M54.16 Radiculopathy, lumbar region (principal); M51.36 Other intervertebral disc degeneration, lumbar region
CPT/HCPCS: 62323; J0702; Q9966

== ENCOUNTER 2024-03-09 08:52 | Emergency (ER) | payer MEDICARE, BC, SELFPAY ==
[2024-03-09 09:05] VITALS: BP 176/85; PULSE 98; RESP 18; TEMP 36.4; O2SAT 98; BMI 25.8
--- NOTE | 2024-03-09 09:25 | ED.GENADULT ---
HPI - General Adult General Chief complaint: Diarrhea Stated complaint: Allergic reaction, swollen lips eyes rash Time Seen by Provider: 03/09/24 08:57 History of Present Illness HPI narrative: Leslie is an 88 year white female who presents with her son, she has had some itching about her body, little rash in her chest it got better with topical Benadryl. She also took some oral Benadryl and that seemed to help as well, she has had some left eye redness as well. No fevers, no chest pain, no shortness of breath. She has had some looser stools over the last couple of days, no blood in her stool. No lightheadedness dizziness. Patient is ambulatory without difficulty. No imbalance. She has been generally healthy. She has been on a statin blood pressure medicine for a long period of time. She reports the itching has been whole body but seemed to be the more reddened rash on her chest that is now better. Related Data Home Medications ?Medication ?Instructions ?Recorded ?Confirmed simvastatin 20 mg tablet 20 mg PO HS 01/13/22 03/09/24 calcium 600 mg (as 1 tab PO BID 01/14/22 03/09/24 carbonate)-vitamin D3 20 mcg (800 unit) tablet (Caltrate with Vitamin D3) polyethylene glycol 3350 17 17 g PO DAILY PRN 01/14/22 01/01/24 gram/dose oral powder (Miralax) olmesartan 20 mg tablet 20 mg PO DAILY 11/02/22 03/09/24 Previous Rx's ?Medication ?Instructions ?Recorded potassium chloride 10 mEq 30 meq (3 x 10 mEq) PO BIDWM #180 01/15/22 capsule,extended release caps torsemide 10 mg tablet 10 mg PO DAILY #30 tabs 01/15/22 prednisone 20 mg tablet 20 mg PO BID 3 days #6 tabs 03/09/24 sulfacetamide sodium 10 % eye drops 1 drp ophthalmic (eye) Q4H #15 mL 03/09/24 Allergies Allergy/AdvReac Type Severity Reaction Status Date / Time aluminum [From Drysol] Allergy Severe Blister Verified 02/16/24 08:35 lisinopril Allergy Mild Verified 02/16/24 08:35 losartan Allergy Verified 02/16/24 08:35 Penicillins Allergy Verified 02/16/24 08:35 sertraline [From Zoloft] Allergy Verified 01/01/24 16:54 Review of Systems Status of ROS: Reports: 6 or more systems reviewed and unremarkable except as noted in History and below [facility] Medical History Major depressive disorder, single episode, mild ?F32.0 - Major depressive disorder, single episode, mild (ICD-10) Sensorineural hearing loss, bilateral ?H90.3 - Sensorineural hearing loss, bilateral (ICD-10) Hyperlipidemia, unspecified ?E78.5 - Hyperlipidemia, unspecified (ICD-10) Osteoarthritis of right knee ?M17.11 - Unilateral primary osteoarthritis, right knee (ICD-10) Hypokalemia ?E87.6 - Hypokalemia (ICD-10) Anxiety ?F41.9 - Anxiety disorder, unspecified (ICD-10) Squamous cell carcinoma in situ ?D09.9 - Carcinoma in situ, unspecified (ICD-10) Cholesteatoma ?H71.90 - Unspecified cholesteatoma, unspecified ear (ICD-10) HTN (hypertension) ?I10 - Essential (primary) hypertension (ICD-10) Osteopenia ?M85.80 - Other specified disorders of bone density and structure, unspecified site (ICD-10) Surgical History History of hysterectomy ?Z90.710 - Acquired absence of both cervix and uterus (ICD-10) Family History Mother High blood pressure Social History Narrative: She lives at [address] [place] [address]. She reports generally this is going well for her. She was a few years ago and does find that sometimes his heart being alone. 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 Her son Danny is healthcare power of quality assurance tester. Code status is full. Highest level of school completed/degree received: some college, no degree Smoking Status: Never smoker Do you use any of these nicotine containing products: None Second hand tobacco smoke exposure: No How often do you have a drink containing alcohol: 2-3 times a week How many standard drinks containing alcohol do you have on a typical day: 1 or 2 How often do you have six or more drinks on one occasion: Never AUDIT-C Alcohol total score: 3 Non-prescribed substance use: denies use Caffeine: Yes (2-3 cups of coffee) Are you using contraception or practicing any form of control: No service: No Exam Narrative: Exam Narrative: Objective: The patient is afebrile Blood pressure slightly elevated HEENT shows left eye conjunctivitis No facial asymmetry Mouth clear Chest in skin exam shows some mild faint redness over anterior chest consistent with allergic-type rash. Not urticarial. No raised lesions, no infectious symptoms. Neck is supple Abdomen extremities unremarkable. She denies abdominal pain. Const: Vital Signs, click to edit/add: Vital Signs - 24 hr 03/09/24 09:05 Temperature 97.6 F Pulse Rate [Pulse Oximeter] 98 Respiratory Rate 18 Blood Pressure [Ri ght Upper Arm] 176/85 H Pulse Oximetry 98 Oxygen Delivery Me thod Room Air Course Vital Signs Vital signs: Initial Vital Signs Temperature 97.6 F 03/09/24 09:05 Temperature Source Temporal Artery Scan 03/09/24 09:05 Pulse Rate 98 03/09/24 09:05 Pulse Rhythm Regular 03/09/24 09:05 Respiratory Rate 18 03/09/24 09:05 Blood Pressure 176/85 H 03/09/24 09:05 Blood Pressure Mean 115 H 03/09/24 09:05 Pulse Oximetry 98 03/09/24 09:05 Oxygen Delivery Method Room Air 03/09/24 09:05 Vital Signs Temperature 97.6 F 03/09/24 09:05 Pulse Rate 98 03/09/24 09:05 Respiratory Rate 18 03/09/24 09:05 Blood Pressure 176/85 H 03/09/24 09:05 Pulse Oximetry 98 03/09/24 09:05 Oxygen Delivery Method Room Air 03/09/24 09:05 Temperature 97.6 F 03/09/24 09:05 Pulse Rate 98 03/09/24 09:05 Respiratory Rate 18 03/09/24 09:05 Blood Pressure 176/85 H 03/09/24 09:05 Pulse Oximetry 98 03/09/24 09:05 Oxygen Delivery Method Room Air 03/09/24 09:05 Medications Administered Medications: Generic Name Dose Route Start Last Admin Trade Name Freq PRN Reason Stop Dose Admin Prednisone 20 mg 03/09/24 09:21 03/09/24 09:26 Prednisone 10 Mg Tablet PO 03/09/24 09:22 20 mg ONCE ONE Administration Medical Decision Making [facility] Narrative Medical decision making narrative: [age] white female with left eye redness consistent with conjunctivitis, no foreign body exposure or chemical exposures. I think at this point will try some soon limit ophthalmic solution for her woke fax is sent to [facility]. Also she has symptoms of an allergic type reaction, perhaps even to the viral conjunctivitis. The patient at this point has not had any new exposures to allergens, new medications. She was using some saline I would solution but unlikely to be the issue. I think at this point we can give her a 20 mg prednisone tablet she can continue Benadryl 25 mg b.i.d. for the next couple of days. Will also have her due to prednisone 20 b.i.d. for 3 days. Will give her this to limit drops for her eye. Follow up with primary care as needed. I think some of her loose stool might be related to an allergic type reaction. Would recommend yogurt by mouth. If she continues to have symptoms or problems she should return to the ED otherwise follow-up with primary care as mention. She and her son were comfortable plan. Discharge Plan Discharge Clinical Impression: Conjunctivitis, Allergic reaction Patient Disposition: Home w/ Parent or Adult Condition: Stable Additional Instructions: Light activity, eye drops as prescribed, prednisone 2 times a day for 3 days, may use Benadryl 25 mg twice a day as well for 3 days. Light activity, fluids, return to primary care if not improving the next 2-3 days, return to the ER for worsening or changes. Activity Level: Light activity Discharge Diet: Regular Prescriptions: New sulfacetamide sodium 10 % drops 1 drp ophthalmic (eye) Q4H Qty: 15 0RF Rx Instructions: Apply 1 drop every 4-6 hours to the left eye for 3 days. prednisone 20 mg tablet 20 mg PO BID 3 Days Qty: 6 0RF No Action simvastatin 20 mg tablet 20 mg PO HS calcium carbonate-vitamin D3 [Caltrate with Vitamin D3] 600 mg-20 mcg (800 unit) tablet 1 tab PO BID polyethylene glycol 3350 [Miralax] 17 gram/dose powder 17 g PO DAILY PRN potassium chloride 10 mEq Capsule, Extended Release 30 meq PO BIDWM Qty: 180 0RF torsemide 10 mg tablet 10 mg PO DAILY Qty: 30 2RF olmesartan 20 mg tablet 20 mg PO DAILY Follow Up/Referrals: Clover Rice PA-C [Primary Care Provider] - Stand Alone Forms: MyHealth Info Instructions
[2024-03-09] MEDS: predniSONE 10 MG TABLET 20 MG PO (09:26)
--- OUTSIDE RECORDS SUMMARY | 2024-03-09 09:34 | XMS_ITS | Clinical Summary ---
Author Organization [employer] Address [place], [place] [address] Care Team Providers Care Java Oracle Developer Name Role Phone Ofelia Mina MD Unavailable Cori Castellon Unavailable Unavailab Clover Blackmon Primary [...] 2 weeks, is 100% pain relief per [employer] Message. Muscle cramps 10/01/2020 Hypokalemia 07/21/2019 Anxiety 10/12/2015 Routine general medical exam ination at a health care facility 07/28/2014 Overview (07/28/2014): Colonoscopy 2011. No need for further testing. 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 Discussed and will not repeat test. Diana Kay M.D. 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 07/20/2012 Pelvic mass 05/30/2011 07/20/2012 Encounters Date Type Department Care Team Description 03/08/2024 Nurse Triage [facility] [address] [place] [address] Clover Rice PA Derm Problem; Mouth/Lip Problem (swelling) 02/16/2024 8:20 AM CDT Office Visit [facility] at [facility] [address] [place] [address] Werner Miller MD Procedure (L4-5 ILESI) 01/26/2024 Telephone [facility] [address] [place] [address] Werner Miller MD SPINE INJECTIONS ORDERS 01/08/2024 1:50 PM CDT Office Visit [facility] [address] [place] [address] Kristina Torres PA Blood Pressure (BP has been high-feeling 'out of sorts' like 'something is wrong'-recently off Gabapentin-feels like she did when electrolytes were off) 01/08/2024 Travel 01/08/2024 Telephone [facility] [address] [place] [address] Werner Miller MD Results (MRI) 01/08/2024 Telephone [facility] [address] [place] [address] Clover Rice PA General Illness/Other (BLOOD PRESSURE ) 01/06/2024 10:10 AM CDT Office Visit [facility] [address] [place] [address] Clover Rice PA ER Follow up (Post ER - hypertension); Concerns (Was put on gabapentin by Angela but started to have side effects - rash- chest heaviness - elevate BP, has been off the medication 5 days now and sx are slowly improving. Wants to discuss) 01/06/2024 Travel 01/01/2024 Nurse Triage [facility] [address] [facility] [place] [address] Clover Rice PA Throat Problem; High Blood Pressure 01/01/2024 Telephone [facility] [address] [facility] [place] [address] Clover Rice PA Questions (COVID-19 QUESTIONS ) 01/01/2024 Refill [facility] [address] [facility] [place] [address] Clover Rice PA Refill Request (Triamcinolone) 12/31/2023 11:45 AM CDT Ancillary Procedure [facility] [address] [place] [address] 12/31/2023 Travel 12/28/2023 Travel 12/09/2023 9:40 AM CDT Office Visit [facility] [address] [facility] [place] [address] Werner Miller MD Musculoskeletal Problem (Follow up back and knee pain) 12/09/2023 Travel from Last 3 Months Immunizations Name [...] 30mcg/0.3mL) PF, MDV 02/15/2021,07/14/2020,06/23/2020 Influenza, High-dose Inactivated 03/28/2016,10/0 01/2015,02/28/2014 Influenza, IIV3 (Age 6-35 mos) 04/20/2009 [...] T Respiratory Rate 16 05/17/2022 12:12 PM PERSONAL CARE HOME ADMINISTRATOR Oxygen Saturation 97% 01/08/2024 1:47 PM CDT Inhaled Oxygen Concentration - - Weight 75.8 kg (167 lb) 01/08/2024 1:47 PM CDT Height 167.6 cm (5' 6) 09/04/2023 10:43 AM CDT Body Mass Index 26.95 09/04/2023 10:43 AM CDT Plan of Treatment Upcoming Encounters Date Type Department Care Team (Late st Contact Info) Description 03/28/2024 9:50 AM PERSONAL CARE HOME ADMINISTRATOR Office Visit [facility] [address] [place] [address] Clover Rice PA [address] [place] [address] Health Maintenance Due Date Last Done Comments RSV vaccine for adults or (1 - 1-dose 75+ series) 2012 Tetanus booster 06/04/2022 06/04/2012, 01/28/2006 Influenza for age 65+ 01/24/2024 03/06/2023 , [...] Completed 12/11/2020, 09/18/2020, 05/30/2020, Additional history exists COVID-19 vaccine series Completed 02/01/20, 02/18/2023, 02/10/2022, Additional history exists Procedures Procedure Name Priority Date/Time Associated Diagnosis Comments AMB EPIDURAL STEROID INJECTION Routine 02/16/2024 12:00 AM CDT Lumbar radiculopathy Lumbar degenerative disc disease CBC WITH AUTO DIFFERENTIAL Routine 01/08/2024 2:37 [...] Recently Relevant to Health Maintenance Results * AMB EPIDURAL STEROID INJECTION (02/16/2024 12:00 AM CDT) Werner Miller MD NEUROLOGY ORD * CBC WITH AUTO DIFFERENTIAL (01/08/2024 2:37 PM CDT) WHITE BLOOD COUNT 7.5 4.5 - 11.0 thou/cu mm 01/08/2024 2:43 PM CDT [facility] RED BLOOD COUNT 5.16 4.00 - 5.20 mil/cu mm 01/08/2024 2:43 PM CDT [facility] HEMOGLOBIN 15.3 12.0 - 16.0 g/dL 01/08/2024 2:43 PM CDT [facility] HEMATOCRIT 44.4 33.0 - 51.0 % 01/08/2024 2:43 PM CDT [facility] MCV 86 80 - 100 fL 01/08/2024 2:43 PM CDT [facility] MCH 29.7 26.0 - 34.0 pg 01/08/2024 2:43 PM CDT [facility] MCHC 34.5 32.0 - 36.0 g/dL 01/08/2024 2:43 PM CDT [facility] RDW 13.1 11.5 - 15.5 % 01/08/2024 2:43 PM CDT [facility] PLATELET COUNT 252 140 - 440 thou/cu mm 01/08/2024 2:43 PM CDT [facility] MPV 11.0 6.5 - 11.0 fL 01/08/2024 2:43 PM CDT [facility] % NEUT 60.8 % 01/08/2024 2:43 PM CDT [facility] % LYMPH 26.7 % 01/08/2024 2:43 PM CDT [facility] % MONO 10.9 % 01/08/2024 2:43 PM CDT [facility] % EOS 1.2 % 01/08/2024 2:43 PM CDT [facility] % BASO 0.4 % 01/08/2024 2:43 PM CDT [facility] ABSOLUTE NEUTROPHILS 4.6 1.7 - 7.0 thou/cu mm 01/08/2024 2:43 PM CDT [facility] ABSOLUTE LYMPHOCYTES 2.0 0.9 - 2.9 thou/cu mm 01/08/2024 2:43 PM CDT [facility] ABSOLUTE MONOCYTES 0.8 <0.9 thou/cu mm 01/08/2024 2:43 PM CDT [facility] ABSOLUTE EOSINOPHILS 0.1 <0.5 thou/cu mm 01/08/2024 2:43 PM CDT [facility] ABSOLUTE BASOPHILS 0.0 <0.3 thou/cu mm 01/08/2024 2:43 PM CDT [facility] Blood BLOOD SPECIMEN / Unknown Venipuncture / Unknown 01/08/2024 2:37 PM CDT 01/08/2024 2:38 PM CDT Kristina PANTOJA HEMATOLOGY Performing Organization Address [facility]/ZIP Co de Phone Number [facility] [address] [place] [address], [place] [phone] * TSH (01/08/2024 2:37 PM CDT) TSH 2.00 0.27 - 4.20 uIU/mL 01/08/2024 10:47 PM CDT [facility] Blood BLOOD SPECIMEN / Unknown Venipuncture / Unknown 01/08/2024 2:37 PM CDT 01/08/2024 2:38 PM CDT Narrative [facility] - 01/08/2024 10:47 PM CDT In Adults, TSH values between 5.00 and 10.00 uIU/ml do not necessarily indicate the presence of Hypothyroidism. Correlation with clinical findings such as presence of goiter and/or Thyroperoxidase (TPO) Antibody may be helpful. For more information please refer to KIMMY 2004; 291: 228-238. Kristina PANTOJA CHEMISTRY [facility] [address] [place] [address], [place] * IRON PLUS IRON BINDING CAP (01/08/2024 2:37 PM CDT) IRON 53 37 - 145 ug/dL 01/08/2024 10:47 PM CDT [facility] UIBC (UNSATURATED) 331 112 - 347 ug/dL 01/08/2024 10:47 PM CDT [facility] IRON BINDING CAPACITY 384 250 - 400 ug/dL 01/08/2024 10:47 PM CDT [facility] IRON,% SATURATION 14 14 - 50 % 01/08/2024 10:47 PM CDT [facility] Blood BLOOD SPECIMEN / Unknown Venipuncture / Unknown 01/08/2024 2:37 PM CDT 01/08/2024 2:38 PM CDT Kristina PANTOJA CHEMISTRY Performing Organization Address City/[facility]/ZIP Co de Phone Number [facility] [address] [place] [address], [place] * MAGNESIUM (01/08/2024 2:37 PM CDT) MAGNESIUM 1.7 1.6 - 2.4 mg/dL 01/08/2024 10:47 PM CDT [facility] Blood BLOOD SPECIMEN / Unknown Venipuncture / Unknown 01/08/2024 2:37 PM CDT 01/08/2024 2:38 PM CDT Kristina PANTOJA CHEMISTRY [facility] [address] [place] [address], [place] * (ABNORMAL) FERRITIN (01/08/2024 2:37 PM CDT) FERRITIN 368.0(H) 15.0 - 150.0 ng/mL 01/08/2024 10:47 PM CDT [facility] Blood BLOOD SPECIMEN / Unknown Venipuncture / Unknown 01/08/2024 2:37 PM CDT 01/08/2024 2:38 PM CDT Kristina PANTOJA CHEMISTRY [facility] [address] [place] [address], * (ABNORMAL) COMP METABOLIC PANEL (01/08/2024 2:37 PM CDT) SODIUM 136 136 - 145 mmol/L 01/08/2024 10:47 PM CDT [facility] POTASSIUM 4.2 3.5 - 5.1 mmol/L 01/08/2024 10:47 PM CDT [facility] CHLORIDE 96(L) 98 - 107 mmol/L 01/08/2024 10:47 PM CDT [facility] CO2,TOTAL 26 22 - 29 mmol/L 01/08/2024 10:47 PM CDT [facility] ANION GAP 14 5 - 18 01/08/2024 10:47 PM CDT [facility] GLUCOSE 113(H) 70 - 99 mg/dL 01/08/2024 10:47 PM CDT [facility] CALCIUM 10.3(H) 8.8 - 10.2 mg/dL 01/08/2024 10:47 PM CDT [facility] BUN 10 8 - 23 mg/dL 01/08/2024 10:47 PM CDT [facility] CREATININE 0.92(H) 0.50 - 0.90 mg/dL 01/08/2024 10:47 PM T [facility] BUN/CREAT RATIO 11 10 - 20 10:47 PM CDT [facility] eGFR 61(L) >90 mL/min/1.7 3m2 01/08/2024 10:47 PM CDT [facility] Comment:As of 2021, eG FR is calculated by the CKD-EPI creatinine equation without race adjustment. ??eGFR can be influenced by muscle mass, exercise, and diet. ??The reported eGFR is an estimation only and is only applicable if the renal function is stable. ALBUMIN 4.8 4.0 - 4.9 g/dL 01/08/2024 10:47 PM CDT [facility] PROTEIN,TOTAL 7.6 6.0 - 8.0 g/dL 01/08/2024 10:47 PM CDT [facility] BILIRUBIN,TOTAL 0.4 0.0 - 1.2 mg/dL 01/08/2024 10:47 PM CDT [facility] ALK PHOSPHATASE 76 35 - 104 IU/L 01/08/2024 10:47 PM CDT [facility] ALT (SGPT) 26 10 - 35 IU/L 01/08/2024 10:47 PM CDT [facility] AST (SGOT) 38(H) 10 - 35 IU/L 01/08/2024 10:47 PM CDT [facility] Blood BLOOD SPECIMEN / Unknown Venipuncture / Unknown 01/08/2024 2:37 PM CDT 01/08/2024 2:38 PM CDT Kristina PANTOJA CHEMISTRY [facility] [address] * MR SPINE LUMBAR WO (12/31/2023 12:12 [...] For Patients: As a result of the 21st Century Cures Act, medical imagingexams and procedure [...] (ABNORMAL) XR DEXA BONE DENSITY 2 SITES [21908.1] (08/23/2015 8:42 AM CDT) Anatomical Region Laterality Modality Spine, HIPS, HIPL, HIPR Other Narrative 08/28/2015 11:39 AM CDT Please see scanned document for results of this study. 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 Healthcare Directive 09/01/2011 * Full Code (Latest Code Status on File) Date Activated Date Inactivated Comments 07/30/2012 10:09 AM 07/30/2012 5:38 PM * Full Code Date Activated Date Inactivated Comments 08/25/2011 9:55 AM 08/29/2011 1:03 PM * Full Code Date Activated Date Inactivated Comments 08/25/2011 5:50 AM 08/25/2011 9:55 AM Care Teams Java Oracle Developer Relationship Specialty Start Date End Date Clover Rice PA [address] [place] [address] PCP - General Physician Art Consultant 01/13/22 Ofelia Mina MD Obstetrics and Gynecology 06/04/12 Cori Castellon [facility] 06/04/12
[2024-03-09 09:52] VITALS: BP 176/85; PULSE 98; RESP 18; TEMP 36.4
== END 2024-03-09 09:50 | disposition home or self-care (01) ==
LOC: ED 09:29
PROVIDERS: Emergency Provider Family Medicine; PCP Physician Assistant Medical
DX: H10.022 Other mucopurulent conjunctivitis, left eye (principal)
CPT/HCPCS: 99283; 99284; J7512

== ENCOUNTER 2024-03-14 11:51 | Inpatient (IN) | payer MEDICARE, BC, SELFPAY ==
[2024-03-14] VITALS (11 sets, daily range): BP systolic 126–201; BP diastolic 58–105; PULSE 79–103; RESP 14–20; TEMP 36.3–37; O2SAT 94–98; BMI 26.6; BMI 27.3
--- NOTE | 2024-03-14 12:14 | ED_ITS ---
HPI - General Adult General Date Seen: 03/14/24 Chief complaint: Diarrhea Stated complaint: High BP, diarrhea, cant eat, feels shaky Time Seen by Provider: 03/14/24 12:04 History of Present Illness HPI narrative: 88-year-old female with a history of hypertension, history of hyponatremia and hypokalemia, arthritis, She was seen in the ER last week on 03/[address] [place]. She had presented with itchiness on her body, rash on her chest, loose stools without bloody stools. She apparently had conjunctivitis and was treated with eyedrops. She was also treated with prednisone 20 mg b.i.d. for 3 days orally and Benadryl orally. Was seen in the ER in December with several concerns. Among them was elevated blood pressure with reports of systolic blood pressure readings 170 at home. More recent past history includes that she has ongoing trouble with low back pain. She was put on gabapentin for that several weeks ago but did not like it because of side effects. She also had a shot into her low back about a month ago done by Dr. Lopez. She says that her back pain has gotten slightly better after that shot. Her current symptoms began perhaps a week or 2 or 3 ago. She notes that she has some chronic poor appetite. Sometime last week or maybe them week before she started having diarrhea. She had liquidy stools and several stools per day. Along with that she had a rash on her arms and legs and trunk as well as some conjunctivitis for her eyes. She was put on prednisone for the rash and drops for her eyes and those symptoms are improved. However she has had ongoing diarrhea since last week and over the weekend. She describes at lease five or 6 loose stools per day and sometimes getting up at night for loose stools. Along with that she has had decrease in her appetite over the past couple of days. She has been trying to make herself drink fluids and eat some food. Since yesterday she has also had nausea. No vomiting yet. She has not noticed any blood or mucus in her stool. No recent antibiotics. She occasionally gets some abdominal cramps but no significant abdominal pain. No flank pain. Related Data Home Medications ?Medication ?Instructions ?Recorded ?Confirmed simvastatin 20 mg tablet 20 mg PO HS 01/13/22 03/14/24 calcium 600 mg (as 1 tab PO BID 01/14/22 03/14/24 carbonate)-vitamin D3 20 mcg (800 unit) tablet (Caltrate with Vitamin D3) polyethylene glycol 3350 17 17 g PO DAILY PRN 01/14/22 03/14/24 gram/dose oral powder (Miralax) olmesartan 20 mg tablet 20 mg PO DAILY 11/02/22 03/14/24 Previous Rx's ?Medication ?Instructions ?Recorded potassium chloride 10 mEq 30 meq (3 x 10 mEq) PO BIDWM #180 01/15/22 capsule,extended release caps torsemide 10 mg tablet 10 mg PO DAILY #30 tabs 01/15/22 prednisone 20 mg tablet 20 mg PO BID 3 days #6 tabs 03/09/24 sulfacetamide sodium 10 % eye drops 1 drp ophthalmic (eye) Q4H #15 mL 03/09/24 Allergies Allergy/AdvReac Type Severity Reaction Status Date / Time aluminum [From Drysol] Allergy Severe Blister Verified 02/16/24 08:35 lisinopril Allergy Mild Verified 02/16/24 08:35 losartan Allergy Verified 02/16/24 08:35 Penicillins Allergy Verified 02/16/24 08:35 sertraline [From Zoloft] Allergy Verified 01/01/24 16:54 [facility] Medical History Major depressive disorder, single episode, mild ?F32.0 - Major depressive disorder, single episode, mild (ICD-10) Sensorineural hearing loss, bilateral ?H90.3 - Sensorineural hearing loss, bilateral (ICD-10) Hyperlipidemia, unspecified ?E78.5 - Hyperlipidemia, unspecified (ICD-10) Osteoarthritis of right knee ?M17.11 - Unilateral primary osteoarthritis, right knee (ICD-10) Hypokalemia ?E87.6 - Hypokalemia (ICD-10) Anxiety ?F41.9 - Anxiety disorder, unspecified (ICD-10) Squamous cell carcinoma in situ ?D09.9 - Carcinoma in situ, unspecified (ICD-10) Cholesteatoma ?H71.90 - Unspecified cholesteatoma, unspecified ear (ICD-10) HTN (hypertension) ?I10 - Essential (primary) hypertension (ICD-10) Osteopenia ?M85.80 - Other specified disorders of bone density and structure, unspecified site (ICD-10) Surgical History History of hysterectomy ?Z90.710 - Acquired absence of both cervix and uterus (ICD-10) Family History Mother High blood pressure Social History Narrative: She lives at [address] [place] [address]. She reports generally this is going well for her. She was a few years ago and does find that sometimes his heart being alone. 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 Her son Danny is healthcare power of finance attorney. Code status is full. What is your current living situation?: I presently have a place to live Problems where you live: no known problems Problems where you live details: none In the past 12 months, utilities in danger of being shut off: no In past 12 months, lack of transportation kept you from medical appts, meetings, work, or getting things needed for daily living: no In the past 12 mos, have been you worried that your food would run out before you had money to buy more?: never true In the past 12 mos, the food you bought just didn't last and you didn't have money to buy more?: never true Highest level of school completed/degree received: some college, no degree Smoking Status: Never smoker Do you use any of these nicotine containing products: None Second hand tobacco smoke exposure: No How often do you have a drink containing alcohol: 2-3 times a week Alcohol type: wine How many standard drinks containing alcohol do you have on a typical day: 1 or 2 How often do you have six or more drinks on one occasion: Never AUDIT-C Alcohol total score: 3 Non-prescribed substance use: denies use Caffeine: Yes (2-3 cups of coffee) How often does anyone, including family, friends and others, physically hurt you : never How often does anyone, including family, friends and others, insult or talk down to you: never How often does anyone, including family, friends and others, threaten you with harm: never How often does anyone, including family, friends and others, scream or curse at you: never Are you using contraception or practicing any form of control: No service: No Exam Narrative: Exam Narrative: Constitutional: Appears well-developed and well-nourished. Alert. Conversant. Non toxic. HENT: Head: Atraumatic. Nose: Nose normal. Mouth/Throat: Oral mucosa is clear . Mucous membranes are dry but not desiccated or cracked.. no trismus. Pharynx normal. Tonsils symmetric. No tonsillar enlargement, erythema, or exudate. Eyes: Conjunctivae normal. EOM normal. Pupils equal, round, and reactive to light. No scleral icterus. Neck: Normal range of motion. Neck supple. No tracheal deviation present. No JVD Cardiovascular: Normal rate, regular rhythm. No gallop. No friction rub. Systolic murmur heard. Symmetric radial artery pulses Pulmonary/Chest: Effort normal. No stridor. No respiratory distress. No wheezes. No rales. No rhonchi . No tenderness. Abdominal: Soft. Bowel sounds normal. No distension. No mass. No tenderness. No rebound. No guarding. No CVA tenderness Musculoskeletal: RUE: Normal range of motion. No tenderness. No deformity LUE: Normal range of motion. No tenderness. No deformity RLE: Normal range of motion. No edema. No tenderness. No deformity LLE: Normal range of motion. No edema. No tenderness. No deformity Neurological: Alert and oriented to person, place, and time. Normal strength. CN II-VII intact. No sensory deficit. GCS eye subscore is 4. GCS verbal subscore is 5. GCS motor subscore is 6. Normal coordination Skin: Skin is warm and dry. No rash noted. No pallor. Normal capillary refill. Psychiatric: Normal mood. Pleasant but mildly anxious. Const: Vital Signs, click to edit/add: Vital Signs - 24 hr 03/14/24 12:10 03/14/24 14:29 Temperature 98.6 F Pulse Rate [Pulse Oximeter] 91 90 Respiratory Rate 18 18 Blood Pressure [Ri ght Upper Arm] 175/74 H 165/88 H Pulse Oximetry 97 96 Oxygen Delivery Me thod Room Air Room Air Course Vital Signs Vital signs: Initial Vital Signs Temperature 98.6 F 03/14/24 12:10 Temperature Source Temporal Artery Scan 03/14/24 12:10 Pulse Rate 91 03/14/24 12:10 Respiratory Rate 18 03/14/24 12:10 Blood Pressure 175/74 H 03/14/24 12:10 Blood Pressure Mean 107 H 03/14/24 12:10 Pulse Oximetry 97 03/14/24 12:10 Oxygen Delivery Method Room Air 03/14/24 12:10 Vital Signs Temperature 98.6 F 03/14/24 12:10 Pulse Rate 91 03/14/24 12:10 Respiratory Rate 18 03/14/24 12:10 Blood Pressure 175/74 H 03/14/24 12:10 Pulse Oximetry 97 03/14/24 12:10 Oxygen Delivery Method Room Air 03/14/24 12:10 Temperature 97.4 F L 03/14/24 14:46 Pulse Rate 103 H 03/14/24 14:49 Respiratory Rate 20 03/14/24 15:14 Blood Pressure 194/99 H 03/14/24 14:49 Pulse Oximetry 97 03/14/24 15:14 Oxygen Delivery Method Room Air 03/14/24 15:14 Medications Administered Medications: Discontinued Medications Generic Name Dose Route Start Last Admin Trade Name Freq PRN Reason Stop Dose Admin Sodium Chloride 500 mls @ 500 mls/hr 03/14/24 12:40 03/14/24 14:28 0.9 % Sodium Chloride 500 Ml IV 03/14/24 13:39 Infused .Q1H ONE Infusion Ondansetron HCl 4 mg 03/14/24 12:43 03/14/24 13:22 Ondansetron 2 Mg/Ml Inj IVP 03/14/24 12:44 4 mg ONCE ONE Administration Medical Decision Making [facility] Narrative Medical decision making narrative: This patient presents with poor appetite, nausea, and multiple episodes of watery/soft diarrhea for the past week or maybe 2 weeks. Now also developing progressive shakiness, dizziness, and generalized, nonfocal weakness.. The patient's symptoms and exam could be consistent with a viral GI infection. Differential would also include bacterial enteritis but she has not had any bloody or mucousy stool. No recent antibiotics. No recent travel or high risk exposure for baceraial pathogen. No recent antibiotics or risk factors for C. diff. nonetheless, given duration of symptoms, I have ordered stool culture and C diff. fortunately, diarrhea seems to have stopped and she has not had any further stools since arrival here in the ER. I don't see any evidence for appendicitis, bowel obstruction, abscess, bowel perforation, or other surgical emergency. Labs show show significant hyponatremia with a sodium of 118 which is likely due to GI losses. I suspect this is contributing to her weakness and shakiness. Along with his chloride low at 84. Bicarb normal at 26. Potassium normal 4.4. BUN and creatinine normal. CBC is reassuring. In terms of hyponatremia she received 500 mL of IV saline here in the ER. She is not hypotensive or shocky requiring large volumes of crystalloid resuscitation. Otherwise will go to free water restriction for now. Mental status is normal. No focal deficits. She does have generalized weakness which is a likely symptom of hyponatremia for her. She does also has hypertension. Screening EKG and troponin are negative for any signs of acute ischemia or end-organ damage. Suspect the elevated blood pressures likely due to anxiety due to her other symptoms. She will be admitted to the hospitalist service for treatment of her hyponatremia. Patient is in agreement. Lab Data Labs: Lab Results 03/14/24 Range/Units 13:10 WBC 7.31 (4.50-11.00) K/uL RBC 5.22 H (4.00-5.20) m/uL Hgb 15.0 (12.0-16.0) gm/dL Hct 44.1 (33.0-51.0) % MCV 85 (80-100) fL MCH 29 (26-34) pg MCHC 34 (32-36) gm/dL RDW Coeff of Aimee 12.5 (11.5-15.5) % Plt Count 257 (140-440) K/uL Neut % (Auto) 66.0 (42.0-72.0) % Lymph % (Auto) 21.8 (20-44) % [place] % (Auto) 9.6 (0.0-11.0) % Eos % (Auto) 0.8 (0.0-7.0) % Baso % (Auto) 0.4 (0.0-3.0) % Neut # (Auto) 4.83 (1.7-7.0) K/uL Lymph # (Auto) 1.59 (0.90-2.90) K/uL [place] # (Auto) 0.70 (0.00-0.90) K/UL Eos # (Auto) 0.06 (0.00-0.50) K/uL Baso # (Auto) 0.03 (0.00-0.30) K/uL Abs Immat Gran (auto) 0.10 (0.00-0.30) K/uL Imm/Tot Granulo (auto) 1.4 % Sodium 117 L* (135-149) mmol/L Potassium 4.4 (3.6-5.1) mmol/L Chloride 84 L (96-114) mmol/L Carbon Dioxide 26 (20-32) mmol/L Anion Gap 7 (7-15) mEq/L BUN 10 (7-30) mg/dL Creatinine 0.6 (0.5-1.5) mg/dL Estimated Creat Clear 37.80 Estimated GFR 87 ml/min Glucose 104 (60-115) mg/dL Lactate 0.9 (0.5-1.9) mmol/L Calcium 9.0 (8.4-10.6) mg/dL Magnesium 1.7 (1.5-2.6) mg/dL Troponin I < 0.01 L (0.01-0.04) ng/mL ECG Data Attestation: I personally reviewed and interpreted this ECG as follows: Interpretation: Normal sinus rhythm Rate: 74 TN: 182 QRS axis: Normal axis. ST segment/T wave: No ST segment elevation or depression. Nonspecific T-wave flattening in leads 3 and AVF QTc: 410 Discharge Plan Discharge Clinical Impression: Hyponatremia, Diarrhea, Weakness Patient Disposition: Admitted As Observation
--- OUTSIDE RECORDS SUMMARY | 2024-03-14 12:59 | XMS_ITS | Clinical Summary ---
Author Organization [facility] Address [place], [place] [address] Care Team Providers Care Internal Control Consultant Name Role Phone Ofelia Mina MD Unavailable [phone] Cori Castellon Unavailable Unavailab Clover Blackmon Primary [...] 2 weeks, is 100% pain relief per [facility] Message. Muscle cramps 10/01/2020 Hypokalemia 07/21/2019 Anxiety 10/12/2015 Routine general medical exam ination at a health care facility 07/28/2014 Overview (07/28/2014): Colonoscopy 2011. No need for further testing. 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 Discussed and will not repeat test. Diana Kay M.D. 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 07/20/2012 Pelvic mass 05/30/2011 07/20/2012 Encounters Date Type Department Care Team Description 03/08/2024 Nurse Triage [facility] [address] [place] [address] Clover Rice PA Derm Problem; Mouth/Lip Problem (swelling) 02/16/2024 8:20 AM CDT Office Visit [facility] at [facility] [address] [place] [address] Werner Miller MD Procedure (L4-5 ILESI) 01/26/2024 Telephone [facility] [address] [place] [address] Werner Miller MD SPINE INJECTIONS ORDERS 01/08/2024 1:50 PM CDT Office Visit [facility] [address] [place] [address] Kristina Torres PA Blood Pressure (BP has been high-feeling 'out of sorts' like 'something is wrong'-recently off Gabapentin-feels like she did when electrolytes were off) 01/08/2024 Travel 01/08/2024 Telephone [facility] [address] [place] [address] Werner Miller MD Results (MRI) 01/08/2024 Telephone [facility] [address] [place] [address] Clover Rice PA General Illness/Other (BLOOD PRESSURE ) 01/06/2024 10:10 AM CDT Office Visit [facility] [address] [place] [address] Clover Rice PA ER Follow up (Post ER - hypertension); Concerns (Was put on gabapentin by Angela but started to have side effects - rash- chest heaviness - elevate BP, has been off the medication 5 days now and sx are slowly improving. Wants to discuss) 01/06/2024 Travel 01/01/2024 Nurse Triage [facility] [address] [facility] [address] Clover Rice PA Throat Problem; High Blood Pressure 01/01/2024 Telephone [facility] [address] [place] [address] [address] Clover Rice PA Questions (COVID-19 QUESTIONS ) 01/01/2024 Refill [facility] [address] [facility] [place] [address] Clover Rice PA Refill Request (Triamcinolone) 12/31/2023 11:45 AM CDT Ancillary Procedure [facility] [address] [facility] [address] 12/31/2023 Travel 12/28/2023 Travel from Last 3 Months Immunizations Name [...] file 01/06/2024 Food Insecurity Answer Date Recorded Do you worry your food will run out before you are able to buy more? 1 01/06/2024 Transportation Needs Answer Date Record ed Lack of Transportation (Medical) 1 01/06/2024 Housing Stability Answer Date Recorded What is your housing situation today? 1 01/06/2024 Sex and Gender Information Value [...] T Respiratory Rate 16 05/17/2022 12:12 PM AGRICULTURAL RESEARCH TECHNICIAN Oxygen Saturation 97% 01/08/2024 1:47 PM CDT Inhaled Oxygen Concentration - - Weight 75.8 kg (167 lb) 01/08/2024 1:47 PM CDT Height 167.6 cm (5' 6) 09/04/2023 10:43 AM CDT Body Mass Index 26.95 09/04/2023 10:43 AM CDT Plan of Treatment Upcoming Encounters Date Type Department Care Team (Late st Contact Info) Description 03/28/2024 9:50 AM AGRICULTURAL RESEARCH TECHNICIAN Office Visit [facility] [address] [place] [address] Clover Rice PA [address] [place] [address] Health Maintenance Due Date Last Done Comments [...] Additional history exists COVID-19 vaccine series Completed 02/01/20 24, 02/18/2023, 02/10/2022, Additional history exists Procedures Procedure [...] WITH AUTO DIFFERENTIAL (01/08/2024 2:37 PM CDT) [facility] WHITE BLOOD COUNT 7.5 4.5 - 11.0 thou/cu mm 01/08/2024 2:43 PM CDT [facility] RED BLOOD COUNT 5.16 4.00 - 5.20 mil/cu mm 01/08/2024 2:43 PM CDT [facility] HEMOGLOBIN 15.3 12.0 - 16.0 g/dL 01/08/2024 2:43 PM CDT [facility] HEMATOCRIT 44.4 33.0 - 51.0 % 01/08/2024 2:43 PM CDT [facility] MCV 86 80 - 100 fL 01/08/2024 2:43 PM CDT [facility] MCH 29.7 26.0 - 34.0 pg 01/08/2024 2:43 PM CDT [facility] MCHC 34.5 32.0 - 36.0 g/dL 01/08/2024 2:43 PM CDT [facility] RDW 13.1 11.5 - 15.5 % 01/08/2024 2:43 PM CDT [facility] PLATELET COUNT 252 140 - 440 thou/cu mm 01/08/2024 2:43 PM CDT [facility] MPV 11.0 6.5 - 11.0 fL 01/08/2024 2:43 PM CDT [facility] % NEUT 60.8 % 01/08/2024 2:43 PM CDT [facility] % LYMPH 26.7 % 01/08/2024 2:43 PM CDT [facility] % MONO 10.9 % 01/08/2024 2:43 PM CDT [facility] % EOS 1.2 % 01/08/2024 2:43 PM CDT [facility] % BASO 0.4 % 01/08/2024 2:43 PM CDT [facility] ABSOLUTE NEUTROPHILS 4.6 1.7 - 7.0 thou/cu mm 01/08/2024 2:43 PM CDT [facility] ABSOLUTE LYMPHOCYTES 2.0 0.9 - 2.9 thou/cu mm 01/08/2024 2:43 PM CDT [facility] ABSOLUTE MONOCYTES 0.8 <0.9 thou/cu mm 01/08/2024 2:43 PM CDT [facility] ABSOLUTE EOSINOPHILS 0.1 <0.5 thou/cu mm 01/08/2024 2:43 PM CDT [facility] ABSOLUTE BASOPHILS 0.0 <0.3 thou/cu mm 01/08/2024 2:43 PM CDT [facility] Blood BLOOD SPECIMEN / Unknown Venipuncture / Unknown 01/08/2024 2:37 PM CDT 01/08/2024 2:38 PM CDT Kristina PANTOJA HEMATOLOGY [facility] [address] [place] [address], [place] [phone] * TSH (01/08/2024 2:37 PM CDT) TSH 2.00 0.27 - 4.20 uIU/mL 01/08/2024 10:47 PM CDT [facility] Blood BLOOD SPECIMEN / Unknown Venipuncture / Unknown 01/08/2024 2:37 PM CDT 01/08/2024 2:38 PM CDT Narrative [facility] - 01/08/2024 10:47 PM CDT In Adults, TSH values between 5.00 and 10.00 uIU/ml do not necessarily indicate the presence of Hypothyroidism. Correlation with clinical findings such as presence of goiter and/or Thyroperoxidase (TPO) Antibody may be helpful. For more information please refer to KIMMY 2004; 291: 228-238. Kristina PANTOJA CHEMISTRY [facility] [address] [place] [address], [place] * IRON PLUS IRON BINDING CAP (01/08/2024 2:37 PM CDT) IRON 53 37 - 145 ug/dL 01/08/2024 10:47 PM CDT [facility] UIBC (UNSATURATED) 331 112 - 347 ug/dL 01/08/2024 10:47 PM CDT [facility] IRON BINDING CAPACITY 384 250 - 400 ug/dL 01/08/2024 10:47 PM CDT [facility] IRON,% SATURATION 14 14 - 50 % 01/08/2024 10:47 PM CDT [facility] Blood BLOOD SPECIMEN / Unknown Venipuncture / Unknown 01/08/2024 2:37 PM CDT 01/08/2024 2:38 PM CDT Kristina PANTOJA CHEMISTRY [facility] [address] [address], [place] * MAGNESIUM (01/08/2024 2:37 PM CDT) MAGNESIUM 1.7 1.6 - 2.4 mg/dL 01/08/2024 10:47 PM CDT [facility] Blood BLOOD SPECIMEN / Unknown Venipuncture / Unknown 01/08/2024 2:37 PM CDT 01/08/2024 2:38 PM CDT Kristina PANTOJA CHEMISTRY Performing Organization Address [facility] Co de Phone Number [facility] [address] [place] [address], [place] * (ABNORMAL) FERRITIN (01/08/2024 2:37 PM CDT) FERRITIN 368.0(H) 15.0 - 150.0 ng/mL 01/08/2024 10:47 PM CDT [facility] Blood BLOOD SPECIMEN / Unknown Venipuncture / Unknown 01/08/2024 2:37 PM CDT 01/08/2024 2:38 PM CDT Kristina PATNOJA CHEMISTRY Performing Organization Address City/[facility]/ZIP Co de Phone Number [facility] [address] [place] [address], [place] * (ABNORMAL) COMP METABOLIC PANEL (01/08/2024 2:37 PM CDT) [facility] SODIUM 136 136 - 145 mmol/L 01/08/2024 10:47 PM T [facility] POTASSIUM 4.2 3.5 - 5.1 mmol/L 01/08/2024 10:47 PM T [facility] CHLORIDE 96(L) 98 - 107 mmol/L 01/08/2024 10:47 PM T [facility] CO2,TOTAL 26 22 - 29 mmol/L 01/08/2024 10:47 PM T [facility] ANION GAP 14 5 - 18 01/08/2024 10:47 PM T [facility] GLUCOSE 113(H) 70 - 99 mg/dL 01/08/2024 10:47 PM T [facility] CALCIUM 10.3(H) 8.8 - 10.2 mg/dL 01/08/2024 10:47 PM [facility] BUN 10 8 - 23 mg/dL 01/08/2024 10:47 PM [facility] CREATININE 0.92(H) 0.50 - 0.90 mg/dL 01/08/2024 10:47 PM [facility] BUN/CREAT RATIO 11 10 - 20 10:47 PM [facility] eGFR 61(L) >90 mL/min/1.7 3m2 01/08/2024 10:47 PM [facility] Comment:As of 2021, eG FR is calculated by the CKD-EPI creatinine equation without race adjustment. ??eGFR can be influenced by muscle mass, exercise, and diet. ??The reported eGFR is an estimation only and is only applicable if the renal function is stable. ALBUMIN 4.8 4.0 - 4.9 g/dL 01/08/2024 10:47 PM T [facility] PROTEIN,TOTAL 7.6 6.0 - 8.0 g/dL 01/08/2024 10:47 PM [facility] BILIRUBIN,TOTAL 0.4 0.0 - 1.2 mg/dL 01/08/2024 10:47 PM CDT [facility] ALK PHOSPHATASE 76 35 - 104 IU/L 01/08/2024 10:47 PM CDT [facility] ALT (SGPT) 26 10 - 35 IU/L 01/08/2024 10:47 PM CDT [facility] AST (SGOT) 38(H) 10 - 35 IU/L 01/08/2024 10:47 PM CDT [facility] Blood BLOOD SPECIMEN / Unknown Venipuncture / Unknown 01/08/2024 2:37 PM CDT 01/08/2024 2:38 PM CDT Kristina PANTOJA CHEMISTRY [facility] [address] [place] [id number], * MR SPINE LUMBAR WO (12/31/2023 12:12 [...] (ABNORMAL) XR DEXA BONE DENSITY 2 SITES [16752.1] (08/23/2015 8:42 AM CDT) Anatomical Region Laterality Modality Spine, HIPS, HIPL, HIPR Other Narrative 08/28/2015 11:39 AM CDT Please see scanned document for results of this study. Clover PANTOJA DEXA from Last 3 Months or Most Recently Relevant to Health Maintenance Advance Directives Documents on File Type Date Recorded Patient Mobile Health Vehicle Operator Expl anation Healthcare Directive 09/01/2011 * Full Code (Latest Code Status on File) Date Activated Date Inactivated Comments 07/30/2012 10:09 AM 07/30/2012 5:38 PM * Full Code Date Activated Date Inactivated Comments 08/25/2011 9:55 AM 08/29/2011 1:03 PM * Full Code Date Activated Date Inactivated Comments 08/25/2011 5:50 AM 08/25/2011 9:55 AM Care Teams Internal Control Consultant Relationship Specialty Start Date End Date [place] [address] PCP - General Physician Electrocardiograph Operator 01/13/22 Ofelia Mina MD Obstetrics and Gynecology 06/04/12 Cori Castellon [facility] 06/04/12
[2024-03-14 13:17] LABS: Lactate* 0.9 mmol/L (0.5-1.9)
[2024-03-14 13:18] LABS: Basophils Absolute Auto 0.03 K/uL (0.00-0.30); Basophils Percent Auto 0.4 % (0.0-3.0); Eosinophils Absolute Auto 0.06 K/uL (0.00-0.50); Eosinophils Percent Auto 0.8 % (0.0-7.0); Hematocrit 44.1 % (33.0-51.0); Immature Granulocytes Pct Auto 1.4 %; Lymphocytes Absolute Auto 1.59 K/uL (0.90-2.90); Lymphocytes Percent Auto 21.8 % (20-44); Mean Corpuscular HGB Conc 34 gm/dL (32-36); Mean Corpuscular Hemoglobin 29 pg (26-34); Mean Corpuscular Volume 85 fL (80-100); Monocytes Percent Auto 9.6 % (0.0-11.0); Neutrophils Absolute Auto 4.83 K/uL (1.7-7.0); Platelet Count* 257 K/uL (140-440); RDW Coefficient of Variation % 12.5 % (11.5-15.5); Red Blood Count 5.22 m/uL (4.00-5.20); White Blood Count* 7.31 K/uL (4.50-11.00)
[2024-03-14 13:21] LABS: Slide Review Reflex No
[2024-03-14] MEDS: 0.9 % SODIUM CHLORIDE 500 ML 500 ML IV (13:22)
[2024-03-14] MEDS: ONDANSETRON 2 MG/ML inj 4 MG IVP (13:22)
[2024-03-14 13:38] LABS: Chloride* 84 mmol/L (96-114)
[2024-03-14 13:39] LABS: Potassium* 4.4 mmol/L (3.6-5.1)
[2024-03-14 13:41] LABS: Creatinine* 0.6 mg/dL (0.5-1.5); Estimated Glomerular Filt Rate 87 ml/min
[2024-03-14 13:42] LABS: Anion Gap 7 mEq/L (7-15); Blood Urea Nitrogen* 10 mg/dL (7-30); Carbon Dioxide* 26 mmol/L (20-32); Glucose* 104 mg/dL (60-115); Magnesium* 1.7 mg/dL (1.5-2.6)
[2024-03-14 13:56] LABS: Sodium* 117 mmol/L (135-149); Troponin I* < 0.01 ng/mL (0.01-0.04)
--- NOTE | 2024-03-14 15:22 | PC.NURSE ---
End of Shift: Patient arrived to floor about 1447. Patient hypertensive, lungs clear, BS WNL, IV SL and intact. Patient denies pain, urinated 900. Patient SBA/walker. Admission complete.
[2024-03-14 15:24] LABS: Appearance Urine Clear (Clear); Bilirubin Urine Negative (Negative); Blood Urine Negative (Negative); Color Urine Yellow (Yellow); Glucose Urine Negative (Negative); Ketones Urine Trace (Negative); Leukocyte Esterase Urine Negative (Negative); Nitrite Urine Negative (Negative); Protein Urine Negative (Negative); Specific Gravity Urine 1.015 (1.000-1.030); Urobilinogen Urine 0.2 (0.2-1.0); pH Urine 7.5 (5.0-8.5)
[2024-03-14 15:34] LABS: RBC Urine 0-2 (0-2); WBC Urine 0-2 (0-5)
--- NOTE | 2024-03-14 16:23 | P.IMHP_ITS ---
Hospitalist- H&P: HPI History of Present Illness Date Seen: 03/14/24 Chief complaint: High BP, diarrhea, cant eat, feels shaky Narrative: Kiley Mccord is a 88 year old female ADMISSION HISTORY AND PHYSICAL - HOSPITALIST Chief Complaint: weakness, diarrhea HPI: 89 y/o WF with malaise, diarrhea for about a week. 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 No stools since arrival. no fever. no blood. appetite is poor. social contact with folks with diarrheal illness. no travel. has had hyponatremia in the past when ill. Hypertensive upon arrival. Mildly tachycardic. Afebrile. On room air. ER COURSE: Fluids, zofran. admission. REVIEWED ER NOTE She was seen in the ER last week on 03/[address] Cuba. She had presented with itchiness on her body, rash on her chest, loose stools without bloody stools. She apparently had conjunctivitis and was treated with eyedrops. She was also treated with prednisone 20 mg b.i.d. for 3 days orally and Benadryl orally. Was seen in the ER in December with several concerns. Among them was elevated blood pressure with reports of systolic blood pressure readings 170 at home. More recent past history includes that she has ongoing trouble with low back pain. She was put on gabapentin for that several weeks ago but did not like it because of side effects. She also had a shot into her low back about a month ago done by Dr. Lopez. She says that her back pain has gotten slightly better after that shot. Her current symptoms began perhaps a week or 2 or 3 ago. She notes that she has some chronic poor appetite. Sometime last week or maybe them week before she started having diarrhea. She had liquidy stools and several stools per day. Along with that she had a rash on her arms and legs and trunk as well as some conjunctivitis for her eyes. She was put on prednisone for the rash and drops for her eyes and those symptoms are improved. However she has had ongoing diarrhea since last week and over the weekend. She describes at lease five or 6 loose stools per day and sometimes getting up at night for loose stools. Along with that she has had decrease in her appetite over the past couple of days. She has been trying to make herself drink fluids and eat some food. Since yesterday she has also had nausea. No vomiting yet. She has not noticed any blood or mucus in her stool. No recent antibiotics. She occasionally gets some abdominal cramps but no significant abdominal pain. No flank pain. CODE STATUS: DNR/DNI EMERGENCY CONTACT PLAN: Her son and daughter in-law Name Danny Mccord Rel To Pat Son Cell I've updated the PFSH, medications and allergies in the [facility] tabs. INVESTIGATIONS: LABS/MICRO/ECG/IMAGING She has been hypertensive since arrival. 176/85, 201/105, 194/99. She is afebrile Her pulse is in the high 90s to 103 Pulse ox is 97% on room air Standing weight upon admission is 76.742 kg Sodium upon arrival in the ED this afternoon, 117. However historically she has been as low as 118 back in 2021. Last year in October of 2022 she was 134. There are no normal sodiums resulted in our EMR. She is mildly hypochloremic. Her glucose is normal. Her calcium is normal. Her troponin is undetectable Urine shows trace ketones otherwise unremarkable. No radiology exam EKG shows normal sinus rhythm, normal ECG REVIEW OF SYSTEMS: 12-point ROS completed with patient and negative unless otherwise stated in HPI or below. PHYSICAL EXAM: CONSTITUTIONAL: Conversive, good historian. A/O. Knows setting and context. VITAL SIGNS: see record. HEENT: Normocephalic, atraumatic. PERRL, EOMI, conjunctivae pink, no scleral icterus. Ears and nose externally normal. Pharynx dry. lips dry. NECK: No JVD. No carotid bruit, no thyromegaly, no adenopathy. CHEST: Clear to auscultation bilaterally HEART: S1 and S2 normal. No harsh murmurs but a soft holosystolic murmur noted. MUSCULOSKELETAL: No gross joint deformity or swelling. NEURO: Cranial nerves intact. Grossly intact. No asymmetric findings. SKIN: No rashes, petechiae, concerning changes PSYCHIATRIC: Euthymic. ADMIT TO MEDSURG: FLOOR CARE DVT: Lovenox GI: PO intake Time spent: Today I spent 75 minutes seeing the patient, discussing the patient with ER staff, reviewing [facility] and [facility] notes/diagnostics, discussing the care plan with our care time that includes social work, PT/OT, pharmacy, RT, fci and documenting my impressions and plan in the medical record. [facility] Medical History (Updated 03/14/24 @ 18:00 by Mikayla Sinclair MD) Osteoarthritis of left knee ?M17.12 - Unilateral primary osteoarthritis, left knee (ICD-10) Tear of lateral meniscus of left knee ?S83.282A - Other tear of lateral meniscus, current injury, left knee, initial encounter (ICD-10) Effusion, left knee ?M25.462 - Effusion, left knee (ICD-10) Allergic reaction ?T78.40XA - Allergy, unspecified, initial encounter (ICD-10) Major depressive disorder, single episode, mild ?F32.0 - Major depressive disorder, single episode, mild (ICD-10) Sensorineural hearing loss, bilateral ?H90.3 - Sensorineural hearing loss, bilateral (ICD-10) Hyperlipidemia, unspecified ?E78.5 - Hyperlipidemia, unspecified (ICD-10) Osteoarthritis of right knee ?M17.11 - Unilateral primary osteoarthritis, right knee (ICD-10) Hypokalemia ?E87.6 - Hypokalemia (ICD-10) Anxiety ?F41.9 - Anxiety disorder, unspecified (ICD-10) Squamous cell carcinoma in situ ?D09.9 - Carcinoma in situ, unspecified (ICD-10) Cholesteatoma ?H71.90 - Unspecified cholesteatoma, unspecified ear (ICD-10) HTN (hypertension) ?I10 - Essential (primary) hypertension (ICD-10) Osteopenia ?M85.80 - Other specified disorders of bone density and structure, unspecified site (ICD-10) Surgical History History of hysterectomy ?Z90.710 - Acquired absence of both cervix and uterus (ICD-10) Family History Mother High blood pressure Social History Narrative: She lives at [address] [place] [address]. She reports generally this is going well for her. She was a few years ago and does find that sometimes his heart being alone. 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 Her son Danny is healthcare power of senior trial attorney. Code status is full. What is your current living situation?: I presently have a place to live Problems where you live: no known problems Problems where you live details: none In the past 12 months, utilities in danger of being shut off: no In past 12 months, lack of transportation kept you from medical appts, meetings, work, or getting things needed for daily living: no In the past 12 mos, have been you worried that your food would run out before you had money to buy more?: never true In the past 12 mos, the food you bought just didn't last and you didn't have money to buy more?: never true Highest level of school completed/degree received: some college, no degree Smoking Status: Never smoker Do you use any of these nicotine containing products: None Second hand tobacco smoke exposure: No How often do you have a drink containing alcohol: 2-3 times a week Alcohol type: wine How many standard drinks containing alcohol do you have on a typical day: 1 or 2 How often do you have six or more drinks on one occasion: Never AUDIT-C Alcohol total score: 3 Non-prescribed substance use: denies use Caffeine: Yes (2-3 cups of coffee) How often does anyone, including family, friends and others, physically hurt you : never How often does anyone, including family, friends and others, insult or talk down to you: never How often does anyone, including family, friends and others, threaten you with harm: never How often does anyone, including family, friends and others, scream or curse at you: never Are you using contraception or practicing any form of control: No service: No Meds Home Medications and Allergies Home Medications ?Medication ?Instructions ?Recorded ?Confirmed ?Type simvastatin 20 mg tablet 20 mg PO HS 01/13/22 03/14/24 History calcium 600 mg (as 1 tab PO BID 01/14/22 03/14/24 History carbonate)-vitamin D3 20 mcg (800 unit) tablet (Caltrate with Vitamin D3) polyethylene glycol 3350 17 17 g PO DAILY PRN 01/14/22 03/14/24 History gram/dose oral powder (Miralax) olmesartan 20 mg tablet 20 mg PO HS 11/02/22 03/14/24 History Allergies Allergy/AdvReac Type Severity Reaction Status Date / Time aluminum [From Drysol] Allergy Severe Blister Verified 02/16/24 08:35 lisinopril Allergy Mild Verified 02/16/24 08:35 losartan Allergy Verified 02/16/24 08:35 Penicillins Allergy Verified 02/16/24 08:35 sertraline [From Zoloft] Allergy Verified 01/01/24 16:54 Exam Const: Vital Signs, click to edit/add: Vital Signs - 24 hr 03/14/24 12:10 03/14/24 14:29 03/14/24 14:46 Temperature 98.6 F 97.4 F L Pulse Rate [Pulse Oximeter] 91 90 92 Respiratory Rate 18 18 20 Blood Pressure [Le ft Arm] 201/105 H Blood Pressure [Ri ght Upper Arm] 175/74 H 165/88 H Pulse Oximetry 97 96 97 Oxygen Delivery Me thod Room Air Room Air Room Air 03/14/24 14:49 03/14/24 15:14 Temperature Pulse Rate [Pulse Oximeter] 103 H Respiratory Rate 20 Blood Pressure [Le ft Arm] 194/99 H Blood Pressure [Ri ght Upper Arm] Pulse Oximetry 97 Oxygen Delivery Me thod Room Air Hospitalist - H&P: Result Labs Labs: Short CBC 03/14/24 Range/Units 13:10 WBC 7.31 (4.50-11.00) K/uL Hgb 15.0 (12.0-16.0) gm/dL Hct 44.1 (33.0-51.0) % Plt Count 257 (140-440) K/uL BMP 03/14/24 13:10 Sodium 117 L* Potassium 4.4 Chloride 84 L Carbon Dioxide 26 BUN 10 Creatinine 0.6 Glucose 104 Calcium 9.0 Cardiac Enzymes 03/14/24 Range/Units 13:10 Troponin I < 0.01 L (0.01-0.04) ng/mL Urine 03/14/24 Range/Units 15:15 Urine Color Yellow (Yellow) Urine Appearance Clear (Clear) Urine pH 7.5 (5.0-8.5) Ur Specific [place] 1.015 (1.000-1.030) Urine Protein Negative (Negative) Urine Glucose (UA) Negative (Negative)
[2024-03-14] MEDS: PANTOPRAZOLE SODIUM 40 MG INJ IVP (17:46)
[2024-03-14] MEDS: POTASSIUM CHLORIDE 10 MEQ CAPSULE ER 30 MEQ PO (17:46)
[2024-03-14] MEDS: OLMESARTAN MEDOXOMIL 20 MG TABLET PO (17:47)
[2024-03-14] MEDS: SODIUM CHLORIDE 0.9 % (FLUSH) 10 ML SYRINGE 5 ML IVF ×2 (17:48→19:59)
[2024-03-14 18:17] LABS: Chloride* 89 mmol/L (96-114); Potassium* 3.9 mmol/L (3.6-5.1); Sodium* 125 mmol/L (135-149)
[2024-03-14 18:20] LABS: Anion Gap 9 mEq/L (7-15); Blood Urea Nitrogen* 9 mg/dL (7-30); Carbon Dioxide* 27 mmol/L (20-32); Creatinine* 0.6 mg/dL (0.5-1.5); Estimated Glomerular Filt Rate 87 ml/min
[2024-03-14 18:21] LABS: Calcium* 9.5 mg/dL (8.4-10.6); Glucose* 107 mg/dL (60-115)
[2024-03-14] MEDS: DESMOPRESSIN ACETATE 4 MCG/ML inj 2 MCG IVP (19:58)
[2024-03-14] MEDS: SIMVASTATIN 20 MG TABLET PO (19:58)
[2024-03-14] MEDS: ENOXAPARIN 40 MG/0.4 ML INJ SUBCUT (19:59)
[2024-03-14] MEDS: 5 % DEXTROSE 1000 ML 1,000 ML 50 ML IV (20:19)
[2024-03-14 21:29] LABS: Potassium Urine Random* 13.5; Sodium Urine Random* 19
[2024-03-14] MEDS: ACETAMINOPHEN 325 MG TABLET PO (22:10)
[2024-03-14] MEDS: MELATONIN 3 MG TABLET PO (22:11)
--- NOTE | 2024-03-14 22:19 | PC.NURSE ---
Shift Note: Pt friendly and cooperative, able to verbalize her needs. BP's hypertensive, HS antihypertensive given early per MD and BP's have improved. VS otherwise WNL and LS COA. Afebrile. Moves well with SBA. C/o 5/10 headache, Tylenol given PRN. Sodium increased from 118---->125, desmopressin given IVP and pt started on D5W maintenance per MD order. Recheck at 2200 pending. No BM since admission. 1500cc FR in place.
[2024-03-14 22:28] LABS: Chloride* 89 mmol/L (96-114)
[2024-03-14 22:31] LABS: Blood Urea Nitrogen* 9 mg/dL (7-30); Carbon Dioxide* 28 mmol/L (20-32)
[2024-03-14 22:32] LABS: Calcium* 8.8 mg/dL (8.4-10.6); Glucose* 132 mg/dL (60-115); Sodium* 122 mmol/L (135-149)
[2024-03-14 23:05] LABS: Anion Gap 5 mEq/L (7-15)
[2024-03-14 23:42] LABS: Estimated Glomerular Filt Rate 84 ml/min
[2024-03-14 23:45] LABS: Creatinine* 0.7 mg/dL (0.5-1.5)
[2024-03-15 02:23] LABS: Chloride* 91 mmol/L (96-114); Potassium* 4.3 mmol/L (3.6-5.1)
[2024-03-15 02:26] LABS: Creatinine* 0.6 mg/dL (0.5-1.5); Estimated Glomerular Filt Rate 87 ml/min
[2024-03-15 02:27] LABS: Anion Gap 5 mEq/L (7-15); Blood Urea Nitrogen* 9 mg/dL (7-30); Calcium* 8.7 mg/dL (8.4-10.6); Carbon Dioxide* 26 mmol/L (20-32); Glucose* 119 mg/dL (60-115)
[2024-03-15 02:31] LABS: Sodium* 122 mmol/L (135-149)
[2024-03-15 03:20] VITALS: BP 156/78; PULSE 70; RESP 18; O2SAT 97
[2024-03-15] MEDS: ACETAMINOPHEN 325 MG TABLET PO ×2 (06:12→16:57)
--- NOTE | 2024-03-15 06:18 | PC.NURSE ---
End of shift [id number]: A&O pleasant and cooperative. VSS. Denies pain. Pt moves w/ SBA walker and GB. Tolerates well. No BM this shift. [address] Pt using call light appropriately.
[2024-03-15 06:20] LABS: Ionized Calcium* 1.07 mmol/L (1.11-1.30)
[2024-03-15 06:28] LABS: Basophils Absolute Auto 0.02 K/uL (0.00-0.30); Basophils Percent Auto 0.3 % (0.0-3.0); Eosinophils Absolute Auto 0.15 K/uL (0.00-0.50); Eosinophils Percent Auto 2.5 % (0.0-7.0); Hematocrit 41.8 % (33.0-51.0); Hemoglobin* 14.1 gm/dL (12.0-16.0); Immature Granulocytes Abs Auto 0.06 K/uL (0.00-0.30); Lymphocytes Absolute Auto 2.06 K/uL (0.90-2.90); Lymphocytes Percent Auto 33.7 % (20-44); Mean Corpuscular HGB Conc 34 gm/dL (32-36); Mean Corpuscular Hemoglobin 29 pg (26-34); Mean Corpuscular Volume 86 fL (80-100); Monocytes Percent Auto 10.6 % (0.0-11.0); Neutrophils Absolute Auto 3.18 K/uL (1.7-7.0); Neutrophils Percent Auto 51.9 % (42.0-72.0); Platelet Count* 231 K/uL (140-440); Red Blood Count 4.89 m/uL (4.00-5.20); White Blood Count* 6.12 K/uL (4.50-11.00)
[2024-03-15 06:32] LABS: Slide Review Reflex No
[2024-03-15 06:48] LABS: Albumin* 3.9 g/dL (3.3-5.0); Chloride* 90 mmol/L (96-114)
[2024-03-15 06:51] LABS: Alkaline Phosphatase* 57 U/L (40-150); Anion Gap 6 mEq/L (7-15); Aspartate Amino Transferase* 24 U/L (12-35); Bilirubin Total* 0.6 mg/dL (0.1-1.5); Blood Urea Nitrogen* 9 mg/dL (7-30); Carbon Dioxide* 25 mmol/L (20-32); Creatinine* 0.6 mg/dL (0.5-1.5); Estimated Glomerular Filt Rate 87 ml/min; Total Protein* 6.1 g/dL (6.0-8.3)
[2024-03-15 06:52] LABS: Alanine Aminotransferase* 19 U/L (4-35); Calcium* 8.7 mg/dL (8.4-10.6); Glucose* 124 mg/dL (60-115); Magnesium* 1.9 mg/dL (1.5-2.6); Phosphorus* 3.6 mg/dL (2.5-4.5)
[2024-03-15 07:00] VITALS: BP 131/85; PULSE 68; PULSE 73; RESP 18; TEMP 36.4; O2SAT 96
[2024-03-15 07:00] LABS: Sodium* 121 mmol/L (135-149)
[2024-03-15] MEDS: POTASSIUM CHLORIDE 10 MEQ CAPSULE ER 30 MEQ PO ×2 (08:26→18:32)
[2024-03-15] MEDS: SODIUM CHLORIDE 1 GM TABLET PO ×3 (08:26→18:32)
--- NOTE | 2024-03-15 09:34 | PM.IMPN1 ---
Progress Note: A&P Assessment and plan (1) Hyponatremia: Problem details: - 117 at admission. Given hypertonic saline: 125 (then D5) -> 122 ->121 ->121 - continue to monitor closely with prn hypertonic saline to ensure appropriate rate of correction - 1500mL fluid restriction, protein supplementation - h/o 2021 admission for same (at that time also had diarrheal illness and was on HCTZ) Status: Acute (2) Diarrhea: Problem details: - likely viral; checking CDIFF when she stools (unless formed) - will send stat GI PCR panel to [facility] as well. Status: Acute (3) HTN (hypertension): Problem details: - hypertensive on admission; monitor closely - continue home dose of Olmesartan, holding Torsemide Status: Acute (4) Hyperlipidemia, unspecified: Problem details: - on statin as outpatient, holding now Status: Acute Plan - per above - home when sodium stable Subjective Date Seen: 03/15/24 Interval history: Leslie was admitted to the hospital last night for hyponatremia in the setting of recent diarrheal illness and increased free water intake. Sodium in the emergency room was 117. She received hypertonic saline + DDAVP and then sodium increased to 125; subsequently received D5 and sodium decreased to 122 -> 121. This morning, patient is feeling better. She is tolerating po intake. She has a mild headache, but no other concerns for the hospitalist team. Sodium this morning is again 121. Stool studies ordered in the emergency room for diarrhea which has now resolved; no BM since admission. Exam Narrative: Exam Narrative: GEN: Alert and oriented, nontoxic HEENT: EOMIs bilaterally, no scleral icterus CV: RRR, No concerning murmurs R: LCTA bilaterally without concerning wheezing Ext: wwp, no concerning edema Skin: No concerning skin lesions or rashes on exposed skin Neuro: Nonfocal Psych: Appropriate Const: Vital Signs, click to edit/add: Vital Signs - 24 hr 03/14/24 12:10 03/14/24 14:29 03/14/24 14:46 Temperature 98.6 F 97.4 F L Pulse Rate Pulse Rate [Pulse Oximeter] 91 90 92 Respiratory Rate 18 18 20 Blood Pressure [Le ft Arm] 201/105 H Blood Pressure [Ri ght Upper Arm] 175/74 H 165/88 H Pulse Oximetry 97 96 97 Oxygen Delivery Me thod Room Air Room Air Room Air 03/14/24 14:49 03/14/24 15:00 03/14/24 15:14 Temperature Pulse Rate Pulse Rate [Pulse Oximeter] 103 H 91 Respiratory Rate 20 20 Blood Pressure [Le ft Arm] 194/99 H Blood Pressure [Ri ght Upper Arm] Pulse Oximetry 97 Oxygen Delivery Md thod Room Air 03/14/24 16:35 03/14/24 17:58 03/14/24 19:26 Temperature 98.3 F 97.9 F Pulse Rate 90 Pulse Rate [Pulse Oximeter] 91 81 Respiratory Rate 20 16 Blood Pressure [Le ft Arm] 133/82 126/58 L Blood Pressure [Ri ght Upper Arm] Pulse Oximetry 98 94 Oxygen Delivery Md thod Room Air Room Air 03/14/24 23:08 03/14/24 23:37 03/15/24 03:20 Temperature 97.8 F Pulse Rate 79 Pulse Rate [Pulse Oximeter] 85 70 Respiratory Rate 14 18 Blood Pressure [Le ft Arm] 133/73 156/78 H Blood Pressure [Ri ght Upper Arm] Pulse Oximetry 96 97 Oxygen Delivery Md thod Room Air Room Air 03/15/24 07:00 03/15/24 07:00 Temperature 97.6 F Pulse Rate Pulse Rate [Pulse Oximeter] 73 73 Respiratory Rate 18 18 Blood Pressure [Le ft Arm] 131/85 Blood Pressure [Ri ght Upper Arm] Pulse Oximetry 96 Oxygen Delivery Md thod Room Air Labs Labs: Laboratory Results - last 24 hr 03/14/24 03/14/24 03/14/24 13:10 15:15 15:54 WBC 7.31 RBC 5.22 H Hgb 15.0 Hct 44.1 MCV 85 MCH 29 MCHC 34 RDW Coeff of Aimee 12.5 Plt Count 257 Neut % (Auto) 66.0 Lymph % (Auto) 21.8 [place] % (Auto) 9.6 Eos % (Auto) 0.8 Baso % (Auto) 0.4 Neut # (Auto) 4.83 Lymph # (Auto) 1.59 [place] # (Auto) 0.70 Eos # (Auto) 0.06 Baso # (Auto) 0.03 Abs Immat Gran (auto) 0.10 Imm/Tot Granulo (auto) 1.4 Sodium 117 L* Potassium 4.4 Chloride 84 L Carbon Dioxide 26 Anion Gap 7 BUN 10 Creatinine 0.6 Estimated Creat Clear 37.80 Estimated GFR 87 Glucose 104 Lactate 0.9 Calcium 9.0 Ionized Calcium [place] Phosphorus Magnesium 1.7 Total Bilirubin AST ALT Alkaline Phosphatase Troponin I < 0.01 L Total Protein Albumin TSH Urine Color Yellow Urine Appearance Clear Urine pH 7.5 Ur Specific [place] 1.015 Urine Protein Negative Urine Glucose (UA) Negative Urine Ketones Trace A Urine Blood Negative Urine Nitrite Negative Urine Bilirubin Negative Urine Urobilinogen 0.2 Ur Leukocyte Esterase Negative Urine RBC 0-2 Urine WBC 0-2 Ur Squamous Epith Cells None Urine Bacteria None Ur Random Sodium 19 Ur Random Potassium 13.5 03/14/24 03/14/24 03/15/24 17:45 22:00 02:05 WBC RBC Hgb Hct MCV MCH MCHC RDW Coeff of Aimee Plt Count Neut % (Auto) Lymph % (Auto) [place] % (Auto) Eos % (Auto) Baso % (Auto) Neut # (Auto) Lymph # (Auto) [place] # (Auto) Eos # (Auto) Baso # (Auto) Abs Immat Gran (auto) Imm/Tot Granulo (auto) Sodium 125 L 122 L* 122 L* Potassium 3.9 4.0 4.3 Chloride 89 L 89 L 91 L Carbon Dioxide 27 28 26 Anion Gap 9 5 L 5 L BUN 9 9 9 Creatinine 0.6 0.7 0.6 Estimated Creat Clear 37.80 37.80 37.80 Estimated GFR 87 84 87 Glucose 107 132 H 119 H Lactate Calcium 9.5 8.8 8.7 Ionized Calcium [place] Phosphorus Magnesium Total Bilirubin AST ALT Alkaline Phosphatase Troponin I Total Protein Albumin TSH Urine Color Urine Appearance Urine pH Ur Specific [place] Urine Protein Urine Glucose (UA) Urine Ketones Urine Blood Urine Nitrite Urine Bilirubin Urine Urobilinogen Ur Leukocyte Esterase Urine RBC Urine WBC Ur Squamous Epith Cells Urine Bacteria Ur Random Sodium Ur Random Potassium 03/15/24 06:00 WBC 6.12 RBC 4.89 Hgb 14.1 Hct 41.8 MCV 86 MCH 29 MCHC 34 RDW Coeff of Aimee 13.0 Plt Count 231 Neut % (Auto) 51.9 Lymph % (Auto) 33.7 [place] % (Auto) 10.6 Eos % (Auto) 2.5 Baso % (Auto) 0.3 Neut # (Auto) 3.18 Lymph # (Auto) 2.06 [place] # (Auto) 0.60 Eos # (Auto) 0.15 Baso # (Auto) 0.02 Abs Immat Gran (auto) 0.06 Imm/Tot Granulo (auto) 1.0 Sodium 121 L* Potassium 4.0 Chloride 90 L Carbon Dioxide 25 Anion Gap 6 L BUN 9 Creatinine 0.6 Estimated Creat Clear 37.80 Estimated GFR 87 Glucose 124 H Lactate Calcium 8.7 Ionized Calcium [place] 1.07 L Phosphorus 3.6 Magnesium 1.9 Total Bilirubin 0.6 AST 24 ALT 19 Alkaline Phosphatase 57 Troponin I Total Protein 6.1 Albumin 3.9 TSH 2.500 Urine Color Urine Appearance Urine pH Ur Specific [place] Urine Protein Urine Glucose (UA) Urine Ketones Urine Blood Urine Nitrite Urine Bilirubin Urine Urobilinogen Ur Leukocyte Esterase Urine RBC Urine WBC Ur Squamous Epith Cells Urine Bacteria Ur Random Sodium Ur Random Potassium
[2024-03-15 11:00] VITALS: BP 166/92; PULSE 70; RESP 18; TEMP 36.4; O2SAT 96
[2024-03-15 12:43] LABS: Sodium* 121 mmol/L (135-149)
[2024-03-15 15:00] VITALS: BP 162/82; PULSE 78; PULSE 82; RESP 18; TEMP 36.1; O2SAT 94
[2024-03-15 17:52] LABS: Sodium* 121 mmol/L (135-149)
[2024-03-15 19:35] VITALS: PULSE 77
[2024-03-15 20:00] VITALS: BP 135/76; PULSE 72; RESP 18; TEMP 36.4; O2SAT 94
[2024-03-15] MEDS: 3 % SODIUM CHLORIDE 500 ml 50 ML 33.33 ML IV (20:12)
[2024-03-15] MEDS: ENOXAPARIN 40 MG/0.4 ML INJ SUBCUT (20:17)
[2024-03-15] MEDS: SODIUM CHLORIDE 0.9 % (FLUSH) 10 ML SYRINGE 5 ML IVF (20:18)
[2024-03-15] MEDS: OLMESARTAN MEDOXOMIL 20 MG TABLET PO (20:18)
[2024-03-16] VITALS (10 sets, daily range): BP systolic 127–166; BP diastolic 74–93; PULSE 69–91; RESP 16–18; TEMP 35.6–36.6; O2SAT 95–99; BMI 27.1
[2024-03-16 00:04] LABS: Chloride* 88 mmol/L (96-114); Potassium* 4.3 mmol/L (3.6-5.1)
[2024-03-16 00:06] LABS: Creatinine* 0.6 mg/dL (0.5-1.5); Estimated Glomerular Filt Rate 87 ml/min
[2024-03-16 00:07] LABS: Anion Gap 3 mEq/L (7-15); Blood Urea Nitrogen* 11 mg/dL (7-30); Calcium* 8.3 mg/dL (8.4-10.6); Carbon Dioxide* 29 mmol/L (20-32); Glucose* 116 mg/dL (60-115)
[2024-03-16 00:13] LABS: Sodium* 120 mmol/L (135-149)
[2024-03-16] MEDS: 0.9 % SODIUM CHLORIDE 500 ML 500 ML 50 ML IV (00:35)
[2024-03-16] MEDS: SODIUM CHLORIDE 0.9 % (FLUSH) 10 ML SYRINGE 5 ML IVF ×2 (00:36→20:51)
--- NOTE | 2024-03-16 05:00 | PC.NURSE ---
Planned [facility] Downtime today (03/16/24) from [id number].
--- NOTE | 2024-03-16 06:27 | PC.NURSE ---
End of shift note [id number]: Pt noted to be alert & oriented x 4 and able to make needs known. She transfers/ambulates with SBA. IV to L forearm patent with NS running per current order in place. VSS. Pt has been afebrile and on RA throughout the shift. She has been denying pain when asked. Pt continent of bladder with FR order in place. Pt compliant with fluid restriction. Education provided regarding hyponatremia and new orders to receive NS. Pt on tele with NSR noted.
[2024-03-16 07:20] LABS: Chloride* 90 mmol/L (96-114)
[2024-03-16 07:21] LABS: Potassium* 3.8 mmol/L (3.6-5.1)
[2024-03-16 07:23] LABS: Anion Gap 7 mEq/L (7-15); Carbon Dioxide* 25 mmol/L (20-32); Creatinine* 0.5 mg/dL (0.5-1.5); Estimated Glomerular Filt Rate 91 ml/min
[2024-03-16 07:24] LABS: Blood Urea Nitrogen* 7 mg/dL (7-30); Calcium* 8.6 mg/dL (8.4-10.6); Glucose* 107 mg/dL (60-115)
[2024-03-16 07:30] LABS: Sodium* 122 mmol/L (135-149)
[2024-03-16] MEDS: POTASSIUM CHLORIDE 10 MEQ CAPSULE ER 30 MEQ PO ×2 (08:06→17:54)
[2024-03-16] MEDS: SODIUM CHLORIDE 1 GM TABLET PO ×3 (08:06→17:54)
--- NOTE | 2024-03-16 08:18 | CT_ITS ---
Patient: JAVI TRUJILLO Facility:?[facility] Patient ID:?[id number] Site Patient ID:?[id number]. Site :?[id number] Study:?CT-Abdomen/Pelvis 82CC ISOVUE 370-03/16/2024 11:30:49 AM Ordering Physician:Ashley Cheng Final Report: INDICATION: Diarrhea, abdominal pain. TECHNIQUE: CT abdomen and pelvis acquired with 82 cc Isovue 370 IV contrast. COMPARISON: None. FINDINGS: Lower chest: Dependent atelectasis. Liver: Liver is normal in size and attenuation with diffuse hepatic steatosis. Gallbladder and bile ducts: Cholelithiasis without acute cholecystitis. No biliary duct dilatation. Pancreas: Moderate fatty replacement of the pancreas with slight prominence of the pancreatic duct. 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 Air-fluid level is identified within the large diverticulum with retained calcific content. Spleen: Unremarkable. Normal in size. No masses. Adrenal glands: Indeterminate soft tissue nodular thickening of the bilateral adrenal glands. Kidneys: Bilateral kidneys are normal in size and echotexture. No solid mass. There is medially protruding calcified lesion at the upper pole of right kidney , which could be related to renal artery branch calcification. Lower small exophytic cyst at the pole of left kidney. GI tract: Small hiatal hernia. 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 No evidence of bowel obstruction or abnormal wall thickening. No air-fluid levels are identified with the recent diarrheal illness.. Vasculature: Abdominal aorta is of normal caliber with moderate atherosclerotic disease. Lymph nodes: No lymphadenopathy. Peritoneum/Abdominal Wall: Fat containing umbilical hernia. No free intraperitoneal fluid or air. Pelvis: Uterus appears surgically absent. 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 No acute vertebral wedging compression fracture. IMPRESSION: No acute abnormality in the abdomen and pelvis. Diffuse hepatic steatosis. Cholelithiasis without acute cholecystitis. 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 Please note that all CT scans at this facility use dose modulation, iterative reconstruction, and/or weight-based dosing when appropriate to reduce radiation dose to as low as reasonably achievable. Dictated by Lesli Black MD @ 03/16/2024 11:53:51 AM Signed by:?Lesli Black MD @03/16/2024 11:53:51 AM (Electronic Signature)
--- NOTE | 2024-03-16 08:25 | PM.IMPN1 ---
Progress Note: A&P Assessment and plan (1) Hyponatremia: Problem details: - 117 at admission. Given hypertonic saline: 125 (then D5) -> 122 ->121 ->121 - continue to monitor closely with prn hypertonic saline to ensure appropriate rate of correction - 1500mL fluid restriction, protein supplementation, sodium tablets - h/o 2021 admission for same (at that time also had diarrheal illness and was on HCTZ) Status: Acute (2) Diarrhea: Problem details: - likely viral; checking CDIFF when she stools (unless formed) - no acute abnormalities on CT scan 03/16 Status: Acute (3) HTN (hypertension): Problem details: - hypertensive on admission; monitor closely - continue home dose of Olmesartan, holding Torsemide Status: Acute (4) Hyperlipidemia, unspecified: Problem details: - on statin as outpatient, continuing Status: Acute Plan - per above - likely home 03/17 Subjective Date Seen: 03/16/24 Interval history: Leslie was admitted to the hospital on 03/14 for hyponatremia in the setting of recent diarrheal illness and increased free water intake. Sodium in the emergency room was 117. She received hypertonic saline + DDAVP and then sodium increased to 125; subsequently received D5 and sodium decreased to 122 -> 121. In the last 24 hours, sodium has remained between 120-122. Leslie feels a little constipated this morning; CT ab/pelvis reveals no acute abnormalities. Tolerating po intake. Working with therapies. Exam Narrative: Exam Narrative: GEN: Alert and oriented, nontoxic HEENT: EOMIs bilaterally, no scleral icterus CV: RRR, No concerning murmurs R: LCTA bilaterally without concerning wheezing, rales, or rhonchi Ab: No concerning distention, no rebound or guarding Ext: wwp, no concerning edema Skin: No concerning skin lesions or rashes on exposed skin Neuro: Nonfocal Psych: Appropriate Const: Vital Signs, click to edit/add: Vital Signs - 24 hr 03/15/24 11:00 03/15/24 15:00 03/15/24 15:00 Temperature 97.6 F 97 F L Pulse Rate 78 Pulse Rate [Pulse Oximeter] 70 82 Respiratory Rate 18 18 Blood Pressure [Le ft Arm] 166/92 H 162/82 H Pulse Oximetry 96 94 Oxygen Delivery Me thod Room Air Room Air 03/15/24 19:35 03/15/24 20:00 03/15/24 20:00 Temperature 97.6 F Pulse Rate 77 Pulse Rate [Pulse Oximeter] 72 72 Respiratory Rate 18 18 Blood Pressure [Le ft Arm] 135/76 Pulse Oximetry 94 Oxygen Delivery Me thod Room Air 03/16/24 00:00 03/16/24 00:10 03/16/24 00:20 Temperature 97.5 F L Pulse Rate 69 Pulse Rate [Pulse Oximeter] 72 72 Respiratory Rate 18 18 Blood Pressure [Le ft Arm] 127/74 Pulse Oximetry 97 Oxygen Delivery Me thod Room Air 03/16/24 03:30 03/16/24 07:09 03/16/24 08:04 Temperature 96.4 F L 97.4 F L Pulse Rate 77 Pulse Rate [Pulse Oximeter] 76 74 Respiratory Rate 18 16 Blood Pressure [Le ft Arm] 146/76 H 148/81 H Pulse Oximetry 98 99 Oxygen Delivery Ca thod Room Air Room Air Labs Labs: Laboratory Results - last 24 hr 03/15/24 03/15/24 03/15/24 12:08 17:22 23:45 Sodium 121 L* 121 L* 120 L* Potassium 4.3 Chloride 88 L Carbon Dioxide 29 Anion Gap 3 L BUN 11 Creatinine 0.6 Estimated Creat Clear 37.80 Estimated GFR 87 Glucose 116 H Calcium 8.3 L 03/16/24 06:35 Sodium 122 L* Potassium 3.8 Chloride 90 L Carbon Dioxide 25 Anion Gap 7 BUN 7 Creatinine 0.5 Estimated Creat Clear 37.80 Estimated GFR 91 Glucose 107 Calcium 8.6
[2024-03-16] MEDS: 3 % SODIUM CHLORIDE 500 ml 30 ML IV (09:09)
[2024-03-16 12:54] LABS: Sodium* 125 mmol/L (135-149)
[2024-03-16] MEDS: SIMVASTATIN 20 MG TABLET PO (20:50)
[2024-03-16] MEDS: ENOXAPARIN 40 MG/0.4 ML INJ SUBCUT (20:50)
[2024-03-16] MEDS: OLMESARTAN MEDOXOMIL 20 MG TABLET PO (20:50)
[2024-03-17 00:47] VITALS: BP 137/99; PULSE 76; RESP 16; TEMP 36.6; O2SAT 97
[2024-03-17 03:00] VITALS: RESP 16
[2024-03-17 06:47] LABS: Chloride* 97 mmol/L (96-114)
[2024-03-17 06:48] LABS: Sodium* 129 mmol/L (135-149)
[2024-03-17 06:50] LABS: Anion Gap 6 mEq/L (7-15); Carbon Dioxide* 26 mmol/L (20-32); Creatinine* 0.5 mg/dL (0.5-1.5); Estimated Glomerular Filt Rate 91 ml/min
[2024-03-17 06:51] LABS: Blood Urea Nitrogen* 8 mg/dL (7-30); Calcium* 9.1 mg/dL (8.4-10.6); Glucose* 113 mg/dL (60-115)
--- NOTE | 2024-03-17 07:45 | PC.NURSE ---
Pt alert and oriented x3. Afebrile. Pt denies pain, chest pain, SOB, and N/V. Pt is up SBA with walker, voiding, and tolerating a regular diet. Pt slept throughout most of night.
[2024-03-17 08:16] VITALS: BP 152/78; PULSE 98; RESP 18; TEMP 36.3; O2SAT 97
[2024-03-17] MEDS: POTASSIUM CHLORIDE 10 MEQ CAPSULE ER 30 MEQ PO (08:30)
[2024-03-17] MEDS: SODIUM CHLORIDE 1 GM TABLET PO (08:31)
--- NOTE | 2024-03-17 09:47 | P.DS_ITS ---
DS: Providers Provider Date Seen: 03/17/24 Date of admission: 03/14/24 16:35 Primary care physician: Clover Rice PA-C Admitting Clinician: Skylar Moseley MD Consults: OT, PT, Nutrition Attending Physician on discharge: Skylar Moseley MD Date of Discharge: 03/17/24 DS: Diagnosis Discharge Diagnosis (1) Hyponatremia: Status: Acute Problem details: - 117 at admission. Given hypertonic saline: 125 (then D5), then corrected appropriately until 129 on day of discharge - likely 2/2 increased free water intake in the setting of diarrhea prior to stay - patient asymptomatic (2) Diarrhea: Status: Acute Problem details: - likely viral; C-diff ordered on admission, then diarrhea resolved - no acute abnormalities on CT scan 03/16 (3) HTN (hypertension): Status: Acute Problem details: - hypertensive on admission; improved to age appropriate control during stay - continue home dose of Olmesartan, holding Torsemide (4) Hyperlipidemia, unspecified: Status: Acute Problem details: - on statin as outpatient, continued DS: Summary Hospital Course Hospital Course: Leslie was admitted to the hospital on 03/14 for hyponatremia in the setting of recent diarrheal illness and increased free water intake. Sodium in the emergency room was 117. She received hypertonic saline + DDAVP and then sodium increased to 125; subsequ ently received D5 and sodium decreased to 122 -> 121, then appropriately increased to 129 on day of discharge. Diarrhea resolved after admission, unable to collect sample for studies. CT ab/pelvis revealed no acute abnormalities. Patient tolerated po intake during stay, supplemental sodium added to regimen. Seen by therapies, no additional needs identified. Leslie was medically appropriate for d/c home on 03/17/24. Status at Discharge Functional status at discharge: independent ambulation Overall status at discharge: patient is progressing back to baseline Time Spent with Patient Time attestation: Total time spent providing and/or coordinating discharge services: Time spent: Greater than 30 minutes Specific discharge activities: Medication reconciliation, patient education Exam Narrative: Exam Narrative: GEN: Alert and oriented, walking in room, nontoxic HEENT: EOMIs bilaterally, no scleral icterus CV: RRR, No concerning murmurs R: LCTA bilaterally without concerning wheezing Ext: wwp, no concerning edema Skin: No concerning skin lesions or rashes on exposed skin Neuro: Nonfocal Psych: Appropriate Const: Vital Signs, click to edit/add: Vital Signs - 24 hr 03/16/24 11:31 03/16/24 15:33 03/16/24 15:55 Temperature 97.9 F 97.8 F Pulse Rate 90 Pulse Rate [Pulse Oximeter] 91 88 Respiratory Rate 16 16 Blood Pressure [Le ft Arm] 166/85 H 136/80 Pulse Oximetry 96 95 Oxygen Delivery Me thod Room Air Room Air 03/16/24 20:50 03/17/24 00:47 03/17/24 03:00 Temperature 96.1 F L 97.8 F Pulse Rate Pulse Rate [Pulse Oximeter] 78 76 Respiratory Rate 16 16 16 Blood Pressure [Le ft Arm] 162/93 H 137/99 H Pulse Oximetry 95 97 Oxygen Delivery Me thod Room Air Room Air 03/17/24 08:16 Temperature 97.4 F L Pulse Rate Pulse Rate [Pulse Oximeter] 98 Respiratory Rate 18 Blood Pressure [Le ft Arm] 152/78 H Pulse Oximetry 97 Oxygen Delivery Mo thod Room Air DS: Data Data Completed and Pending Labs on day of discharge: Labs from last 24 hours 03/17/24 03/16/24 06:05 12:35 Sodium 129 L 125 L Potassium 4.0 Chloride 97 Carbon Dioxide 26 Anion Gap 6 L BUN 8 Creatinine 0.5 Estimated Creat Clear 37.80 Estimated GFR 91 Glucose 113 Calcium 9.1 Discharge Plan Discharge Disposition: Home, Self-Care Date of Admission: 03/14/24 16:35 Attending Provider on Discharge: Skylar Moseley Discharge Medications: New sodium chloride 1,000 mg Tablet,Soluble 1,000 mg PO TIDWM Qty: 60 0RF Continued simvastatin 20 mg tablet 20 mg PO HS calcium carbonate-vitamin D3 [Caltrate with Vitamin D3] 600 mg-20 mcg (800 unit) tablet 1 tab PO BID polyethylene glycol 3350 [Miralax] 17 gram/dose powder 17 g PO DAILY PRN potassium chloride 10 mEq Capsule, Extended Release 30 meq PO BIDWM Qty: 180 0RF torsemide 10 mg tablet 10 mg PO DAILY Qty: 30 2RF olmesartan 20 mg tablet 20 mg PO HS Discharge Orders: Discharge Order (Routine); Ordered 03/17/24 Ordered By: kSylar Moseley Patient Education: Sodium Chloride (By mouth), Hyponatremia (DC) Additional Instructions: Your sodium level was low here, likely in the context of dehydration and then too much water intake without enough food/protein. Changes during stay: - we didn't give you your diuretic (Torsemide) during stay. I would take this ONLY as needed from now on - You started sodium tablets three times/day. I would continue these 2-3 t imes/day until labs next week - I would try to not overdo water (consider limiting intake to around 2000mL/day but this doesn't need to be strict), make sure you're eating good amounts of protein Activity Level: Activity as Tolerated Discharge Diet: Regular Follow Up Appointments: Other [Other] - 03/23/24 12:00 pm (Lab appointment--BMP result to go to your primary care ) Clover Rice [place]anta [Primary Care Provider] - 03/28/24 (Patient already has appt with Clover on 03/28. ) Forms: [employer] Info Instructions
== END 2024-03-17 10:05 | disposition home or self-care (01) | DRG 641 ==
LOC: ED 14:08 → MEDSURG 14:43
PROVIDERS: Student in an Organized Health Care Education/Training Program; Admitting Provider Family Medicine; Emergency Provider Emergency Medicine; PCP Physician Assistant Medical; Visit Provider Family Medicine
DX: E87.1 Hypo-osmolality and hyponatremia (principal); A08.4 Viral intestinal infection, unspecified; I10 Essential (primary) hypertension; F41.9 Anxiety disorder, unspecified; E78.5 Hyperlipidemia, unspecified
CPT/HCPCS: 36415; 74177; 80048; 80053; 81001; 82330; 82436; 83605; 83735; 83930; 83935; 84100; 84133; 84295; 84300; 84443; 84484; 85025; 87045; 87046; 87427; 87493; 93005; 97116; 97162; 97165; 97530; 97535; 99283; 99285; A9270; J1650; J2405; J2470; J2597; J7030; J7070; J7131; Q9967

== ENCOUNTER 2024-08-24 12:51 | Emergency (ER) | payer MEDICARE, BC, SELFPAY ==
--- OUTSIDE RECORDS SUMMARY | 2024-08-24 12:54 | XMS_ITS | Clinical Summary ---
Author Organization [facility] Address [address] [place] [address] Care Team Providers Care Fitter Mechanic Name Role Phone Ofelia Mina MD Unavailable [phone] Cori Castellon Unavailable Unavailab Clover Blackmon Primary Care Provider Allergies Active Allergy Reactions Criticality Noted Date Comments Aluminum Chloride Rash 12/22/2022 Lisinopril Cough 07/21/2019 Losartan Rash 10/14/2021 Penicillins Rash 03/19/2007 Sertraline Diarrhea 02/18/2022 Electrolyte imbalance due to diarrhea Medications CALTRATE PLUS 600 MG-400 UNIT TAB twice daily 0 04/20/20 09 Active glycerin suppository Insert 1 Suppository (1 g) rectally once daily if needed for Constipation. 0 11/23/19 22 Active polyethylene glycoL (MIRALAX) 17 gram/scoop powder Mix in liquid then take by mouth. 01/15/20 22 Active olmesartan (BENICAR) 20 mg tabletIndications: Essential hypertension Take 1 Tablet (20 mg) by mouth once daily. 90 Tablet 3 09/04/19 24 Active simvastatin (ZOCOR) 20 mg tabletIndications: Mixed hyperlipidemia Take 1 Tablet (20 mg) by mouth at bedtime. 90 Tablet 3 09/04/19 24 Active potassium chloride (MICRO-K) 10 mEq Controlled-release capsuleIndications :Essential hypertension Take 3 Capsules (30 mEq) by mouth two times daily with meals. 540 Capsule 3 09/04/19 24 Active ubidecarenone (coenzyme Q10) 100 mg tab Take 1 Tablet (100 mg) by mouth once every other day. 01/08/20 24 Active triamcinolone 0.5 % creamIndications:D ermatitis Apply topically to affected area(s) three times daily. 15 g 3 03/28/20 24 Active amLODIPine (NORVASC) 2.5 mg tabletIndications: HTN (hypertension) Take 1 Tablet (2.5 mg) by mouth once daily. 90 Tablet 3 04/04/20 24 Active Active Problems Problem Noted Date Diagnosed Date Depression, major, single episode, mild 06/30/19 23 Left leg pain 03/19/2022 Overview (03/19/2022): ~ February 2022: L4-L5 [place] epidural steroid injection by Dr. Miller. Primary osteoarthritis of right knee 08/07/2021 Overview (08/20/2021): July 2021: Dr. Young did cortisone injection to right knee. At 2 weeks, is 100% pain relief per [employer] Message. Muscle cramps 10/01/2020 Hypokalemia 07/21/2019 Anxiety 10/12/2015 Routine general medical exam ination at a health care facility 07/28/2014 Overview (07/28/2014): Colonoscopy 2011. No need for further testing. 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 ACP (advance care planning) 06/08/2013 Overview (06/08/2013): See directive 09/01/11 Sensorineural hearing loss, bilateral 10/11/2012 Cholesteatoma 07/20/2012 Osteopenia 03/24/2008 Overview (07/28/2014): Dexa 2009, osteopenia, minimal price changer 8 years. Discussed and will not repeat test. Diana Kay M.D. 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 07/20/2012 Pelvic mass 05/30/2011 07/20/2012 Encounters Date Type Department Care Team Description 08/24/2024 Nurse Triage [facility] [address] [facility] [address] Clover Rice PA High Blood Pressure 08/19/2024 Telephone [facility] [address] [place] [address] Clover Rice PA Medication Management (amLODIPine (NORVASC) 2.5 mg tablet) 08/02/2024 9:50 AM CDT Office Visit [facility] [address] [facility] [address] Clover Rice PA Fatigue (Extreme fatigue / also needs handicap sticker renewed); Hair/Scalp Problem (Hair loss); Foot Problem (Numbness / tingling in feet); Derm Problem (Itch all over); Dizziness (Gets dizzy when she stands up) 08/01/2024 Travel from Last 3 Months Immunizations Immunization Administration Dates Next Due AMB INFLUENZA IIV3 [...] 30mcg/0.3mL) PF, MDV 02/15/2021,07/14/2020,06/23/2020 Influenza, High-dose Inactivated 03/28/2016,01/2015,02/28/2014 Influenza, IIV3 (Age 6-35 mos) 04/20/2009 Influenza, IIV3 (Age >=3 years) 03/08/20 13,03/05/2012,05/30/2011,2009,04/20/2009,03/24/2008,03/19/2007,1 06/22/2005,04/12/2005,03/14/2004, 003 Influenza, Inactivated AIIV4 (Age 65+ Years) Preserv Free 03/06/2023,02/18/2022,03/06/2021 Influenza, Inactivated IIV3 (Age 65+ Years) Preserv Free 03/28/2024,01/20/2018,03/19/2017 Pneumococcal Poly,23-Valent (Pneumovax) 12/05/2003 Pneumococcal conj 13-Valent [...] 0 09/04/2023 Social Connections Answer Date Recorded Do you often feel lonely or isolated from those around you? 0 01/06/2024 Financial Resource Strain Answer Date R ecorded Difficulty of Paying Living Expenses 3 01/06/2024 Difficulty of Paying Living Expenses Not on file 01/06/2024 Food Insecurity Answer Date Recorded Do you worry your food will run out before you are able to buy more? 1 01/06/2024 Transportation Needs Answer Date Record ed Does lack of transportation keep you from medica l appointments? 1 01/06/2024 Does lack of transportation keep you from work, meetings or getting things that you need? 1 01/06/2024 Housing Stability Answer Date Recorded What is your housing situation today? 1 01/06/2024 Utilities Answer Date Recorded Do you have trouble paying f or utilities (for example, heat, electricity, water, phone)? 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 Gender Identity Not on file Sexual Orientation Not on file Obstetrics History Last Filed Vital Signs Vital Sign Reading Time Taken Comments Blood Pressure 161/75 08/02/2024 9:54 AM CDT Pulse 80 08/02/2024 9:54 AM CDT Temperature 36.5 C (97.7 F) 12/09/2023 9:45 AM CDT Respiratory Rate 16 05/17/2022 12:12 PM SENIOR PROPERTY ACCOUNTANT Oxygen Saturation 97% 04/04/2024 2:14 PM SENIOR PROPERTY ACCOUNTANT Inhaled Oxygen Concentration - - Weight 77.6 kg (171 lb) 08/02/2024 9:51 AM CDT Height 167.6 cm (5' 6) 09/04/2023 10:43 AM CDT Body Mass Index 27.6 09/04/2023 10:43 AM CDT Plan of Treatment Upcoming Encounters Date Type Department Care Team (Late st Contact Info) Description 10/10/2024 10:20 AM CDT Office Visit [facility] [address] [place] [address] Rick Dick MD [address] [facility] [address] [place], [place] [id number] Health Maintenance Due Date Last Done Comments RSV vaccine for adults or (1 - 1-dose 75+ series) 2012 Tetanus booster 06/04/2022 06/04/2012, 01/28/2006 COVID-19 vaccine series ( season) 2024 02/01/2024, 02/18/2023, 02/10/2022, Additional history exists BMI (ht and wt on same day) for age 18+ 09/03/2024 09/04/2023, 12/22/2022, 09/01/2022, Additional history exists Depression screening for age 12+ 09/03/2024 09/04/2023, 09/12/2022, 09/02/2022, Additional history exists Medicare Wellness for age 65+ 09/04/2024, 09/01/2022, 08/29/2016, Additional history exists Tdap Completed 06/04/2012 Pneumococcal series for age 50+ Completed 5, 12/05/2003 DEXA/DXA scan for age 65+ Completed 08/23/2015, 03/2009 Zoster (shingles) series for age 50+ Completed 12/11/2020, 09/18/2020, 05/30/2020, Additional history exists Influenza Vaccine Completed 03/28/2024, , 02/18/2022, Additional history exists Procedures Procedure Name Priority Date/Time Associated Diagnosis Comments COMP METABOLIC PANEL Routine 08/02/2024 10:46 AM CDT HTN (hypertension) Hyponatremia CBC WITH AUTO DIFFERENTIAL Routine 08/02/2024 10:46 AM CDT Anemia of unknown etiology VITAMIN B12 Routine 08/02/2024 10:46 AM CDT Anemia of unknown etiology XR DXA BONE DENSITY 2 SITES AXIAL Routine 08/23/2015 8:42 AM CDT Osteopenia from Last 3 Months or Most Recently Relevant to Health Maintenance Results * (ABNORMAL) CBC AND DIFFERENTIAL (08/02/2024 10:46 AM CDT) WHITE BLOOD CELL COUNT 7.4 3.8 - 10.8 Thousand/u L [facility] RED BLOOD CELL COUNT 5.35(H) 3.80 - 5.10 Million/uL [facility] HEMOGLOBIN 15.5 11.7 - 15.5 g/dL [facility] HEMATOCRIT 48.1(H) 35.0 - 45.0 % [facility] MCV 89.9 80.0 - 100.0 fL [facility] MCH 29.0 27.0 - 33.0 pg [facility] MCHC 32.2 32.0 - 36.0 g/dL [facility] Comment: For adults, a slight decrease in the calculated MCHC value (in the range of 30 to 32 g/dL) is most likely not clinically significant; however, it should be interpreted with caution in correlation with other red cell parameters and the patient's clinical condition. RDW 12.8 11.0 - 15.0 % [facility] PLATELET COUNT 232 140 - 400 Thousand/u L [facility] MPV 11.7 7.5 - 12.5 fL [facility] ABSOLUTE NEUTROPHILS 4,521 1,500 - 7,800 cells/uL [facility] ABSOLUTE LYMPHOCYTES 1,976 850 - 3,900 cells/uL [facility] ABSOLUTE MONOCYTES 681 200 - 950 cells/uL [facility] ABSOLUTE EOSINOPHILS 163 15 - 500 cells/uL [facility] ABSOLUTE BASOPHILS 59 0 - 200 cells/uL [facility] NEUTROPHILS 61.1 % [facility] LYMPHOCYTES 26.7 % [facility] MONOCYTES 9.2 % [facility] EOSINOPHILS 2.2 % [facility] BASOPHILS 0.8 % [facility] Blood BLOOD SPECIMEN / Unknown 08/02/2024 10:46 AM CDT 08/02/2024 10:46 AM CDT us [facility]ANTOJA HEMATOLOGY Final R esult [facility] [address] [place] [address], [facility] [address] [place] [address] * VITAMIN B12 (08/02/2024 10:46 AM CDT) [facility] VITAMIN B12 312 200 - 1,100 pg/mL [facility] Comment: Please Note: Although the reference range for vitamin B12 is 200-1100 pg/mL, it has been reported that between 5 and 10% of patients with values between 200 and 400 pg/mL may experience neuropsychiatric and hematologic abnormalities due to occult B12 deficiency; less than 1% of patients with values above 400 pg/mL will have symptoms. Blood BLOOD SPECIMEN / Unknown 08/02/2024 10:46 AM CDT 08/02/2024 10:46 AM CDT [facility] CHEMISTRY Final R esult [employer] [facility] [address] [place] [address], [facility] [address] [place] [address] * (ABNORMAL) COMP METABOLIC PANEL (08/02/2024 10:46 AM CDT) [facility] GLUCOSE 112(H) 65 - 99 mg/dL [facility] Comment: Fasting reference interval For someone without known diabetes, a glucose value between 100 and 125 mg/dL is consistent with prediabetes and should be confirmed with a follow-up test. UREA NITROGEN (BUN) 12 7 - 25 mg/dL [facility] CREATININE 0.74 0.60 - 0.95 mg/dL [facility] EGFR 79 > OR = 60 mL/min/1. 73m2 [facility] BUN/CREATININE RATIO SEE NOTE: 6 22 (calc) [facility] Comment: Not Reported: BUN and Creatinine are within reference range. SODIUM 139 135 - 146 mmol/L [facility] POTASSIUM 4.5 3.5 - 5.3 mmol/L [facility] CHLORIDE 99 98 - 110 mmol/L [facility] CARBON DIOXIDE 32 20 - 32 mmol/L [facility] CALCIUM 10.1 8.6 - 10.4 mg/dL [facility] PROTEIN, TOTAL 7.1 6.1 - 8.1 g/dL [facility] ALBUMIN 4.7 3.6 - 5.1 g/dL [facility] GLOBULIN 2.4 1.9 - 3.7 g/dL (calc) [facility] ALBUMIN/GLOBULIN RATIO 2.0 1.0 - 2.5 (calc) [facility] BILIRUBIN, TOTAL 0.8 0.2 - 1.2 mg/dL [facility] ALKALINE PHOSPHATASE 70 37 - 153 U/L [facility] AST 24 10 - 35 U/L [facility] ALT 19 6 - 29 U/L [facility] Blood BLOOD SPECIMEN / Unknown 08/02/2024 10:46 AM CDT 08/02/2024 10:46 AM CDT [facility] CHEMISTRY Final R esult [facility] [address] [place] [address], [facility] [address] * (ABNORMAL) XR DEXA BONE DENSITY 2 SITES [05911.1] (08/23/2015 8:42 AM CDT) Anatomical Region Laterality Modality Spine, HIPS, HIPL, HIPR Other Narrative 08/28/2015 11:39 AM CDT Please see scanned document for results of this study. [facility] P[facility]OJA DEXA Final R esult from Last 3 Months or Most Recently Relevant to Health Maintenance Insurance [employer] [place] BLUE MR PB ONLY Advance Directives Documents on File Type Date Recorded Patient Manager Implementation Expl anation Healthcare Directive 09/01/2011 * Full Code (Latest Code Status on File) Date Activated Date Inactivated Comments 07/30/2012 10:09 AM 07/30/2012 5:38 PM * Full Code Date Activated Date Inactivated Comments 08/25/2011 9:55 AM 08/29/2011 1:03 PM * Full Code Date Activated Date Inactivated Comments 08/25/2011 5:50 AM 08/25/2011 9:55 AM Care Teams Fitter Mechanic Relationship Specialty Start Date End Date Clover Rcie PA [address] [place] [address] PCP - General Physician Calculation Reviewer 01/13/22 Ofelia Mina MD Obstetrics and Gynecology 06/04/12 Cori Castellon [facility] 06/04/12
[2024-08-24 13:24] VITALS: BP 214/102; PULSE 93; RESP 16; TEMP 36.4; O2SAT 93; BMI 28.0
--- NOTE | 2024-08-24 14:48 | ED.GENADULT ---
HPI - General Adult General Chief complaint: Hypertension Stated complaint: High bp Time Seen by Provider: 08/24/24 12:53 History of Present Illness HPI narrative: Patient is 88 year white female who was stopped from amlodipine in the last couple of weeks because she felt dizzy and a little bit weak. She felt better after up being off the medication but now her blood pressure is higher. She has not had real effects of that, no chest pain, no shortness of breath, but she is concerned that it is elevated. She has been on some other medication the past but she does not remember them. She sees Clover Zayas at a line a. She has an pulse at 93, her blood pressure is 214/102 here it will be retested. Related Data Home Medications ?Medication ?Instructions ?Recorded ?Confirmed simvastatin 20 mg tablet 20 mg PO HS 01/13/22 03/14/24 calcium 600 mg (as 1 tab PO BID 01/14/22 03/14/24 carbonate)-vitamin D3 20 mcg (800 unit) tablet (Caltrate with Vitamin D3) polyethylene glycol 3350 17 17 g PO DAILY PRN 01/14/22 03/14/24 gram/dose oral powder (Miralax) olmesartan 20 mg tablet 20 mg PO HS 11/02/22 03/14/24 Previous Rx's ?Medication ?Instructions ?Recorded potassium chloride 10 mEq 30 meq (3 x 10 mEq) PO BIDWM #180 01/15/22 capsule,extended release caps torsemide 10 mg tablet 10 mg PO DAILY #30 tabs 01/15/22 sodium chloride 1,000 mg soluble 1,000 mg PO TIDWM #60 tabs 03/17/24 tablet metoprolol succinate 25 mg 12.5 mg (1/2 x 25 mg) PO DAILY #14 08/24/24 tablet,extended release 24 hr tabs Allergies Allergy/AdvReac Type Severity Reaction Status Date / Time aluminum (From Drysol) Allergy Severe Blister Verified 08/24/24 13:24 lisinopril Allergy Mild Verified 08/24/24 13:24 losartan Allergy Verified 08/24/24 13:24 Penicillins Allergy Verified 08/24/24 13:24 sertraline (From Zoloft) Allergy Verified 08/24/24 13:24 Review of Systems Status of ROS: Reports: 6 or more systems reviewed and unremarkable except as noted in History and below PFSH PFSH Medical History Osteoarthritis of left knee ?M17.12 - Unilateral primary osteoarthritis, left knee (ICD-10) Tear of lateral meniscus of left knee ?S83.282A - Other tear of lateral meniscus, current injury, left knee, initial encounter (ICD-10) Effusion, left knee ?M25.462 - Effusion, left knee (ICD-10) Allergic reaction ?T78.40XA - Allergy, unspecified, initial encounter (ICD-10) Major depressive disorder, single episode, mild ?F32.0 - Major depressive disorder, single episode, mild (ICD-10) Sensorineural hearing loss, bilateral ?H90.3 - Sensorineural hearing loss, bilateral (ICD-10) Hyperlipidemia, unspecified ?E78.5 - Hyperlipidemia, unspecified (ICD-10) Osteoarthritis of right knee ?M17.11 - Unilateral primary osteoarthritis, right knee (ICD-10) Hypokalemia ?E87.6 - Hypokalemia (ICD-10) Anxiety ?F41.9 - Anxiety disorder, unspecified (ICD-10) Squamous cell carcinoma in situ ?D09.9 - Carcinoma in situ, unspecified (ICD-10) Cholesteatoma ?H71.90 - Unspecified cholesteatoma, unspecified ear (ICD-10) HTN (hypertension) ?I10 - Essential (primary) hypertension (ICD-10) Osteopenia ?M85.80 - Other specified disorders of bone density and structure, unspecified site (ICD-10) Surgical History History of hysterectomy ?Z90.710 - Acquired absence of both cervix and uterus (ICD-10) Family History Mother High blood pressure Social History Narrative: She lives at [address] [place] [address] She reports generally this is going well for her. She was a few years ago and does find that sometimes his heart being alone. 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 Her son Danny is healthcare power of regulatory attorney. Code status is full. What is your current living situation?: I presently have a place to live Problems where you live: no known problems Problems where you live details: none In the past 12 months, utilities in danger of being shut off: no In past 12 months, lack of transportation kept you from medical appts, meetings, work, or getting things needed for daily living: no In the past 12 mos, have been you worried that your food would run out before you had money to buy more?: never true In the past 12 mos, the food you bought just didn't last and you didn't have money to buy more?: never true Highest level of school completed/degree received: some college, no degree Smoking Status: Never smoker Do you use any of these nicotine containing products: None Second hand tobacco smoke exposure: No How often do you have a drink containing alcohol: 2-3 times a week Alcohol type: wine How many standard drinks containing alcohol do you have on a typical day: 1 or 2 How often do you have six or more drinks on one occasion: Never AUDIT-C Alcohol total score: 3 Non-prescribed substance use: denies use Caffeine: Yes (2-3 cups of coffee) How often does anyone, including family, friends and others, physically hurt you: never How often does anyone, including family, friends and others, insult or talk down to you: never How often does anyone, including family, friends and others, threaten you with harm: never How often does anyone, including family, friends and others, scream or curse at you: never Are you using contraception or practicing any form of control: No service: No Exam Narrative: Exam Narrative: Objective: Patient's vital signs are unremarkable and her blood pressure being elevated Alert or x3 Neurologic nonfocal Pulses regular O2 sat 90% on room air Const: Vital Signs, click to edit/add: Vital Signs - 24 hr 08/24/24 13:24 08/24/24 15:22 08/24/24 15:32 Temperature 97.6 F Pulse Rate [Pulse Oximeter] 93 Respiratory Rate 16 Blood Pressure 182/106 H 183/94 H Blood Pressure [Ri ght Upper Arm] 214/102 H Pulse Oximetry 93 Oxygen Delivery Me thod Room Air Course Vital Signs Vital signs: Initial Vital Signs Temperature 97.6 F 08/24/24 13:24 Temperature Source Oral 08/24/24 13:24 Pulse Rate 93 08/24/24 13:24 Respiratory Rate 16 08/24/24 13:24 Blood Pressure 214/102 H 08/24/24 13:24 Blood Pressure Mean 139 H 08/24/24 13:24 Blood Pressure Position Sitting 08/24/24 13:24 Pulse Oximetry 93 08/24/24 13:24 Oxygen Delivery Method Room Air 08/24/24 13:24 Vital Signs Temperature 97.6 F 08/24/24 13:24 Pulse Rate 93 08/24/24 13:24 Respiratory Rate 16 08/24/24 13:24 Blood Pressure 214/102 H 08/24/24 13:24 Pulse Oximetry 93 08/24/24 13:24 Oxygen Delivery Method Room Air 08/24/24 13:24 Temperature 97.6 F 08/24/24 13:24 Pulse Rate 93 08/24/24 13:24 Respiratory Rate 16 08/24/24 13:24 Blood Pressure 183/94 H 08/24/24 15:32 Pulse Oximetry 93 08/24/24 13:24 Oxygen Delivery Method Room Air 08/24/24 13:24 Medications Administered Medications: Discontinued Medications Generic Name Dose Route Start Last Admin Trade Name Freq PRN Reason Stop Dose Admin Metoprolol Tartrate 25 mg 08/24/24 14:45 08/24/24 15:00 Metoprolol Tartrate 25 Mg Tablet PO 08/24/24 14:46 25 mg ONCE ONE Administration Medical Decision Making MDM Narrative Medical decision making narrative: [age] white female with chronic hypertension since age 42 recently stopped on amlodipine due to side effect. She seems better off the amlodipine but now has elevated blood pressure. She is on home start an at night, tolerating that well. Blood pressure is elevated today and has been at home as well in the 100 diastolic range. I think it be reasonable to give her a 25 mg metoprolol tablet make sure blood pressure is not going further up. Will also prescribe long-acting metoprolol 12.5 mg daily for the next couple of weeks starting tomorrow and follow-up with Clover Zayas within the next week to recheck her blood pressure she will check them twice a day. Light activity or activity as tolerated if she is feeling well. Return to ED sooner problems or concerns. Addendum 3:25 p.m.: The patient blood pressure is now 180 systolic over 102, I think clearly it is not going up at this point, we can start the metoprolol 12.5 XL tomorrow and daily for the next couple of weeks, follow-up appointment in the clinic in a week, check her blood pressure couple times a day. Return as needed. Discharge Plan Discharge Clinical Impression: Hypertension Patient Disposition: Home, Self-Care Condition: Stable Additional Instructions: Check your blood pressure a couple times of day, follow up with your regular doctor in the next week. Start metoprolol XL 12.5 mg daily. Follow up appointment is [facility] at [facility] on 08/31 with a 1pm appointment time. Please arrive at 12:50pm to complete paperwork. If you have any questions or need to reschedule, please call [phone]. Activity Level: No Restrictions Discharge Diet: Regular Prescriptions: New metoprolol succinate 25 mg tablet extended release 24 hr 12.5 mg PO DAILY Qty: 14 2RF No Action simvastatin 20 mg tablet 20 mg PO HS calcium carbonate-vitamin D3 [Caltrate with Vitamin D3] 600 mg-20 mcg (800 unit) tablet 1 tab PO BID polyethylene glycol 3350 [Miralax] 17 gram/dose powder 17 g PO DAILY PRN potassium chloride 10 mEq Capsule, Extended Release 30 meq PO BIDWM Qty: 180 0RF torsemide 10 mg tablet 10 mg PO DAILY Qty: 30 2RF olmesartan 20 mg tablet 20 mg PO HS sodium chloride 1,000 mg Tablet,Soluble 1,000 mg PO TIDWM Qty: 60 0RF Follow Up/Referrals: Clover Rice PA-C [Primary Care Provider] - Stand Alone Forms: MyHealth Info Instructions
[2024-08-24] MEDS: METOPROLOL TARTRATE 25 MG TABLET PO (15:00)
[2024-08-24 15:22] VITALS: BP 182/106
[2024-08-24 15:32] VITALS: BP 183/94
--- OUTSIDE RECORDS SUMMARY | 2024-08-24 15:59 | XMS_ITS | Clinical Summary ---
Author Organization [facility] Address [address] [place] [id number] Care Team Providers Care Nailing Machine Operator Name Role Phone Ofelia Mina MD Unavailable [phone] Cori Castellon Unavailable Unavailab Clover Blackmon Primary [...] 2 weeks, is 100% pain relief per [employer] Message. Muscle cramps 10/01/2020 Hypokalemia 07/21/2019 Anxiety 10/12/2015 Routine general medical exam ination at a health care facility 07/28/2014 Overview (07/28/2014): Colonoscopy 2011. No need for further testing. 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 Discussed and will not repeat test. Diana Kay M.D. 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 07/20/2012 Pelvic mass 05/30/2011 07/20/2012 Encounters Date Type Department Care Team Description 08/24/2024 Nurse Triage [facility] [address] [facility] [address] Clover Rice PA High Blood Pressure 08/19/2024 Telephone [facility] [address] [facility] [address] Clover Rice PA Medication Management (amLODIPine (NORVASC) 2.5 mg tablet) 08/02/2024 9:50 AM CDT Office Visit [facility] [address] [facility] [address] Clover Rice PA Fatigue (Extreme fatigue / [...] on file Legal Sex Female 5:26 AM DIRECTOR CENTER Gender Identity Not on file Sexual Orientation Not on file Obstetrics History Last Filed Vital Signs Vital Sign Reading Time Taken Comments Blood Pressure 161/75 08/02/2024 9:54 AM CDT Pulse 80 08/02/2024 9:54 AM CDT Temperature 36.5 C (97.7 F) 12/09/2023 9:45 AM CDT Respiratory Rate 16 05/17/2022 12:12 PM [facility] C[facility] Oxygen Saturation 97% 04/04/2024 2:14 PM DIRECT[facility] C[facility] Inhaled Oxygen Concentration - - Weight 77.6 kg (171 lb) 08/02/2024 9:51 AM CDT Height 167.6 cm (5' 6) 09/04/2023 10:43 AM CDT Body Mass Index 27.6 09/04/2023 10:43 AM CDT Plan of Treatment Upcoming Encounters Date Type Department Care Team (Late st Contact Info) Description 08/31/2024 1:00 PM CDT Office Visit [facility] [address] [place] [address] Clover Rice PA [address] [place] [address] 10/10/2024 10:20 AM CDT Office Visit [facility] [address] [place] [address] Rick Dick MD [address] [place] [address] Health Maintenance Due Date Last Done Comments [...] CBC AND DIFFERENTIAL (08/02/2024 10:46 AM CDT) Pathologist [facility] WHITE BLOOD CELL COUNT 7.4 3.8 - 10.8 Thousand/u L [facility] RED BLOOD CELL COUNT 5.35(H) 3.80 [...] us Clover PANTOJA HEMATOLOGY Final R esult Dind[facility] [address] [place] [address], [place] [phone] [facility] [address] [place] [address] * VITAMIN B12 (08/02/2024 10:46 AM CDT) [facility] VITAMIN B12 312 200 - 1,100 pg/mL PPTVmac Noé Comment: Please Note: Although the reference [...] CDT Clover PANTOJA CHEMISTRY Final R esult Dindong [facility] [address] [place] [phone], [facility] [address] [place] [phone] * (ABNORMAL) COMP METABOLIC PANEL (08/02/2024 10:46 AM CDT) [facility] GLUCOSE 112(H) 65 - 99 mg/dL [email or web address] Comment: Fasting reference interval For someone without known diabetes, a glucose value between 100 and 125 mg/dL is consistent with prediabetes and should be confirmed with a follow-up test. UREA NITROGEN (BUN) 12 7 - 25 mg/dL [facility] CREATININE 0.74 0.60 - 0.95 mg/dL PPTVod Noé EGFR 79 > OR = 60 mL/min/1. 73m2 [facility] BUN/CREATININE RATIO SEE NOTE: 6 - 22 (calc) PPTVmac Noé Comment: Not Reported: BUN and Creatinine are within reference range. SODIUM 139 135 - 146 mmol/L [facility] POTASSIUM 4.5 3.5 - 5.3 mmol/L [facility] CHLORIDE 99 98 - 110 mmol/L [facility] CARBON DIOXIDE 32 20 - 32 mmol/L [facility] CALCIUM 10.1 8.6 - 10.4 mg/dL [facility] PROTEIN, TOTAL 7.1 6.1 - [...] 08/02/2024 10:46 AM CDT us Clover PANTOJA CHEMISTRY Final R esult Dindong [facility] [address] [place] [address], [facility] [address] [place] [phone] * (ABNORMAL) XR DEXA BONE DENSITY 2 SITES [27698.1] (08/23/2015 8:42 AM CDT) Anatomical Region Laterality Modality Spine, HIPS, HIPL, HIPR Other Narrative 08/28/2015 11:39 AM CDT Please see scanned document for results of this study. us Clover PANTOJA DEXA Final R esult from Last 3 Months or Most Recently Relevant to Health Maintenance Insurance [employer] [place] BLUE MR [place] ONLY Advance Directives Documents on File Type Date Recorded Patient Assurance Services Manager Health Care Expl anation Healthcare Directive 09/01/2011 * Full Code (Latest Code Status on File) Date Activated Date Inactivated Comments 07/30/2012 10:09 AM 07/30/2012 5:38 PM * Full Code Date Activated Date Inactivated Comments 08/25/2011 9:55 AM 08/29/2011 1:03 PM * Full Code Date Activated Date Inactivated Comments 08/25/2011 5:50 AM 08/25/2011 9:55 AM Care Teams Nailing Machine Operator Relationship Specialty Start Date End Date Clover Rice PA [address] [place] [address] PCP - General Physician [employer] Teacher 01/13/22 Ofelia Mina MD Obstetrics and Gynecology 06/04/12 Cori Castellon CHILD NEUROLOGIST 06/04/12
== END 2024-08-24 15:45 | disposition home or self-care (01) ==
LOC: ED 15:57
PROVIDERS: Emergency Provider Family Medicine; PCP Physician Assistant Medical
DX: R42 Dizziness and giddiness (principal); R53.1 Weakness; I10 Essential (primary) hypertension
CPT/HCPCS: 99283; 99284; A9270